=== PATIENT | male | born 1935 | race Caucasian/White ===

== ENCOUNTER → 2017-02-24 | Outpatient (CLI) | payer OTHER, MEDICARE ==
[2017-02-24 16:41] LABS: BASO % 0.4 %; BASO ABS # 0.05 K/uL (0-0.2); COMPLETE YES; EOS % 2.4 %; HEMATOCRIT 40.7 % (42-52); IG% 0.7 %; LYMPH % 28.2 %; MEAN CORPUSCULAR HEMOGLOBIN 32.8 pg (25-34); MEAN CORPUSCULAR HGB CONC 32.4 g/dl (32-36); MEAN PLATELET VOLUME 11.1 fL (7.4-10.4); MONO % 6.9 %; NEUT % 61.4 %; PLATELET COUNT 199 K/uL (130-400); RED BLOOD COUNT 4.03 M/uL (4.7-6.1); WHITE BLOOD COUNT 14.16 K/uL (4.8-10.8)
[2017-02-24 16:50] LABS: ALT/SGPT 22 U/L (12-78); AST/SGOT 18 U/L (15-37); BLOOD UREA NITROGEN 24 mg/dl (7-18); CALCIUM 9.6 mg/dl (8.5-10.1); CARBON DIOXIDE 31 mmol/L (21-32); CHLORIDE 106 mmol/L (98-107); GLUCOSE 95 mg/dl (70-99); POTASSIUM 4.1 mmol/L (3.5-5.1); SODIUM 142 mmol/L (136-145)
[2017-02-24 16:53] LABS: ALB/GLOB RATIO 0.9 (0.9-2); ALKALINE PHOSPHATASE 49 U/L (45-117)
[2017-02-25 06:10] LABS: ESTIMATED AVERAGE GLUCOSE 154 mg/dl; HA1C FLAG Normal (Normal)
--- NOTE | 2017-03-01 11:24 | CODING QUERY MEDICAL NECESSITY ---
SUPPORTING DIAGNOSIS NEEDED A supporting diagnosis is required for the test/procedure performed on this patient in order for us to be reimbursed by the patient's insurance. Please provide a supporting diagnosis for the following test/procedure listed below next to the test name along with your signature. *If there is no additional diagnosis for this patient that would support the following test/procedure please document that below next to the test/procedure. Test(s)/Procedure(s) that require a supporting diagnosis: DOS 02/24 * Hba1c DIAGNOSIS: Provider Signature: Date: Thank you Ariela Otto [facility] Information Management Once completed, please kindly fax back to [phone] For questions please call [phone]
== END | disposition home or self-care (01) ==
LOC: C.LABBC 13:54
PROVIDERS: ATTEND Internal Medicine
DX: I10 Essential (primary) hypertension (principal); E11.40 Type 2 diabetes mellitus with diabetic neuropathy, unspecified

== ENCOUNTER → 2018-01-05 | Outpatient (CLI) | payer OTHER, MEDICARE ==
[~2018-01-05] MED LIST: GADAVIST IV PRN
--- NOTE | 2018-01-05 10:01 | DIAGNOSTIC IMAGING REPORT ---
BRAIN COMBO FOR IAC CLINICAL HISTORY: Dizziness. COMPARISON STUDY: No previous studies for comparison. TECHNIQUE: Utilizing 1.5 Nkechi magnet multiplanar, multiecho imaging of the brain was performed pre and postcontrast administration with thin cut imaging through the internal auditory canals. Injection of 7.5 cc of Gadavist IV was uneventful. FINDINGS: No foci of restricted diffusion. No acute intracranial hemorrhage, midline shift or mass effect is present. There is mild atrophy. White matter T2 hyperintense foci reflect small vessel disease. There is no intracranial mass or pathologic enhancement. There are no abnormalities within the internal auditory canals. No mass or enhancement is present. Semicircular canals are intact. There is no cerebellopontine angle mass. There is trace fluid within the inferior left mastoid air cells. Ventricular system is unremarkable. The basilar cisterns are patent. There are no extra-axial collections. There may be a tiny mucous retention cyst within the left maxillary sinus. Orbits are unremarkable. IMPRESSION: 1. No abnormalities within the internal auditory canals. 2. No intracranial mass or pathologic enhancement. 3. Mild atrophy and moderate small vessel disease. Electronically signed by: Davon Malhotra M.D. 01/05/2018 10:00 AM Dictated Date/Time: 01/05/2018 9:40 AM
== END | disposition home or self-care (01) ==
LOC: C.MRIBC 08:15
PROVIDERS: ATTEND Physician Assistant
DX: R42 Dizziness and giddiness (principal)

== ENCOUNTER → 2018-01-11 | Outpatient (CLI) | payer OTHER, MEDICARE ==
--- NOTE | 2018-01-11 08:42 | DIAGNOSTIC IMAGING REPORT ---
DUPLEX RENAL ARTERY CLINICAL HISTORY: I10 HypertensionPatient schedu hypertension TECHNIQUE: Doppler arterial evaluation COMPARISON STUDY: None FINDINGS: Velocity characteristics are normal throughout. There is no significant velocity increase involving the medial arteries. Impedance characteristics are unremarkable. Resistive indices are slightly increased. IMPRESSION: 1. No significant stenotic process of the main renal arterial structures. 2. Slight increase in resistive indices suggesting at least a mild component of chronic small vessel change of the kidneys. The above report was generated using voice recognition software. It may contain grammatical, syntax or spelling errors. Electronically signed by: Frankie Page M.D. 01/11/2018 8:41 AM Dictated Date/Time: 01/11/2018 8:39 AM
--- NOTE | 2018-01-11 08:43 | DIAGNOSTIC IMAGING REPORT ---
RENAL ULTRASOUND HISTORY: Assess for kidney stones. M10.9 Gout [id number] COMPARISON: None. FINDINGS: Right kidney: 10.7 cm. No hydronephrosis. Normal corticomedullary differentiation. Moderate cortical renal thinning. No shadowing renal stones. Left kidney: 10.0 cm. No hydronephrosis. Normal corticomedullary differentiation. Moderate cortical renal thinning.. No shadowing renal stones Bladder: No bladder wall thickening. The bilateral ureteral jets were identified. IMPRESSION: 1. No hydronephrosis. 2. No definite renal calculi. 3. Moderate bilateral cortical renal thinning/scarring. Electronically signed by: Mauro Ta M.D. 01/11/2018 8:42 AM Dictated Date/Time: 01/11/2018 8:40 AM
== END | disposition home or self-care (01) ==
LOC: C.ULTR 07:30
PROVIDERS: ATTEND Internal Medicine Nephrology
DX: M10.9 Gout, unspecified (principal); I10 Essential (primary) hypertension

== ENCOUNTER → 2018-01-16 | Outpatient (CLI) | payer OTHER, MEDICARE ==
[2018-01-16 13:44] LABS: BASO % 0.3 %; BASO ABS # 0.04 K/uL (0-0.2); EOS % 2.1 %; EOS ABS # 0.25 K/uL (0-0.5); HEMATOCRIT 41.1 % (42-52); HEMOGLOBIN 13.2 g/dL (14.0-18.0); IG# 0.08 K/uL (0.00-0.02); LYMPH % 37.5 %; LYMPH ABS # 4.55 K/uL (1.2-3.4); MEAN CELL VOLUME 101.5 fL (80-100); MEAN CORPUSCULAR HEMOGLOBIN 32.6 pg (25-34); MEAN CORPUSCULAR HGB CONC 32.1 g/dl (32-36); MEAN PLATELET VOLUME 11.7 fL (7.4-10.4); MONO % 7.2 %; MONO ABS # 0.87 K/uL (0.11-0.59); NEUT % 52.2 %; NEUT ABS # 6.35 K/uL (1.4-6.5); PLATELET COUNT 207 K/uL (130-400); RED CELL DISTRIBUTION WIDTH CV 14.2 % (11.5-14.5); WHITE BLOOD COUNT 12.14 K/uL (4.8-10.8)
[2018-01-16 14:12] LABS: ALBUMIN 3.2 gm/dl (3.4-5.0); BLOOD UREA NITROGEN 20 mg/dl (7-18); CALCIUM 9.2 mg/dl (8.5-10.1); CARBON DIOXIDE 27 mmol/L (21-32); CREATININE 1.48 mg/dl (0.60-1.40); GLUCOSE 129 mg/dl (70-99); PHOSPHORUS 3.1 mg/dl (2.5-4.9); POTASSIUM 4.6 mmol/L (3.5-5.1); SODIUM 136 mmol/L (136-145); URIC ACID 3.7 mg/dl (2.6-7.2)
== END | disposition home or self-care (01) ==
LOC: C.LABBC 09:46
PROVIDERS: ATTEND Internal Medicine Nephrology
DX: M10.9 Gout, unspecified (principal)

== ENCOUNTER 2018-10-16 15:08 | Observation (INO) ==
--- NOTE | 2018-10-16 15:51 | XRay Report ---
XR chest 2V routine CLINICAL HISTORY: sob COMPARISON STUDY: 10/11/2018 FINDINGS: The heart is enlarged. Surgical clips are present in the right hilar region. There are righ t-sided rib deformities. There is a small right pleural effusion. There are right lower lung zone air space opacities. The left lung remains clear. There is radiographic evidence of underlying emphysema. [ IMPRESSION: 1. Postsurgical changes of the right 2. Persistent cardiomegaly 3. Persistent small right pleural effusion and right lower lung zone airspace opacities Electronically signed by: Jeb Garvey M.D. 10/16/2018 3:50 PM
[2018-10-16] MEDS: SODIUM CHLORIDE 0.9% 1000ML 1,000 ML IV SCH (16:21)
[2018-10-16 16:27] LABS: Basophils # (auto) 0.03 K/uL (0-0.2); Basophils % (auto) 0.2 %; Eosinophils # (auto) 0.54 K/uL (0-0.5); Eosinophils % (auto) 3.1 %; Hematocrit (blood only) 28.5 % (42-52); Hemoglobin 9.2 g/dL (14.0-18.0); Immature Granulocytes # (auto) 0.63 K/uL (0.00-0.02); Immature Granulocytes % (auto) 3.6 %; Lymphocytes # (auto) 3.04 K/uL (1.2-3.4); Lymphocytes % (auto) 17.2 %; Mean Corpuscular Hgb Conc 32.3 g/dL (32-36); Mean Platelet Volume 9.9 fL (7.4-10.4); Monocytes # (auto) 1.39 K/uL (0.11-0.59); Monocytes % (auto) 7.9 %; Neutrophils # (auto) 12.03 K/uL (1.4-6.5); Nucleated RBC # (auto) 0.09 K/uL (0-0); Nucleated RBC % (auto) 0.5 %; Platelet Count 374 K/uL (130-400); RDW Coefficient of Variation 14.5 % (11.5-14.5); RDW Standard Deviation 51.1 fL (36.4-46.3); Red Blood Count 2.88 M/uL (4.7-6.1); White Blood Count 17.66 K/uL (4.8-10.8)
[2018-10-16] MEDS: MoRPHine SULFATE 2 MG/ML CARP IV PRN (16:31)
[2018-10-16 16:43] LABS: BUN Creatinine Ratio 7.9 (10-20); Calcium 9.3 mg/dl (8.5-10.1); Creatinine Clr Calc Pharmacy 47.9 ml/min; Est GFR (African American) 62.2; Est GFR (Non-African American) 53.7; Potassium 4.2 mmol/L (3.5-5.1)
[2018-10-16] MEDS ORDERED: ALBUTEROL 0.5% NEB SOLN 2.5 MG/0.5 ML VIAL NEB PRN (17:22)
[2018-10-16] MEDS ORDERED: ONDANSETRON INJ 2 MG/ML 2 ML VIAL IV PRN (17:22)
[2018-10-16 18:11] LABS: Prothrombin Time 10.6 Seconds (9.0-12.0)
[2018-10-16] MEDS: ACETAMINOPHEN 325 MG TAB PO SCH ×2 (18:24→23:58)
[2018-10-16] MEDS: INSULIN ASPART 100 UNITS/ML 3 ML PEN SC SCH ×2 (18:26→21:08)
--- NOTE | 2018-10-16 20:08 | History and Physical Report ---
DATE OF ADMISSION: 10/16/2018 HISTORY OF PRESENT ILLNESS: John Bhatia is an 83-year-old male who underwent a thoracoscopic right lower lobectomy with an en bloc chest wall resection 1 week ago. For an 83-year-old man with poor lung function, he did remarkably well. He was discharged home on postop day 2. His real reason for coming back in is the patient was only taking Tylenol for pain. We gave him tramadol, but he states it did not help him. He did not want the Percocet when he left the hospital. He has had no fevers. He has had no chills. He states he does get a bit short of breath at times after pushing himself. His saturation on room air was 97%. His vital signs are stable. His lungs actually sound pretty good, and an x-ray shows no evidence of an infiltrate or significant effusion. He does have some postsurgical changes, but quite frankly, I think he looks good from the radiographic standpoint. He does appear to be a bit washed out. He has had some diarrhea over the last couple of days. I bronchoscoped him right after surgery and suctioned out some sputum, which grew out Haemophilus influenzae, and he has been on Augmentin since discharge. He looks pretty good, but I think he is a bit much for his elderly to take care of him at home. I am going to admit him for observation and hydrate him. His white count is a bit elevated at 17,660; however, he has been high at 17,400, in fact he was 15,850 before we operated. His hemoglobin has been stable, 6 days ago he was 9.1, he is 9.2 today. His sugars have been pretty well controlled at 113. He was under 200 the whole time he was here. I do have a big concern about his creatinine, but it appears to be stable. He had a baseline back in December of 1.65, when his high was 1.75, his low was 1.37, in fact is 1.25 today with a BUN of 10. Overall, I think he looks good physically except he is having tremendous amount of pain. I think some of this is neuropathic. His incisions are clean, and he sounds good. We are going to increase his Neurontin that he is on and also give him stronger narcotics. Will hydrate him. If things look good, I may let him go tomorrow.
[2018-10-16] MEDS ORDERED: GABAPENTIN 600 MG TAB PO SCH (21:00)
[2018-10-16] MEDS: METOPROLOL TARTRATE 25 MG TAB PO SCH (21:07)
[2018-10-16] MEDS: SIMVASTATIN 40 MG TAB PO SCH (21:07)
[2018-10-16] MEDS: OXYCODONE HCL IR 5 MG TAB (IMMEDIATE RELEASE) PO PRN (23:58)
[2018-10-17] MEDS: MoRPHine SULFATE 2 MG/ML CARP IV PRN (04:27)
[2018-10-17] MEDS: ACETAMINOPHEN 325 MG TAB PO SCH ×4 (05:21→22:58)
[2018-10-17] MEDS: SODIUM CHLORIDE 0.9% 1000ML 1,000 ML IV SCH ×3 (05:21→22:57)
[2018-10-17] MEDS: OXYCODONE HCL IR 5 MG TAB (IMMEDIATE RELEASE) PO PRN (07:50)
[2018-10-17] MEDS: SITAGLIPTIN PHOSPHATE 100 MG TAB PO SCH (08:49)
[2018-10-17] MEDS: ASPIRIN 81 MG ECTAB PO SCH (08:49)
[2018-10-17] MEDS: TAMSULOSIN HCL 0.4 MG CAP PO SCH (08:49)
[2018-10-17] MEDS: predniSONE 5 MG TAB PO SCH (08:50)
[2018-10-17] MEDS: METOPROLOL TARTRATE 25 MG TAB PO SCH ×2 (08:50→20:50)
[2018-10-17] MEDS: GABAPENTIN 800 MG TAB PO SCH ×3 (08:50→20:49)
[2018-10-17] MEDS: ENOXAPARIN INJ 30 MG/0.3 ML SYR SQ SCH (08:51)
[2018-10-17] MEDS: PANTOprazole 40 MG TAB PO SCH (08:51)
[2018-10-17] MEDS: ALLOPURINOL 300 MG TAB PO SCH (08:51)
[2018-10-17] MEDS: INSULIN ASPART 100 UNITS/ML 3 ML PEN SC SCH ×4 (08:52→20:51)
--- NOTE | 2018-10-17 19:14 | Progress Note ---
DATE: 10/17/2018 Mr. Bhatia is an 83-year-old male who underwent a thoracoscopic lobectomy with a chest wall resection 8 days ago. I admitted him yesterday as he was quite weak. He also complained mostly of pain uncontrolled with simply Tylenol. We explained to him that he needed narcotics; however, he and his were both in an exasperated state. I went ahead and admitted him. His x-ray looked good. He is walking in the hallways without oxygen; however, he is having tremendous amount of pain and diarrhea. I am going to check a C. diff on him today. I am going to stop his IVs as his BUN and creatinine and labs overall make him appear to be euvolemic. If I have any questions, I will continue his IV fluid especially in light of his diarrhea. We will give him Imodium and start him on vancomycin by mouth.
[2018-10-17] MEDS: SIMVASTATIN 40 MG TAB PO SCH (20:50)
[2018-10-18] MEDS: ACETAMINOPHEN 325 MG TAB PO SCH ×2 (05:34→11:39)
[2018-10-18] MEDS: METOPROLOL TARTRATE 25 MG TAB PO SCH (08:40)
[2018-10-18] MEDS: SITAGLIPTIN PHOSPHATE 100 MG TAB PO SCH (08:40)
[2018-10-18] MEDS: ASPIRIN 81 MG ECTAB PO SCH (08:40)
[2018-10-18] MEDS: TAMSULOSIN HCL 0.4 MG CAP PO SCH (08:40)
[2018-10-18] MEDS: PANTOprazole 40 MG TAB PO SCH (08:41)
[2018-10-18] MEDS: ALLOPURINOL 300 MG TAB PO SCH (08:41)
[2018-10-18] MEDS: predniSONE 5 MG TAB PO SCH (08:41)
[2018-10-18] MEDS: ENOXAPARIN INJ 30 MG/0.3 ML SYR SQ SCH (08:41)
[2018-10-18] MEDS: GABAPENTIN 800 MG TAB PO SCH ×2 (08:41→13:24)
[2018-10-18] MEDS: INSULIN ASPART 100 UNITS/ML 3 ML PEN SC SCH ×2 (08:42→13:17)
[2018-10-18] MEDS ORDERED: RASPBERRY SYRUP 5 ML UDP PO SCH (12:00)
[2018-10-18] MEDS ORDERED: VANCOMYCIN HCL 125 MG/2.5ML SOLN PO SCH (12:00)
--- NOTE | 2018-10-19 10:51 | Discharge Summary ---
Mr. Bhatia was admitted 2 days ago for essentially pain that was uncontrolled with Tylenol. He is 83, and he and his were a bit stressed after this rather major surgery he had a week ago. He was much better after we hydrated him. He is ambulating in the hallway. The patient was responsive to increasing doses of his gabapentin. I think some of this pain is neurogenic. It should be noted that patient has been in a considerable amount of pain from this tumor growing into his chest wall. 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 It is interesting in that he has a persistently high white count. He back in December was 14,000, in August he was 15,850, and was 17,430 after surgery. It was 17,660 on admission. In addition, he also has some mild renal insufficiency, his baseline runs between 1.48 and 1.75, and he was 1.25 on admission. He also had some diarrhea. We did send off to see a Clostridium difficile titer, which is not back yet. He is quite pleased with his x-ray. All in all, I think the patient looks good. He had quite a surgery just 9 days ago, we did an en bloc resection of his chest wall of his lobe. Initially he did very well; however, he developed more pain after he got home, which may have been due to the fact that his liposomal bupivacaine block wore off. At any rate, he had tramadol which he said did not work, so he is only taking Tylenol. He responded well to narcotics. We are going to set the patient up for outpatient rehab. I will see him back in the office in a week with an x-ray. All of his incisions are clean. His lungs sound pretty good. He is on room air ambulating. We will treat his diarrhea as well as his pain, and I will see him back in the office next week.
== END 2018-10-18 16:35 | disposition home or self-care (01) ==
LOC: ED 15:08 → 3W 15:08

== ENCOUNTER 2019-05-30 15:12 | Inpatient (IN) ==
[2019-05-30] MEDS ORDERED: VANCOMYCIN HCL 1,250 MG in SODIUM CHLORIDE 0.9% 500 ML IV ONE (15:58)
[2019-05-30] MEDS ORDERED: VANCOMYCIN CONSULT ACTIVE PRN (15:58)
[2019-05-30] MEDS ORDERED: SODIUM CHLORIDE 0.9% 1000ML 2,000 ML IV ONE (15:58)
[2019-05-30] MEDS ORDERED: ACETAMINOPHEN 1,000 MG/100 ML VIAL IV STA (15:58)
[2019-05-30] MEDS ORDERED: PIPERACILLIN/TAZOBACTAM 4.5 GM/120 ML BAG IV ONE (15:59)
[2019-05-30 16:19] LABS: Basophils # (auto) 0.03 K/uL (0-0.2); Basophils % (auto) 0.2 %; Eosinophils # (auto) 0.15 K/uL (0-0.5); Eosinophils % (auto) 0.9 %; Hematocrit (blood only) 37.5 % (42-52); Hemoglobin 12.1 g/dL (14.0-18.0); Immature Granulocytes # (auto) 0.04 K/uL (0.00-0.02); Immature Granulocytes % (auto) 0.2 %; Lymphocytes # (auto) 2.78 K/uL (1.2-3.4); Lymphocytes % (auto) 16.6 %; Mean Corpuscular Hgb Conc 32.3 g/dL (32-36); Mean Corpuscular Volume 100.3 fL (80-100); Mean Platelet Volume 10.2 fL (7.4-10.4); Monocytes # (auto) 1.49 K/uL (0.11-0.59); Monocytes % (auto) 8.9 %; Neutrophils # (auto) 12.21 K/uL (1.4-6.5); Neutrophils % (auto) 73.2 %; Platelet Count 152 K/uL (130-400); RDW Coefficient of Variation 14.9 % (11.5-14.5); Red Blood Count 3.74 M/uL (4.7-6.1)
[2019-05-30 16:30] LABS: Partial Thromboplastin Time 27.9 Seconds (21.0-31.0); Prothrombin Time 10.6 Seconds (9.0-12.0)
[2019-05-30 16:35] LABS: Alanine Aminotransferase 12 U/L (12-78); Albumin Level 3.2 gm/dl (3.4-5.0); Aspartate Aminotransferase 10 U/L (15-37); BUN Creatinine Ratio 16.5 (10-20); Bilirubin Direct 0.1 mg/dl (0-0.2); Blood Urea Nitrogen 26 mg/dl (7-18); Calcium 9.7 mg/dl (8.5-10.1); Carbon Dioxide 29 mmol/L (21-32); Chloride 101 mmol/L (98-107); Est GFR (African American) 47.2; Est GFR (Non-African American) 40.8; Glucose 121 mg/dl (70-99); Potassium 4.6 mmol/L (3.5-5.1); Sodium 137 mmol/L (136-145)
[2019-05-30 16:40] LABS: Albumin Globulin Ratio 0.6 (0.9-2); Alkaline Phosphatase 56 U/L (45-117); Bilirubin,Total 0.4 mg/dl (0.2-1); Globulin 4.9 gm/dl (2.5-4.0); Total Protein 8.1 gm/dl (6.4-8.2); Troponin I < 0.015 ng/ml (0-0.045)
--- NOTE | 2019-05-30 16:40 | XRay Report ---
XR chest 1V portable CLINICAL HISTORY: Sepsis dyspnea COMPARISON STUDY: 11/26/2018 FINDINGS: Stable postoperative changes right hemithorax. Resection of several ribs which has been pre sent previously. Central catheter in the right atrium. Lungs otherwise appear clear. There are no focal infiltrative changes. IMPRESSION: Chronic and postoperative change. No acute process. The above report was generated using voice recognition software. It may contain grammatical, syntax or spelling errors. Electronically signed by: Frankie Page M.D. 05/30/2019 4:39 PM
--- NOTE | 2019-05-30 17:56 | CT Scan Report ---
CT SCAN OF THE NECK WITHOUT IV CONTRAST CLINICAL HISTORY: Sepsis. Periodontal infection. COMPARISON STUDY: PET/CT dated 09/19/2018. TECHNIQUE: CT scan of the soft tissues of the neck was performed from the skull base to the upper [address]. Images are reviewed in the axial, sagittal, and coronal planes. IV contrast was not administered as per the referring clinician. Note that the examination was performed in significantly suboptimal fashion without IV contrast. A dose lowering technique was utilized adhering to the principles of [place] [facility]. CT DOSE: 407.26 mGy.cm FINDINGS: Pharynx: The unenhanced pharyngeal soft tissues are grossly normal in appearance. The pharyngeal airw ay is patent. There is no evidence of mass lesion. The vocal cords are symmetric. The parapharyngeal fat is well maintained. The prevertebral/retropharyngeal soft tissues are within normal limits. The e piglottis is normal. Circumferential wall thickening is suggested in the esophagus. Dentition: Evaluation of the oral cavity is significantly degraded by streak artifact from dental ama lgam. There is a large lucency identified involving the socket of a left mandibular molar with overly ing cortical breakthrough. There is mild surrounding inflammatory change. A large dental raphael is sugey ntified involving the most posterior left maxillary molar (axial image #183). This is partially impac ti within the left maxillary antrum. There is no evidence of organized fluid collection on this unen hanced examination. Soft tissues: There is advanced atherosclerotic calcification of the carotid bulbs. A right subclavia n central venous infusion port is noted. Lymphadenopathy: No cervical lymphadenopathy is seen Thyroid: Normal in size and attenuation. Salivary glands: The parotid and submandibular glands are within normal limits. Brain parenchyma: There is age-related involutional change noting subcortical and periventricular delbert roangiopathic disease. Orbits: The bony orbits are intact. Orbital contents are normal in appearance noting bilateral ocular lens implants. Skeletal structures: The skeletal structures are osteopenic. Imaged portions of the calvarium at the skull base are within normal limits. The cervical spine appears intact noting multilevel spondylosis. No lytic or blastic lesion is identified. Sinuses and mastoids: Trace fluid is noted within the left maxillary antrum. The remaining nasal sinu ses are clear. The mastoid air cells are well pneumatized. Lung apices: Emphysematous change is noted in the upper lobes. Volume loss in the right lung suggests previous surgical resection.. IMPRESSION: 1. Suboptimal examination without IV contrast. 2. There is a large lucency identified involving the socket of the most posterior left mandibular mol ar with cortical breakthrough and mild surrounding inflammation. 3. There is a large dental raphael identified within most posterior left maxillary molar which is parti ally impacted. Follow-up with dentistry is recommended. 4. Emphysema. Electronically signed by: Ulises Arrieta M.D. 05/30/2019 5:55 PM
--- NOTE | 2019-05-30 18:28 | History & Physical Report ---
Date of Service May 30, 2019 Assessment & Plan (1) Sepsis: Pt is an 84yo gentleman with a PMHx of IA, CAD s/p stent placement, squamous cell carcinoma s/p chemotherapy which ended 2 months ago and rheumatoid arthritis currently being treated with Remicade who presents with sepsis likely secondary to a tooth infection. Sepsis secondary to possible tooth infection -Pt states he had a tooth removed last week and has been in pain since then. -was reassessed by his dentist with no concerns for infection -on admission increased WBC, tachycardic -CT neck 05/30- no abscess noted; just inflammation and dental caries. -No pulmonary source of infection noted on chest XR-unremarkable -UA pending--for possible urinary infection source -blood cultures pending; will also obtain urine culture -Continue Zosyn; can consider switching to Unasyn -s/p one dose of vancomycin in ED; MRSA swab pending Hypotension -Pt likely in septic shock -s/p fluid bolus in the ED -Continue gentle fluids given renal disease. -will hold metoprolol given hypotension currently -continue abx treatment -will continue to monitor Rheumatoid Arthritis -On remicade and chronic Prednisone 5mg -will hold remicade and Prednisone -will start stress dose of IV hydrocortisone 50mg q12hr -continue tylenol as needed Neuropathy -continue gabapentin DMII -Hold home Januvia -ISS Hx of IA/CAD -continue home aspirin, statin -given current hypotension, will hold metoprolol Hx of SCC -completed chemotherapy 2 months ago -continue albuterol as needed CKD -Currently with elevated Cr -However, comparable to previous levels -on gentle fluids Constipation -continue docusate sodium Hx of Gout -continue allopurinol Health maintenance -continue calcium, vitamin D3, folic acid, multivitamins, omega fatty oils DVT prophylaxis: Heparin SQ FEN/GI: Diabetic diet; gentle fluids CODE STATUS: DNR, Intubation ok Dispo: Med Surg with Tele History of Present Illness Primary Care Provider: Chacho Beyer MD Pt is an 84yo gentleman with a PMHx of IA, CAD s/p stent placement, squamous cell carcinoma s/p chemotherapy which ended 2 months ago and rheumatoid arthritis currently being treated with Remicade who presents with sepsis likely secondary to a tooth infection. States he had the tooth removed about a week ago and has had consistent pain since then. Has gone back to the dentist and was told that he has a "dry socket". Has been unable to eat because of the tooth pain. Presented to ED today on the advice of Dr. Holguin his lobster catcher, who he saw earlier today. States he was having fevers, chills and sweats at home associated with dizziness whenever he got up. That has been going on for the past day. PMHx: IA, coronary and carotid artery disease, squamous cell carcinoma, bladder cancer, rheumatoid arthritis, neuropathy, DMII, CKD. PSH: Stent placement, SCC resection, bladder cancer resection. Social Hx: Lives at home with his . Uses a walker to ambulate and able to perform ADLs before this. Meds: As listed below. Allergies: Metformin, states he gets diarrhea Allergies Allergy/AdvReac Type Severity Reaction Status Date / Time metformin [From Glucophage] AdvReac Intermediate Diarrhea Verified 05/30/19 16:32 Home Medications Home Medications Medication Instructions Recorded Confirmed Type Calcium 600 + D(3) 1 tab PO QAM 09/03/18 05/30/19 History Januvia 100 mg PO QAM 09/03/18 05/30/19 History albuterol sulfate [ProAir HFA] 2 puff INHALATION Q6H PRN 09/03/18 05/30/19 Hi story allopurinol 300 mg PO QAM 09/03/18 05/30/19 History aspirin [Aspir-81] 81 mg PO QPM 09/03/18 05/30/19 History cholecalciferol (vitamin D3) 2,000 units PO QPM 09/03/18 05/30/19 History folic acid 400 mcg PO QAM 09/03/18 05/30/19 History metoprolol tartrate 25 mg PO BID 09/03/18 05/30/19 History multivitamin [Multiple Vitamins] 1 tab PO QAM 09/03/18 05/30/19 History omega-3 fatty acids-fish oil [Fish 1 cap PO BID 09/03/18 05/30/19 History Oil] prednisone 5 mg PO QPM 09/03/18 05/30/19 History acetaminophen [Tylenol Extra 1,000 mg PO Q6H PRN 11/07/18 05/30/19 History Strength] docusate sodium 100 mg PO DAILY 05/30/19 05/30/19 History gabapentin 300 mg PO QAM 05/30/19 05/30/19 History gabapentin 600 mg PO QPM 05/30/19 05/30/19 History infliximab [Remicade] 0 mg IV .[id number] 05/30/19 05/30/19 History simvastatin 40 mg PO QPM 05/30/19 05/30/19 History Past Med/Surg History Medical History Rheumatoid arthritis (Chronic) Neuropathy Type II diabetes mellitus niddm Myocardial infarction 2001 Bladder cancer (Acute) s/p surgery Skin cancer of face (Acute) removed Anemia Carotid artery disease DR. HOLGUIN monitoring - reports no surgical intervention needed at present time Chronic obstructive pulmonary disease Coronary artery disease Deep vein thrombosis > 30 years ago - treated - LEG UNKNOWN CAUSE Dizziness HAVING SOME DIZZY EPISODES AND HAD FALLEN AND HAD STITCHES IN HAND AND WAS REMOVED 11/07/18 Gout Hyperlipidemia Hypertension Lung cancer S/P R Thoracoscopy and R Lower Lobectomy with portion of [address] Radha Arcos 10/09/18 Surgical History History of arthroscopy (Acute) LEFT SHOULDER History of heart artery stent (Acute) 1999 ONE STENT, 2001 TWO STENTS FOLLOWS WITH DR HOLGUIN History of Mohs micrographic surgery for skin cancer History of cardiac cath x 3 1999 - cp - 1 stent placed - [facility] - follows w/ dr. lozada 03/2002 - [place] - 1 stent placed - [facility] 06/2002 - reason? - 1 stent placed - [facility] History of cataract surgery RIGHT AND LEFT History of lobectomy of lung RIGHT LUNG AND THOROSCOPY History of surgery TRANSURETHRAL RESECTION OF BLADDER TUMOR Hx of colonoscopy Family History Other No significant family history Social History Preferred Language: Wolof Communication Ability: Effective Visual Impairment: No Limitations Beliefs That Will Affect Care: None marital status: Current Living Situation: Spouse Current Living Situation Comment: and granddaughter and great grandchildren Other Information That Helps Us Care for You: No Feels Safe at Home: Yes Safety Concerns: Feels Safe At This Time Smoking Status: Former smoker Tobacco Type: cigarettes Cigarettes Per Day: 1/2 ppd Second Hand Exposure: No Hx Alcohol Use: Yes Alcohol type: hard liquor Hx Substance Use: No Review of Systems Constitutional: + fever, + chills, + fatigue and + anorexia Ear, Nose, Mouth, Throat: + dental pain; no sore throat and no dysphagia Respiratory: no cough and no dyspnea Cardiovascular: + lightheadedness; no chest pain, no palpitations, no syncope and no edema Gastrointestinal: no abdominal pain, no nausea, no vomiting and no constipation Genitourinary: no dysuria Neurologic: + unsteadiness; no headache(s) and no confusion Psychiatric: no confusion Physical Exam Constitutional: + frail appearing Eyes: PERRL, conjunctivae normal, anicteric sclerae ENMT: Mouth / Teeth: 1. Mouth with opening in this spot; no signs of erythema or drainage; no fluctuant mass noted Neck: no anterior neck swelling Respiratory: normal respiratory effort, lungs clear to auscultation Cardiovascular: RRR, no murmur, no edema Gastrointestinal (Abdomen): Inspection/Auscultation: + scaphoid Percussion/Palpation: abdomen soft; abdomen nontender, no guarding and no hepatosplenomegaly Skin: no rashes, warm and dry Neurologic: PERRL, EOMI, accommodation nl, no face palsy, no dysarthria Psychiatric: A+Ox3, euthymic affect Results & Data Vital Signs (Past 12 Hours) Vital Signs Temp Pulse Resp BP Pulse Ox 05/30/19 17:30 18 94/50 L 95 05/30/19 17:21 92 H 18 91/47 L 92 05/30/19 15:40 37.8 C H 109 H 20 88/58 L 95 Laboratory Results Laboratory Results - last 24 hr 05/30/19 05/30/19 05/30/19 16:09 16:09 16:09 WBC 16.70 H RBC 3.74 L Hgb 12.1 L Hct 37.5 L MCV 100.3 H MCH 32.4 MCHC 32.3 RDW Std Deviation 54.0 H RDW Coeff of Miryam 14.9 H Plt Count 152 MPV 10.2 Immature Gran % (Auto) 0.2 Neut % (Auto) 73.2 Lymph % (Auto) 16.6 Preble % (Auto) 8.9 Eos % (Auto) 0.9 Baso % (Auto) 0.2 Immature Gran # (Auto) 0.04 H Neut # (Auto) 12.21 H Lymph # (Auto) 2.78 Preble # (Auto) 1.49 H Eos # (Auto) 0.15 Baso # (Auto) 0.03 PT 10.6 INR 1.0 APTT 27.9 PTT Ratio 1.0 Sodium 137 Potassium 4.6 Chloride 101 Carbon Dioxide 29 Anion Gap 7.0 BUN 26 H Creatinine 1.56 H Est Cr Clr Drug Dosing 33.0 Est GFR ( Amer) 47.2 Est GFR (Non-Af Amer) 40.8 BUN/Creatinine Ratio 16.5 Glucose 121 H Lactate Calcium 9.7 Phosphorus 3.0 Magnesium 2.0 Total Bilirubin 0.4 Direct Bilirubin 0.1 AST 10 L ALT 12 Alkaline Phosphatase 56 Troponin I < 0.015 Total Protein 8.1 Albumin 3.2 L Globulin 4.9 H Albumin/Globulin Ratio 0.6 L 05/30/19 16:09 WBC RBC Hgb Hct MCV MCH MCHC RDW Std Deviation RDW Coeff of Miryam Plt Count MPV Immature Gran % (Auto) Neut % (Auto) Lymph % (Auto) Preble % (Auto) Eos % (Auto) Baso % (Auto) Immature Gran # (Auto) Neut # (Auto) Lymph # (Auto) Preble # (Auto) Eos # (Auto) Baso # (Auto) PT INR APTT PTT Ratio Sodium Potassium Chloride Carbon Dioxide Anion Gap BUN Creatinine Est Cr Clr Drug Dosing Est GFR ( Amer) Est GFR (Non-Af Amer) BUN/Creatinine Ratio Glucose Lactate 1.6 Calcium Phosphorus Magnesium Total Bilirubin Direct Bilirubin AST ALT Alkaline Phosphatase Troponin I Total Protein Albumin Globulin Albumin/Globulin Ratio Medications Administered Home Medications Calcium 600 + D(3) 1 tab PO QAM 09/03/18 [History Confirmed 05/30/19] Januvia 100 mg PO QAM 09/03/18 [History Confirmed 05/30/19] albuterol sulfate [ProAir HFA] 2 puff INHALATION Q6H PRN 09/03/18 [History Confirmed 05/30/19] allopurinol 300 mg PO QAM 09/03/18 [History Confirmed 05/30/19] aspirin [Aspir-81] 81 mg PO QPM 09/03/18 [History Confirmed 05/30/19] cholecalciferol (vitamin D3) 2,000 units PO QPM 09/03/18 [History Confirmed 05/30/19] folic acid 400 mcg PO QAM 09/03/18 [History Confirmed 05/30/19] metoprolol tartrate 25 mg PO BID 09/03/18 [History Confirmed 05/30/19] multivitamin [Multiple Vitamins] 1 tab PO QAM 09/03/18 [History Confirmed 05/30/19] omega-3 fatty acids-fish oil [Fish Oil] 1 cap PO BID 09/03/18 [History Confirmed 05/30/19] prednisone 5 mg PO QPM 09/03/18 [History Confirmed 05/30/19] acetaminophen [Tylenol Extra Strength] 1,000 mg PO Q6H PRN 11/07/18 [History Confirmed 05/30/19] docusate sodium 100 mg PO DAILY 05/30/19 [History Confirmed 05/30/19] gabapentin 300 mg PO QAM 05/30/19 [History Confirmed 05/30/19] gabapentin 600 mg PO QPM 05/30/19 [History Confirmed 05/30/19] infliximab [Remicade] 0 mg IV .[id number] 05/30/19 [History Confirmed 05/30/19] simvastatin 40 mg PO QPM 05/30/19 [History Confirmed 05/30/19] Active Medications Heparin Sodium (Porcine) (Heparin Sodium (Porcine)) 5,000 units SQ Q12 SARY Stop: 06/29/19 20:59 Piperacillin Sod/Tazobactam Sod (Zosyn) 4.5 gm in 120 mls @ 30 mls/hr IV NOW ONE Stop: 05/30/19 19:58 Last Infusion: 05/30/19 19:25 Dose: Infused Documented by: Sodium Chloride (Nss) 500 mls @ 80 mls/hr IV .[id number] SARY Stop: 06/29/19 18:29 Last Admin: 05/30/19 19:03 Dose: 80 mls/hr Documented by: Hydrocortisone Sodium (Succinate 50 mg/ Syringe) 1 mls @ 4 mls/min IV Q12H SARY Stop: 06/30/19 07:59 Hydrocortisone Sodium (Succinate 50 mg/ Syringe) 1 mls @ 4 mls/min IV 2000 SARY Stop: 05/30/19 20:01 Insulin Aspart (Novolog Flexpen) 0 units SC ACHS SARY Stop: 06/29/19 20:59 Miscellaneous Information (Consult) 1 ea N/A UD PRN PRN Reason: Consult Stop: 06/29/19 15:57 Supervising Physician Co-Signing Physician Notes The patient was seen and examined by me. I agree with the assessment and plan done by the resident. Lungs are clear. Heart rhythm is regular. Abdomen soft with active bowel sounds. Nondistended. Nontender. Extremities reveal no cyanosis clubbing or edema. He does have evidence of recent extraction of a left posterior mandibular molar. There is some tenderness in this region and in the submandibular area but no significant adenopathy. No abscess seen on CT scan. He will remain on IV antibiotics. Await blood culture results. PG Care Time/CCT Total # of Minutes Spent Total Time Spent with Patient: Total time spent is greater than 50% in coordination of care (as documented) at patient's floor/unit and/or counseling patient:
[2019-05-30] MEDS: SODIUM CHLORIDE 0.9% 500 ML IV SCH ×2 (19:03→22:18)
[2019-05-30] MEDS ORDERED: HYDROCORTISONE SOD 50 MG in SYRINGE 0 ML IV SCH (20:00)
--- NOTE | 2019-05-30 20:49 | Emergency Department Note ---
Entered by Anna Pabon acting as a scribe for Trino Oden MD History of Present Illness General Chief complaint: Dizziness Stated complaint: DIZZINESS,CHILLS, TOOTH PULLED DRY SOCKET Time Seen by Provider: 05/30/19 15:43 Source: patient History of Present Illness Onset (ago): hour(s) (earlier this morning) Location: head (dizziness) Pain Consistency: + other (worsening) Maximum Pain Intensity: 8 Relieved By: + none Associated symptoms: + nausea/vomiting (positive nausea, negative vomiting) and + weakness The patient is a 84 year old M who presents to the Emergency Room with complaints of worsening dizziness that started earlier this morning. He states that he was experiencing weakness, dizziness, and nausea when he woke up today. He notes that he had a tooth pulled last week. He adds that he currently has pain in his mouth. He notes that he went to see his dentist yesterday for his pain. He states that his dentist diagnosed him with dry sockets, packed his mouth, and discharged him home. He notes that he saw his emergency doctor, Dr. Holguin, today who referred him to the ED for possible sepsis. He denies [facility] experiencing vomiting. He notes that he recently got done with chemotherapy for a previous cancer. He adds that he has a history of rheumatoid arthritis. Home Medications Home Medications Medication Instructions Recorded Confirmed Type Calcium 600 + D(3) 1 tab PO QAM 09/03/18 05/30/19 History Januvia 100 mg PO QAM 09/03/18 05/30/19 History albuterol sulfate [ProAir HFA] 2 puff INHALATION Q6H PRN 09/03/18 05/30/19 H istory allopurinol 300 mg PO QAM 09/03/18 05/30/19 History aspirin [Aspir-81] 81 mg PO QPM 09/03/18 05/30/19 History cholecalciferol (vitamin D3) 2,000 units PO QPM 09/03/18 05/30/19 History folic acid 400 mcg PO QAM 09/03/18 05/30/19 History metoprolol tartrate 25 mg PO BID 09/03/18 05/30/19 History multivitamin [Multiple Vitamins] 1 tab PO QAM 09/03/18 05/30/19 History omega-3 fatty acids-fish oil [Fish 1 cap PO BID 09/03/18 05/30/19 History Oil] prednisone 5 mg PO QPM 09/03/18 05/30/19 History acetaminophen [Tylenol Extra 1,000 mg PO Q6H PRN 11/07/18 05/30/19 History Strength] docusate sodium 100 mg PO DAILY 05/30/19 05/30/19 History gabapentin 300 mg PO QAM 05/30/19 05/30/19 History gabapentin 600 mg PO QPM 05/30/19 05/30/19 History infliximab [Remicade] 0 mg IV .[id number] 05/30/19 05/30/19 History simvastatin 40 mg PO QPM 05/30/19 05/30/19 History Allergies Allergy/AdvReac Type Severity Reaction Status Date / Time metformin [From Glucophage] AdvReac Intermediate Diarrhea Verified 05/30/19 16:32 Past Med/Surg History Medical History Rheumatoid arthritis (Chronic) Neuropathy Type II diabetes mellitus niddm Myocardial infarction 2001 Bladder cancer (Acute) s/p surgery Skin cancer of face (Acute) removed Anemia Carotid artery disease DR. HOLGUIN monitoring - reports no surgical intervention needed at present time Chronic obstructive pulmonary disease Coronary artery disease Deep vein thrombosis > 30 years ago - treated - LEG UNKNOWN CAUSE Dizziness HAVING SOME DIZZY EPISODES AND HAD FALLEN AND HAD STITCHES IN HAND AND WAS REMOVED 11/07/18 Gout Hyperlipidemia Hypertension Lung cancer S/P R Thoracoscopy and R Lower Lobectomy with portion of [address] Arcos 10/09/18 Surgical History History of arthroscopy (Acute) LEFT SHOULDER History of heart artery stent (Acute) 1999 ONE STENT, 2001 TWO STENTS FOLLOWS WITH DR HOLGUIN History of Mohs micrographic surgery for skin cancer History of cardiac cath x 3 1999 - cp - 1 stent placed - [facility] - follows w/ dr. lozada 03/2002 - [place] - 1 stent placed - [facility] 06/2002 - reason? - 1 stent placed - [facility] History of cataract surgery RIGHT AND LEFT History of lobectomy of lung RIGHT LUNG AND THOROSCOPY History of surgery TRANSURETHRAL RESECTION OF BLADDER TUMOR Hx of colonoscopy Family History Other No significant family history Social History Preferred Language: Uzbek Communication Ability: Effective Visual Impairment: No Limitations Beliefs That Will Affect Care: None marital status: Current Living Situation: Spouse Current Living Situation Comment: and granddaughter and great grandchildren Other Information That Helps Us Care for You: No Feels Safe at Home: Yes Safety Concerns: Feels Safe At This Time Smoking Status: Former smoker Tobacco Type: cigarettes Cigarettes Per Day: 1/2 ppd Second Hand Exposure: No Hx Alcohol Use: Yes Alcohol type: hard liquor Hx Substance Use: No Review of Systems See HPI for pertinent positives & negatives. and A total of 10 systems reviewed and were otherwise negative Physical Exam Vital Signs Vital Signs - 24 hr 05/30/19 15:40 05/30/19 17:21 05/30/19 17:30 Temperature 37.8 C H Temperature Source Oral Sepsis Recent Fever Within 48 Hours Yes Sepsis New/Unexplained Change in Mental Status No Sepsis Action Taken by Nursing No Action Required Pulse Rate 109 H 92 H Pulse Rate from SpO2 Sensor 88 Pulse Rhythm Regular Pulse Strength Normal Respiratory Rate 20 18 18 Respiratory Effort / Characteristics Non-Labored Spontaneous Respiratory Depth Normal Respiratory Pattern Regular Blood Pressure 88/58 L 91/47 L 94/50 L Blood Pressure Mean 68 61 64 Blood Pressure Position Sitting Pulse Oximetry 95 92 95 Oxygen Delivery Method Room Air Room Air Room Air 05/30/19 17:47 05/30/19 17:54 05/30/19 18:00 Temperature Temperature Source Sepsis Recent Fever Within 48 Hours Sepsis New/Unexplained Change in Mental Status Sepsis Action Taken by Nursing Pulse Rate 82 80 78 Pulse Rate from SpO2 Sensor 82 80 78 Pulse Rhythm Pulse Strength Respiratory Rate 13 17 15 Respiratory Effort / Characteristics Respiratory Depth Respiratory Pattern Blood Pressure 76/42 L 89/41 L 89/40 L Blood Pressure Mean 53 57 56 Blood Pressure Position Pulse Oximetry 96 96 96 Oxygen Delivery Method 05/30/19 18:15 05/30/19 18:19 05/30/19 18:30 Temperature Temperature Source Sepsis Recent Fever Within 48 Hours Sepsis New/Unexplained Change in Mental Status Sepsis Action Taken by Nursing Pulse Rate 71 70 59 L Pulse Rate from SpO2 Sensor 71 70 Pulse Rhythm Pulse Strength Respiratory Rate 16 16 15 Respiratory Effort / Characteristics Respiratory Depth Respiratory Pattern Blood Pressure 75/40 L 84/39 L 89/43 L Blood Pressure Mean 51 54 58 Blood Pressure Position Pulse Oximetry 96 95 96 Oxygen Delivery Method Room Air 05/30/19 18:45 05/30/19 19:00 Temperature Temperature Source Sepsis Recent Fever Within 48 Hours Sepsis New/Unexplained Change in Mental Status Sepsis Action Taken by Nursing Pulse Rate 60 59 L Pulse Rate from SpO2 Sensor Pulse Rhythm Pulse Strength Respiratory Rate 15 15 Respiratory Effort / Characteristics Respiratory Depth Respiratory Pattern Blood Pressure 91/45 L 91/45 L Blood Pressure Mean 60 60 Blood Pressure Position Pulse Oximetry 95 95 Oxygen Delivery Method Room Air Room Air GENERAL: Awake, alert, fatigued appearing, no distress HENT: Normocephalic, atraumatic. TM's normal. Oropharynx with dry mucous membranes and otherwise unremarkable. Left lower molar tooth (#19) extraction, no gingival edema or injection. No tongue elevation or trismus. EYES: PERRL. EOMI. Normal conjunctiva. Sclera non-icteric. NECK: Supple. No nuchal rigidity. FROM. No JVD or bruit. RESPIRATORY: CTAB CARDIAC: Tachycardic rate and regular rhythm. ABDOMEN: Soft, non distended. No tenderness to palpation. No rebound or guarding. No masses. RECTAL: Deferred. MUSCULOSKELETAL: Unremarkable. No edema. No discoloration. Gross motor strength symmetric. NEURO: Normal sensorium. No sensory or motor deficits noted. SKIN: No rash or jaundice noted. LYMPH: No adenopathy Course 1550: The patient was evaluated in room B9. A complete history and physical exam was performed. 1721: I am paging to the [facility] Hospitalist for the patient. 1723: I reviewed the patient's case with Dr. Banuelos, [facility] Hospitalist. He will evaluate the patient for further management. Consultations Consultation #1: I reviewed the patient's case with Dr. Banuelos [facility] Hospitalist. He will evaluate the patient for further management. Time: 17:23 Administered Medications Aspirin (Ecotrin Ectab) 81 mg PO QPM [facility] Stop: 06/29/19 21:41 Last Admin: 05/30/19 23:07 Dose: 81 mg Documented by: [id number] Fish Oil ([place]-3 (Purified Fish Oil)) 1 gm PO BID [facility] Stop: 06/29/19 21:41 Last Admin: 05/30/19 23:08 Dose: 1 gm Documented by: [id number] Gabapentin (Neurontin) 600 mg PO QPM [facility] Stop: 06/29/19 21:41 Last Admin: 05/30/19 23:07 Dose: 600 mg Documented by: [id number] Heparin Sodium (Porcine) (Heparin Sodium (Porcine)) 5,000 units SQ Q12 [facility] Stop: 06/29/19 20:59 Last Admin: 05/30/19 22:18 Dose: Not Given Documented by: [id number] Sodium Chloride (Nss) 500 mls @ 80 mls/hr IV .Q6H15M [facility] Stop: 06/29/19 18:29 Last Admin: 05/30/19 22:18 Dose: 80 mls/hr Documented by: [id number] Infusion: 05/30/19 22:18 Dose: 80 mls/hr Documented by: [id number] Admin: 05/30/19 19:03 Dose: 80 mls/hr Documented by: [id number] Insulin Aspart (Novolog Flexpen) 0 units SC ACHS [facility] Stop: 06/29/19 20:59 Last Admin: 05/30/19 22:18 Dose: Not Given Documented by: [id number] Cosigned by: [id number] Simvastatin (Zocor) 40 mg PO QPM [facility] Stop: 06/29/19 21:41 Last Admin: 05/30/19 23:09 Dose: 40 mg Documented by: [id number] Vitamin D (Vitamin D3) 2,000 units PO QPM [facility] Stop: 06/29/19 21:41 Last Admin: 05/30/19 23:08 Dose: 2,000 units Documented by: [id number] Discontinued Medications Piperacillin Sod/Tazobactam Sod (Zosyn) 4.5 gm in 120 mls @ 30 mls/hr IV NOW ONE Stop: 05/30/19 19:58 Last Infusion: 05/30/19 19:25 Dose: 0 mls/hr Documented by: [id number] Admin: 05/30/19 16:38 Dose: 30 mls/hr Documented by: [id number] Sodium Chloride (Nss 1000ml) 2,000 mls @ 999 mls/hr IV .Q2H1M ONE Stop: 05/30/19 17:58 Last Infusion: 05/30/19 19:04 Dose: 0 mls/hr Documented by: [id number] Admin: 05/30/19 16:38 Dose: 999 mls/hr Documented by: [id number] Vancomycin HCl 1,250 mg/ (Sodium Chloride) 525 mls @ 200 mls/hr IV NOW ONE; Protocol Stop: 05/30/19 18:35 Last Infusion: 05/30/19 19:53 Dose: 0 mls/hr Documented by: [id number] Admin: 05/30/19 16:38 Dose: 200 mls/hr Documented by: [id number] Acetaminophen (Ofirmev) 1,000 mg in 100 mls @ 400 mls/hr IV NOW STA Stop: 05/30/19 16:12 Last Infusion: 05/30/19 16:59 Dose: 0 mls/hr Documented by: [id number] Admin: 05/30/19 16:38 Dose: 400 mls/hr Documented by: [id number] Hydrocortisone Sodium (Succinate 50 mg/ Syringe) 1 mls @ 4 mls/min IV 2000 [facility] Stop: 05/30/19 20:01 Last Admin: 05/30/19 19:52 Dose: 4 mls/min Documented by: [id number] Piperacillin Sod/Tazobactam (Sod 3.375 gm/ Dextrose) 115 mls @ 230 mls/hr IV TODAY@0000 [facility]; Protocol Stop: 05/31/19 00:29 Last Infusion: 05/31/19 02:09 Dose: 0 mls/hr Documented by: [id number] Admin: 05/31/19 00:48 Dose: 230 mls/hr Documented by: [id number] Medical Decision Making Differential Diagnosis Differential diagnosis includes: viral syndrome, otitis, pharyngitis, pneumonia, influenza, meningitis, urinary tract infection, sepsis, bacteremia, as well as others were entertained. Medical Records Attestation: I reviewed the patient's medical records. Home Medications Current Medication List: was personally reviewed by me Laboratory Data Attestation: I reviewed the patient's lab results. Result diagrams: 05/30/19 16:09 05/30/19 16:09 Lab Results 05/30/19 05/30/19 05/30/19 Range/Units 16:09 16:09 16:09 WBC 16.70 H (4.8-10.8) K/uL RBC 3.74 L (4.7-6.1) M/uL Hgb 12.1 L (14.0-18.0) g/dL Hct 37.5 L (42-52) % MCV 100.3 H (80-100) fL MCH 32.4 (25-34) pg MCHC 32.3 (32-36) g/dL RDW Std Deviation 54.0 H (36.4-46.3) fL RDW Coeff of Miryam 14.9 H (11.5-14.5) % Plt Count 152 (130-400) K/uL MPV 10.2 (7.4-10.4) fL Immature Gran % (Auto) 0.2 % Neut % (Auto) 73.2 % Lymph % (Auto) 16.6 % [place] % (Auto) 8.9 % Eos % (Auto) 0.9 % Baso % (Auto) 0.2 % Immature Gran # (Auto) 0.04 H (0.00-0.02) K/uL Neut # (Auto) 12.21 H (1.4-6.5) K/uL Lymph # (Auto) 2.78 (1.2-3.4) K/uL [place] # (Auto) 1.49 H (0.11-0.59) K/uL Eos # (Auto) 0.15 (0-0.5) K/uL Baso # (Auto) 0.03 (0-0.2) K/uL PT 10.6 (9.0-12.0) Seconds INR 1.0 (0.9-1.1) APTT 27.9 (21.0-31.0) Seconds PTT Ratio 1.0 Sodium 137 (136-145) mmol/L Potassium 4.6 (3.5-5.1) mmol/L Chloride 101 (98-107) mmol/L Carbon Dioxide 29 (21-32) mmol/L Anion Gap 7.0 (3-11) BUN 26 H (7-18) mg/dl Creatinine 1.56 H (0.6-1.4) mg/dl Est Cr Clr Drug Dosing 33.0 ml/min Est GFR ( Amer) 47.2 Est GFR (Non-Af Amer) 40.8 BUN/Creatinine Ratio 16.5 (10-20) Glucose 121 H (70-99) mg/dl Lactate (0.4-2.0) mmol/L Calcium 9.7 (8.5-10.1) mg/dl Phosphorus 3.0 (2.5-4.9) mg/dl Magnesium 2.0 (1.8-2.4) mg/dl Total Bilirubin 0.4 (0.2-1) mg/dl Direct Bilirubin 0.1 (0-0.2) mg/dl AST 10 L (15-37) U/L ALT 12 (12-78) U/L Alkaline Phosphatase 56 (45-117) U/L Troponin I < 0.015 (0-0.045) ng/ml Total Protein 8.1 (6.4-8.2) gm/dl Albumin 3.2 L (3.4-5.0) gm/dl Globulin 4.9 H (2.5-4.0) gm/dl Albumin/Globulin Ratio 0.6 L (0.9-2) 07/25/19 Range/Units 16:09 WBC (4.8-10.8) K/uL RBC (4.7-6.1) M/uL Hgb (14.0-18.0) g/dL Hct (42-52) % MCV (80-100) fL MCH (25-34) pg MCHC (32-36) g/dL RDW Std Deviation (36.4-46.3) fL RDW Coeff of Miryam (11.5-14.5) % Plt Count (130-400) K/uL MPV (7.4-10.4) fL Immature Gran % (Auto) % Neut % (Auto) % Lymph % (Auto) % [place] % (Auto) % Eos % (Auto) % Baso % (Auto) % Immature Gran # (Auto) (0.00-0.02) K/uL Neut # (Auto) (1.4-6.5) K/uL Lymph # (Auto) (1.2-3.4) K/uL [place] # (Auto) (0.11-0.59) K/uL Eos # (Auto) (0-0.5) K/uL Baso # (Auto) (0-0.2) K/uL PT (9.0-12.0) Seconds INR (0.9-1.1) APTT (21.0-31.0) Seconds PTT Ratio Sodium (136-145) mmol/L Potassium (3.5-5.1) mmol/L Chloride (98-107) mmol/L Carbon Dioxide (21-32) mmol/L Anion Gap (3-11) BUN (7-18) mg/dl Creatinine (0.6-1.4) mg/dl Est Cr Clr Drug Dosing ml/min Est GFR ( Amer) Est GFR (Non-Af Amer) BUN/Creatinine Ratio (10-20) Glucose (70-99) mg/dl Lactate 1.6 (0.4-2.0) mmol/L Calcium (8.5-10.1) mg/dl Phosphorus (2.5-4.9) mg/dl Magnesium (1.8-2.4) mg/dl Total Bilirubin (0.2-1) mg/dl Direct Bilirubin (0-0.2) mg/dl AST (15-37) U/L ALT (12-78) U/L Alkaline Phosphatase (45-117) U/L Troponin I (0-0.045) ng/ml Total Protein (6.4-8.2) gm/dl Albumin (3.4-5.0) gm/dl Globulin (2.5-4.0) gm/dl Albumin/Globulin Ratio (0.9-2) Imaging Data Radiologist's Impression: Radiology results as stated below per my review and the radiologist's interpretation: XR chest 1V portable CLINICAL HISTORY: Sepsis dyspnea COMPARISON STUDY: 11/26/2018 FINDINGS: Stable postoperative changes right hemithorax. Resection of several ribs which has been present previously. Central catheter in the right atrium. Lungs otherwise appear clear. There are no focal infiltrative changes. IMPRESSION: Chronic and postoperative change. No acute process. The above report was generated using voice recognition software. It may contain grammatical, syntax or spelling errors. Electronically signed by: Frankie Page M.D. 05/30/2019 4:[address] SCAN OF THE NECK WITHOUT IV CONTRAST CLINICAL HISTORY: Sepsis. Periodontal infection. COMPARISON STUDY: PET/CT dated 09/19/2018. TECHNIQUE: CT scan of the soft tissues of the neck was performed from the skull base to the upper chest. Images are reviewed in the axial, sagittal, and coronal planes. IV contrast was not administered as per the referring clinician. Note that the examination was performed in significantly suboptimal fashion without IV contrast. A dose lowering technique was utilized adhering to the principles of ALARA. CT DOSE: 407.26 mGy.cm FINDINGS: Pharynx: The unenhanced pharyngeal soft tissues are grossly normal in appearance. The pharyngeal airway is patent. There is no evidence of mass lesion. The vocal cords are symmetric. The parapharyngeal fat is well maintained. The prevertebral/retropharyngeal soft tissues are within normal limi ts. The epiglottis is normal. Circumferential wall thickening is suggested in the esophagus. Dentition: Evaluation of the oral cavity is significantly degraded by streak artifact from dental amalgam. There is a large lucency identified involving the socket of a left mandibular molar with overlying cortical breakthrough. There is mild surrounding inflammatory change. A large dental raphael is identified involving the most posterior left maxillary molar (axial image #183). This is partially impacted within the left maxillary antrum. There is no evidence of organized fluid collection on this unenhanced examination. Soft tissues: There is advanced atherosclerotic calcification of the carotid bul bs. A right subclavian central venous infusion port is noted. Lymphadenopathy: No cervical lymphadenopathy is seen Thyroid: Normal in size and attenuation. Salivary glands: The parotid and submandibular glands are within normal limits. Brain parenchyma: There is age-related involutional change noting subcortical and periventricular microangiopathic disease. Orbits: The bony orbits are intact. Orbital contents are normal in appearance noting bilateral ocular lens implants. Skeletal structures: The skeletal structures are osteopenic. Imaged portions of the calvarium at the skull base are within normal limits. The cervical spine appears intact noting multilevel spondylosis. No lytic or blastic lesion is identified. Sinuses and mastoids: Trace fluid is noted within the left maxillary antrum. The remaining nasal sinuses are clear. The mastoid air cells are well pneumatized. Lung apices: Emphysematous change is noted in the upper lobes. Volume loss in the right lung suggests previous surgical resection.. IMPRESSION: 1. Suboptimal examination without IV contrast. 2. There is a large lucency identified involving the socket of the most posterior left mandibular molar with cortical breakthrough and mild surrounding inflammation. 3. There is a large dental raphael identified within most posterior left maxillary molar which is partially impacted. Follow-up with dentistry is recommended. 4. Emphysema. Electronically signed by: Ulises Arrieta M.D. 05/30/2019 5:55 PM ECG Data Attestation: I personally reviewed and interpreted this ECG as follows: Indication: nausea Rate (beats per minute): 70 Rhythm: sinus rhythm Findings: + other (left axis deviation), + 1st degree AV block and + RBBB; no acute ischemic change Comparison ECG Date: from (11/23/18) Change: no significant change Blood Pressure Blood Pressure Findings: Low blood pressure Blood Pressure Disposition: further management by hospitalist KENZIE Narrative The patient is a pleasant 84-year-old gentleman with a past medical history of rheumatoid arthritis on Remicade as well as chronic prednisone, CKD, DM, lung resection who presents emergency department with feverishness and chills in the setting of having a tooth extraction last week with subsequent diagnosis of dry socket yesterday per hpi. On arrival patient is uncomfortable appearing but no acute distress, Temp 37.8 with BP 80s/50s but mentating normally, heart rate in the 100s. Given the patient's immune compromised status given he is on Remicade and chronic prednisone patient was managed for sepsis and treated empirically with broad-spectrum antibiotics with Zosyn and vancomycin. EKG unremarkable without evidence of acute ischemia. CXR negative for pna. WBC 16 increased from prior. H/H 12.1/37.5 improved from last month. Platelets wnl. Lactate within normal limits. Chemistry without acidosis. Cr. 1.5 within baseline range. LFTs unremarkable. Troponin negative. CT of the neck ordered for further evaluation of possible source however no submandibular swelling to suggest abscess or Henry's at this time. UA with possible infection with LE 1+, WBC 10-30, bacteria 1+. Case was discussed with Dr. Banuelos, [facility] hospitalist, who evaluate the patient for admission. CT subsequently demonstrates, "large lucency identified involving the socket of the most posterior left mandibular molar with cortical breakthrough and mild surrounding inflammation" and "a large dental raphael ... posterior left maxillary molar which is partially impacted." Impression & Plan Sepsis, CKD (chronic kidney disease), Leukocytosis, Dry socket, Acute UTI (urinary tract infection) Critical Care Time Critical Care Time: Yes Total Critical Care Time: 60 I have personally spent 60 minutes of critical care time in the direct management of this patient. This includes bedside care, interpretation of diagnostic studies, and testing, discussion with consultants, patient, and family members, and other required patient management activities. This 60 minutes is in excess of all separately billable procedures. Discharge Plan Visit Data *Final* Discharge Date/Time: 05/30/19 20:38 Chief Complaint: Dizziness Stated Complaint: DIZZINESS,CHILLS, TOOTH PULLED DRY SOCKET ED Provider: Trino Oden Discharge Problem: Sepsis, CKD (chronic kidney disease), Leukocytosis, Dry socket, Acute UTI (urinary tract infection) Patient Disposition: Admitted As Inpatient Discharge Instructions Interventions: ED Discharge Assessment Last Done: 05/30/19 20:38 Discharge Problem: Sepsis Qualifiers: Sepsis type: sepsis due to unspecified organism Qualified Code(s): A41.9 - Sepsis, unspecified organism CKD (chronic kidney disease) Qualifiers: Chronic kidney disease stage: unspecified stage Qualified Code(s): N18.9 - Chronic kidney disease, unspecified Leukocytosis Qualifiers: Leukocytosis type: unspecified Qualified Code(s): D72.829 - Elevated white blood cell count, unspecified The scribe's documentation has been prepared under my direction and personally reviewed by me in its entirety. I confirm that the note above accurately reflects all work, treatment, procedures, and medical decision making performed by me.
[2019-05-30 20:58] LABS: Appearance Urine Clear (Clear); Bacteria Urine Automated 1+ (Negative); Bilirubin Urine Negative (Negative); Blood Urine Negative (Negative); Color Urine Yellow; Epithelial Cell Urine Auto 0-5 /lpf (0-5); Glucose Urine UA Negative (Negative); Ketones Urine Negative (Negative); Leukocyte Esterase Urine 1+ (Negative); Nitrite Urine Negative (Negative); Protein Urine Negative (Negative); RBC Urine Automated 0-4 /hpf (0-4); Specific Gravity Urine 1.015 (1.000-1.030); Urobilinogen Urine Negative (Negative)
[2019-05-30] MEDS ORDERED: DEXTROSE 50% 50 ML SYRINGE IV PRN (21:00)
[2019-05-30] MEDS ORDERED: GLUCOSE 10 TABS/TUBE PO PRN (21:00)
[2019-05-30] MEDS ORDERED: GLUCOSE 40% GEL 15 GM TUBE PO PRN (21:00)
[2019-05-30] MEDS ORDERED: CARBOHYDRATES FOR HYPOGLYCEMIA PO PRN (21:00)
[2019-05-30] MEDS ORDERED: GLUCAGON FOR INJ 1 MG VIAL IM PRN (21:00)
[2019-05-30] MEDS ORDERED: CHOLECALCIFEROL 1,000 UNITS TAB PO SCH (21:42)
[2019-05-30] MEDS ORDERED: ALBUTEROL HFA 8 GM INHALER INH PRN (21:42)
[2019-05-30] MEDS ORDERED: GABAPENTIN 300 MG CAP PO SCH (21:42)
[2019-05-30] MEDS ORDERED: ACETAMINOPHEN 500 MG TAB PO PRN (21:42)
[2019-05-30] MEDS ORDERED: SIMVASTATIN 40 MG TAB PO SCH (21:42)
[2019-05-30] MEDS ORDERED: ASPIRIN 81 MG ECTAB PO SCH (21:42)
[2019-05-30] MEDS: INSULIN ASPART 100 UNITS/ML 3 ML PEN SC SCH (22:18)
[2019-05-30] MEDS: HEPARIN SOD 5,000 UNIT/0.5 ML VIAL SQ SCH (22:18)
[2019-05-30] MEDS ORDERED: HEPARIN 100 UNIT/ML 5ML FLUSH FLUSH PRN (22:57)
[2019-05-30] MEDS: OMEGA-3 (PURIFIED FISH OIL) 1 GM CAP PO SCH (23:08)
[2019-05-31] MEDS ORDERED: PIPERACILLIN/TAZOBACTAM 3.375 GM in DEXTROSE 5% 100 ML IV SCH
[2019-05-31] MEDS ORDERED: PIPERACILL/TAZOBAC CONSULT ACTIVE PRN (00:02)
[2019-05-31] MEDS: SODIUM CHLORIDE 0.9% 500 ML IV SCH ×2 (04:41→12:06)
[2019-05-31] MEDS: PIPERACILLIN/TAZOBACTAM 3.375 GM in DEXTROSE 5% 100 ML IV SCH ×2 (06:05→15:03)
[2019-05-31 06:37] LABS: Basophils # (auto) 0.01 K/uL (0-0.2); Basophils % (auto) 0.1 %; Eosinophils # (auto) 0.05 K/uL (0-0.5); Eosinophils % (auto) 0.5 %; Hematocrit (blood only) 29.5 % (42-52); Hemoglobin 9.4 g/dL (14.0-18.0); Immature Granulocytes # (auto) 0.03 K/uL (0.00-0.02); Immature Granulocytes % (auto) 0.3 %; Lymphocytes # (auto) 2.18 K/uL (1.2-3.4); Lymphocytes % (auto) 20.1 %; Mean Corpuscular Hgb Conc 31.9 g/dL (32-36); Mean Corpuscular Volume 99.3 fL (80-100); Mean Platelet Volume 10.5 fL (7.4-10.4); Monocytes # (auto) 0.73 K/uL (0.11-0.59); Monocytes % (auto) 6.7 %; Neutrophils # (auto) 7.86 K/uL (1.4-6.5); Neutrophils % (auto) 72.3 %; Platelet Count 127 K/uL (130-400); RDW Standard Deviation 53.8 fL (36.4-46.3); Red Blood Count 2.97 M/uL (4.7-6.1); White Blood Count 10.86 K/uL (4.8-10.8)
[2019-05-31 07:25] LABS: Albumin Level 2.4 gm/dl (3.4-5.0); Calcium 8.2 mg/dl (8.5-10.1); Creatinine Clr Calc Pharmacy 38.1 ml/min; Est GFR (African American) 52.5; Est GFR (Non-African American) 45.3; Potassium 3.8 mmol/L (3.5-5.1)
[2019-05-31 07:29] LABS: Albumin Globulin Ratio 0.6 (0.9-2); Bilirubin,Total 0.3 mg/dl (0.2-1); Globulin 3.9 gm/dl (2.5-4.0); Total Protein 6.3 gm/dl (6.4-8.2)
[2019-05-31] MEDS ORDERED: HYDROCORTISONE SOD 50 MG in SYRINGE 0 ML IV SCH (08:00)
[2019-05-31] MEDS: OMEGA-3 (PURIFIED FISH OIL) 1 GM CAP PO SCH (08:59)
[2019-05-31] MEDS: HEPARIN SOD 5,000 UNIT/0.5 ML VIAL SQ SCH (09:00)
[2019-05-31] MEDS: INSULIN ASPART 100 UNITS/ML 3 ML PEN SC SCH ×2 (09:00→12:54)
[2019-05-31] MEDS ORDERED: FOLIC ACID 400 MCG TAB PO SCH (09:00)
[2019-05-31] MEDS ORDERED: CALCIUM 600MG + VIT D 400 IU TAB PO SCH (09:00)
[2019-05-31] MEDS ORDERED: ALLOPURINOL 300 MG TAB PO SCH (09:00)
[2019-05-31] MEDS ORDERED: GABAPENTIN 300 MG CAP PO SCH (09:00)
[2019-05-31] MEDS ORDERED: MULTIVITAMIN TAB PO SCH (09:00)
[2019-05-31] MEDS ORDERED: DOCUSATE SODIUM 100 MG CAP PO SCH (09:00)
--- NOTE | 2019-05-31 15:27 | Discharge Summary ---
Date of Service May 31, 2019 Admission HPI Per Admitting Provider Pt is an 84yo gentleman with a PMHx of AR, CAD s/p stent placement, squamous cell carcinoma s/p chemotherapy which ended 2 months ago and rheumatoid arthritis currently being treated with Remicade who presents with sepsis likely secondary to a tooth infection. States he had the tooth removed about a week ago and has had consistent pain since then. Has gone back to the dentist and was told that he has a "dry socket". Has been unable to eat because of the tooth pain. 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 States he was having fevers, chills and sweats at home associated with dizziness whenever he got up. That has been going on for the past day. PMHx: AR, coronary and carotid artery disease, squamous cell carcinoma, bladder cancer, rheumatoid arthritis, neuropathy, DMII, CKD. PSH: Stent placement, SCC resection, bladder cancer resection. Social Hx: Lives at home with his . Uses a walker to ambulate and able to perform ADLs before this. Meds: As listed below. Allergies: Metformin, states he gets diarrhea Admission Exam Per Admitting Provider Constitutional: + frail appearing Eyes: PERRL, conjunctivae normal, anicteric sclerae ENMT: Mouth / Teeth: document embedded image 1. Mouth with opening in this spot; no signs of erythema or drainage; no fluctuant mass noted Neck: no anterior neck swelling Respiratory: normal respiratory effort, lungs clear to auscultation Cardiovascular: RRR, no murmur, no edema Gastrointestinal (Abdomen): Inspection/Auscultation: + scaphoid Percussion/Palpation: abdomen soft; abdomen nontender, no guarding and no hepatosplenomegaly Skin: no rashes, warm and dry Neurologic: PERRL, EOMI, accommodation nl, no face palsy, no dysarthria Psychiatric: A+Ox3, euthymic affect Principal Diagnosis Weakness Discharge Exam Constitutional well developed, well nourished and cooperative Eyes + anicteric sclerae ENMT Mouth: + dentition abnormality patient tender to palpation over site of recently excised too (left, lower mouth) with surround oral mucosa erythema (correlates to neck CT image report) Neck no anterior neck swelling No Cervical LAD Respiratory normal respiratory effort, lungs clear to auscultation diminished breath sounds R lower lobe (consistent with site of prior lung cancer) Cardiovascular RRR, no murmur, no edema Heart Sounds: normal S1 and normal S2; no gallop, no murmur and no cardiac rub Gastrointestinal (Abdomen) normal bowel sounds, soft, nontender, no hepatosplenomegaly Inspection/Auscultation: abdomen normal to inspection; abdomen not distended Neurologic awake Psychiatric Orientation: alert and oriented x 3 Discharge Data Allergies Allergy/AdvReac Type Severity Reaction Status Date / Time metformin [From Glucophage] AdvReac Intermediate Diarrhea Verified 05/30/19 16:32 Consultations 05/30/19 17:25 ED Decision to Admit Stat Ordered Studies 05/30/19 17:13 CT soft tissue neck wo con Stat Hospital Course (1) Dental infection: Pt is an 84yo gentleman with a PMHx of AR, CAD s/p stent placement, squamous cell carcinoma s/p chemotherapy which ended 2 months ago and rheumatoid arthritis currently being treated with Remicade and prednisone who presents with L lower mouth pain and symptoms concerning for systemic infection. Patient had a tooth removed last week and has had pain at the site of extraction since - when re-evaluated by his dentist earlier this week he was told he had a "dry socket" with no signs of infection. On admission, he did have an elevated WBC count to 16, was tachycardic, but afebrile. Soft tissue CT of neck showed no evidence of odontogenic abscess or anterior neck swelling; it was remarkable only for some oral inflammation and dental caries. CXR failed to show evidence of PNA. Preliminary blood cultures were negative (2/2). There was some initial concern for sepsis at presentation, for which the patient was started on IV vancomycin and Zosyn. However, after review of clinical findings, patient did not meet sepsis criteria, and infection seemed to be localized site of recent tooth extraction. Vancomycin and zosyn were discontinued and patient was sent home with script for 9 day coure of oral augmentin. Patient was advised to follow up with dentist early next week. (2) Asymptomatic bacteriuria: -UA on admission was mildly positive (leuk esterase +1). -Urine culture grew out gram + cocci -patient is asymptomatic and given his history of BPH, likely asymptomatic bacteruria - thus treatment was not initiated. (3) Dental caries: -visualized on soft tissue CT of neck -recommend follow up with dentist as outpatient (4) Leukocytosis: -WBC count elevated to 16 on admission -down to 10 on day of discharge -likely secondary to dental infection (5) CKD (chronic kidney disease): -maintenance fluids set at gentle rate (80mls/hr) -Cr 1.56 on admission, down to 1.46 on day of discharge (05-31-19) -baseline Cr appears to be near 1.40 (6) Rheumatoid arthritis: -home meds include Remicade and prednisone -held in evaluation of possible systemic infection -ordered stress dose of IV hydrocortisone 50mg q12hr (7) Arthritis: (8) Neuropathy: continue gabapentin (9) Type II diabetes mellitus: -Hold home Januvia -ISS (10) Myocardial infarction: -continue home aspirin, statin -metoprolol held as patient hypotensive on admission. -restart metoprolol on discharge (11) Hypotension: -Pt initially thought to be in septic shock in ED, as BP was 88/58 -was given fluid bolus in the ED followed by normal saline at 80 mls/hr as maintenance fluids -home dose of metoprolol was held -hypotension resolved as BP increased throughout hospital stay -BP 161/77 on discharge (12) Hx of cancer of lung: -completed chemotherapy 2 months ago -continue albuterol prn (13) Hx of gout: -continue home dose allopurinol (14) Hx of constipation: -continue home dose docusate sodium Total Time Total Time Spent Total Time Spent (In Minutes): Less than 30 Supervising Physician Co-Signing Physician Notes I personally examined the patient and verified all huggins points of history and exam, discussed case, and agree with decision making with Dr Deluna. Feeling much better. Would like to go home. Absolutely no urinary symptom better. Believes he will have no difficulty following up with his dentist next week. Vitals noted, in general he is awake and alert pleasant no distress. He has an open socket in his mouth where he had the extraction there is no obvious exudate surrounding erythema or surrounding swelling. No focal neuro deficits. Skin shows no rashes no pallor or icterus. Dental infectionseems to have improved dramatically on antibiotics. For clarification sake while it appears that he did meet Sirs criteria in the ER he more than likely affected rather than truly septic given the apparent fairly local nature of his dental infection. He appears quite stable for discharge on Augmentin and will follow up with his dentist next week for more definitive treatment if it is still required at that time. He had no urinary symptoms, so his UA and culture are more than likely contaminant Otherwise as above, stable for home. Resident Activity Tracking Resident Involvement: Resident Care Provided Care Provided: Adult [facility]
[2019-05-31] MEDS ORDERED: HEPARIN SOD 5,000 UNIT/0.5 ML VIAL SQ SCH (21:00)
== END 2019-05-31 18:01 | disposition home or self-care (01) | DRG 159 ==
LOC: ED 15:12 → SUATTDRO 19:13 → 2N 19:13

== ENCOUNTER 2019-09-12 13:35 | Inpatient (IN) ==
[2019-09-12] MEDS ORDERED: NITROGLYCERIN SL 0.4 MG/TAB TAB SL PRN (14:18)
[2019-09-12] MEDS ORDERED: ALBUT/IPRATROP 3MG/0.5MG NEB 3 ML VIAL INH STA (14:32)
[2019-09-12] MEDS ORDERED: HYDROmorphone INJ 0.5 MG/0.5 ML SYR IV PRN ×2 (14:52→20:12)
[2019-09-12] MEDS ORDERED: ACETAMINOPHEN 1,000 MG/100 ML VIAL IV STA (14:52)
[2019-09-12] MEDS ORDERED: ONDANSETRON HCL 8 MG/54 ML BAG IV STA (14:52)
[2019-09-12 15:11] LABS: Basophils # (auto) 0.02 K/uL (0-0.2); Basophils % (auto) 0.2 %; Eosinophils % (auto) 3.3 %; Hematocrit (blood only) 28.6 % (42-52); Hemoglobin 9.1 g/dL (14.0-18.0); Immature Granulocytes # (auto) 0.06 K/uL (0.00-0.02); Immature Granulocytes % (auto) 0.5 %; Lymphocytes # (auto) 1.81 K/uL (1.2-3.4); Lymphocytes % (auto) 15.1 %; Mean Corpuscular Hemoglobin 30.2 pg (25-34); Mean Corpuscular Hgb Conc 31.8 g/dL (32-36); Monocytes # (auto) 0.68 K/uL (0.11-0.59); Monocytes % (auto) 5.7 %; Neutrophils # (auto) 9.05 K/uL (1.4-6.5); Neutrophils % (auto) 75.2 %; Platelet Count 251 K/uL (130-400); RDW Coefficient of Variation 15.2 % (11.5-14.5); RDW Standard Deviation 52.3 fL (36.4-46.3); Red Blood Count 3.01 M/uL (4.7-6.1); White Blood Count 12.02 K/uL (4.8-10.8)
[2019-09-12 15:13] LABS: iSTAT Creatinine 1.4 mg/dl (0.6-1.3); iSTAT Hemoglobin 8.8 g/dl (14.0-18.0); iSTAT Ionized Calcium 1.34 mmol/l (1.12-1.32)
--- NOTE | 2019-09-12 15:18 | Emergency Department Note ---
General (ED) Blank Date of Service September 12, 2019 I attest that I have seen and examined the patient and agree with the findings, assessment, and plan of Dr. Agosto. Please see his note for all findings and plan. Resident Activity Tracking Resident Involvement: Resident Care Provided Care Provided: Adult ED
[2019-09-12 15:21] LABS: INR 1.1 (0.9-1.1); Partial Thromboplastin Ratio 1.1; Prothrombin Time 11.6 Seconds (9.0-12.0)
--- NOTE | 2019-09-12 15:29 | CT Scan Report ---
CT head/brain wo con CLINICAL HISTORY: 84 years-old Male presenting with fall head trauma. TECHNIQUE: Multidetector CT imaging of the head was performed without the use of intravenous contrast . IV contrast: None. One or more dose lowering techniques were used consistent with the principles of ALARA (as low as reasonably achievable), including automatic exposure control, mA or kV adjustment t o individual patient size, and/or use of iterative reconstruction. COMPARISON: 10/26/2018. CT DOSE (mGy.cm): The estimated cumulative dose is 1124.21. FINDINGS: Creative Strategist topogram: Unremarkable. Proportional ventricular and sulcal prominence, likely age-related parenchymal volume loss. No hemorr ashley. Periventricular and subcortical white matter hypoattenuation, nonspecific but likely indicative of chronic small vessel ischemic change. No acute territorial infarct. No mass effect or midline john ft. No extra-axial fluid collection. Trace air-fluid level in the left maxillary sinus. Calvarium int act. Intracranial atherosclerosis noted. IMPRESSION: 1. Chronic small vessel ischemic change. No acute intracranial abnormality. Electronically signed by: Chacho England M.D. 09/12/2019 3:27 PM
[2019-09-12 15:33] LABS: Alanine Aminotransferase 19 U/L (12-78); Albumin Level 2.3 gm/dl (3.4-5.0); Aspartate Aminotransferase 24 U/L (15-37); BUN Creatinine Ratio 22.6 (10-20); Blood Urea Nitrogen 31 mg/dl (7-18); Calcium 10.2 mg/dl (8.5-10.1); Carbon Dioxide 27 mmol/L (21-32); Chloride 103 mmol/L (98-107); Creatinine Clr Calc Pharmacy 37.6 ml/min; Est GFR (African American) 54.3; Est GFR (Non-African American) 46.9; Glucose 150 mg/dl (70-99); Lipase 156 U/L (73-393); Sodium 135 mmol/L (136-145)
--- NOTE | 2019-09-12 15:34 | XRay Report ---
XR chest 1V portable CLINICAL HISTORY: 84 years-old Male presenting with Chest Pain. TECHNIQUE: Portable upright AP view of the chest was obtained. COMPARISON: 05/30/2019. FINDINGS: The patient is slightly FIJIAN rotated. Right subclavian Mediport terminates at the superior cavoatrial junction. Few mediastinal surgical clips noted. Atherosclerosis and prominence of the thoracic aorta. Cardiac silhouettes mildly enlarged as on prior. Mild elevation of the right hemidiaphragm with slig htly lower lung volume on the right in comparison to the left though the appearance is probably exagg erated due to FIJIAN rotation. Postsurgical changes of several posterior right ribs. A suture margin is noted in the lower right lung. Trace right pleural thickening or pleural effusion similar to prior. N o new focal opacity. No large effusion or pneumothorax. Degenerative changes of the spine. Possible o steopenia. Upper abdomen normal. IMPRESSION: 1. Postsurgical changes of the right lung. 2. No acute cardiopulmonary disease. 3. Mild cardiomegaly. No evidence of volume overload or congestive change. Electronically signed by: Chacho England M.D. 09/12/2019 3:33 PM
[2019-09-12] MEDS ORDERED: HYDROmorphone INJ 0.5 MG/0.5 ML SYR IV STA (15:36)
[2019-09-12 15:38] LABS: Albumin Globulin Ratio 0.5 (0.9-2); Alkaline Phosphatase 71 U/L (45-117); Bilirubin,Total 0.5 mg/dl (0.2-1); Creatine Kinase MB 1.6 ng/ml (0.5-3.6); Globulin 5.1 gm/dl (2.5-4.0); Total Protein 7.4 gm/dl (6.4-8.2); Troponin I 0.024 ng/ml (0-0.045)
--- NOTE | 2019-09-12 15:49 | CT Scan Report ---
CT ANGIOGRAM OF THE CHEST; CT SCAN OF THE THORACIC SPINE WITHOUT IV CONTRAST CLINICAL HISTORY: Dyspnea. Back pain. Lung cancer. COMPARISON STUDY: Chest CT scans dated 09/03/2018 and 07/05/2019. TECHNIQUE: Following the IV administration of 116 cc of Optiray 320, CT angiogram of the chest was pe rformed from the upper abdomen to the thoracic inlet utilizing the pulmonary embolus protocol. Additi onally, CT scan of the thoracic spine is performed from the lower cervical spine to the upper lumbar spine. Images for both examinations are reviewed in the axial, sagittal, and coronal planes. 3-D MIPS images are created and assessed. IV contrast was administered without complication. A dose lowering technique was utilized adhering to the principles of ALARA. CT DOSE: 1124.21 mGycm FINDINGS: Thyroid: Imaged portions of the thyroid gland are normal in size and attenuation. Thoracic aorta: There is atherosclerotic calcification of the thoracic aorta, which is normal in bennett shellie and demonstrates standard 3-vessel arch anatomy. No dissection is seen. Pulmonary vasculature: The pulmonary trunk is normal in caliber. There are no filling defects identif ied in main, lobar, or segmental pulmonary branches to suggest pulmonary embolus. Heart: A right internal jugular central venous infusion port is in place. The heart is enlarged and w ithout pericardial effusion. The coronary arteries are densely calcified. Lungs and pleural spaces: Emphysematous change is again noted. Again seen is postoperative change fro m right lower lobe resection. The trachea and central airways are clear. Pleural fluid and parenchyma l scarring are again seen at the right lung base. Patchy groundglass consolidation is seen at the rig ht lung base. There is a 3.7 x 2.8 centimeter lesion in the right lower lobe adjacent to the suture m argin seen on image #132. This has increased in size from 07/05/2019. There is abnormal soft tissue in the right paramediastinal and paravertebral region seen on images #219 (measuring approximately 3.5 x 1.5 cm) and #201 (measuring approximately 3 x 2 cm). There is a new subpleural lesion in the anteri or right lung seen on image #161. This measures 2.3 x 2.0 cm and has also increased in size from prev ious. There is compensatory hyperinflation of the left lung. Dependent patchy airspace consolidation is noted within the left lung. There is no left pleural effusion. Mediastinum: There are are mildly enlarged mediastinal lymph nodes. AP window nodes measure up to 12 mm in short axis. A subcarinal node measures 15 mm in short axis. Ambreen: Clear. Axillae: There is no axillary lymphadenopathy. Upper abdomen: Partially visualized upper abdominal viscera is within normal limits. Skeletal structures: The skeletal structures are osteopenic. See below for dedicated assessment of th e thoracic spine. No lytic or blastic bony lesions are seen. Several of the right posterior ribs are surgically absent. THORACIC SPINE: Vertebral body height and alignment are maintained throughout the thoracic spine. The re is no evidence of fracture or malalignment. Anterior and lateral marginal osteophytes are seen thr oughout. The transverse and spinous processes are intact. The disc spaces are preserved. There is mil d multilevel degenerative disc space narrowing. Posterior disc osteophyte complexes are seen at T9-T1 0, T10-T11, and T11-T12. There is no CT evidence of large disc herniation or high-grade central canal stenosis by CT. The paraspinous soft tissues are normal in appearance. IMPRESSION: 1. There is no evidence of pulmonary embolus in the main, lobar, or segmental pulmonary arteries. 2. Cardiomegaly, emphysema, and postoperative change from right lower lobe resection. 3. No acute bony abnormality is seen involving the thoracic spine. 4. There is patchy groundglass consolidation at the right lung base. Patchy consolidation is also see n dependently within the left lung. Correlate clinically for evidence of pneumonia/aspiration pneumon itis. 5. There is evidence of progressive metastatic disease throughout the right lung as compared to 2018 as detailed above. 6. Additional findings as above. Electronically signed by: Ulises Arrieta M.D. 09/12/2019 3:47 PM
[2019-09-12] MEDS ORDERED: PIPERACILL/TAZOBAC CONSULT ACTIVE PRN (16:07)
[2019-09-12] MEDS ORDERED: PIPERACILLIN/TAZOBACTAM 4.5 GM/120 ML BAG IV ONE (16:07)
[2019-09-12] MEDS ORDERED: LEVOFLOXACIN/D5W 750 MG/150 ML BAG IV SCH (16:15)
--- NOTE | 2019-09-12 16:58 | History & Physical Report ---
Date of Service September 12, 2019 Assessment & Plan (1) RLL pneumonia: -Admit to [facility] -WBC count equals 12.02, blood cultures x2, starting on vancomycin and Zosyn, blood pressure low on recheck with a reading of 77/44, 69/42 on subsequent check at bedside. Will start on IVF's, 250 mL bolus followed by NSS at 125 mL/h and monitor improvement -MRSA swab & sputum culture if expectorate producible -incentive spirometry, flutter, Mucinex, supportive therapy, O2 as needed -CT PE reviewed as above showing worsening progression of patient's cancer, possible dysphasia being caused by increasing size of paramediastinal metastasis. Speech evaluation ordered. Will allow diet for now as the patient reporting he is significantly hungry with aspiration precautions. -Consider thoracic surg if no improvement (2) Squamous cell carcinoma of lung, stage IV: - squamous cell lung carcinoma of the RLL, diagnosed Sep 2018, currently on chemotherapy with Keytruda for recurrence of his cancer, and follows with Dr. Ramirez. - EBUS was recommended, so was recently seen by Dr. Arcos on 08/05/19 where he was evaluated and it was decided that he would need a CT guided biopsy. The patient has not yet underwent CT-guided biopsy. -He has also been referred for palliative radiation to help with pain management. - Patient had his first round of Keytruda approximately 3 weeks ago, his next scheduled session is 09/18/2019. - Palliative consulted for support of goals of care. (3) Coronary artery disease: -Continue ASA daily. 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 (6) CKD (chronic kidney disease): -Creatinine 1.29, BUN 31, monitor with a.m. PRP -Started on heparin subcu with cancer history and sedentary lifestyle, CT PE completed as above, no evidence of acute pulmonary embolism (7) Rheumatoid arthritis: - History of being on Remicade, recently DC'd. - Continue on prednisone 5 mg HS (8) Type II diabetes mellitus: -Continue Januvia while inpatient, order ISS with [facility] -Last A1c was 7.3 in December 2018, recheck with a.m. labs (9) Myocardial infarction: -History of such (10) Neuropathy: -Noted, PT/OT consulted, continue gabapentin 900 p.o. HS (11) Sarcopenia: - Albumin 2.3 at time of admission. Recommend addition of boost supplementation for protein consumption in the setting of cancer and poor oral intake, can begin after GI and speech eval and nausea resolved (12) DVT prophylaxis: -Heparin subcu CODE STATUS: Full code, no heroic measures -Disco: Patient from home, likely to remain in the hospital for 1 to 2 days History of Present Illness Primary Care Provider: Chacho Beyer MD This is an 84 yo M with PMHx of squamous cell lung carcinoma of the RLL, diagnosed Sep 2018, currently on chemotherapy with Keytruda for recurrence of his cancer, and follows with Dr. Ramirez. A EBUS was recommended, so was recently seen by Dr. Arcos on 08/05/19 where he was evaluated and it was decided that he would need a CT guided biopsy. The patient has not yet underwent CT-guided biopsy. He has also been referred for palliative radiation to help with pain management. Patient had his first round of Keytruda approximately 3 weeks ago, his next scheduled session is 09/18/2019. Other PMHx includes RA, CKD, CAD, DM type II and history of [place]. He presents today with worsening shortness of breath. Patient notes that this is been going on for a few days. He reports dysphasia as well, feeling of food getting stuck in his esophagus, and has choked on this, and needs his to slap him on the back. He also notes that this has caused him to dry heaves/vomit several times within the past 2 days. He is unsure if he aspirated, but has not been able to eat or drink much at all today. He does typically not wear any supplemental O2. He has been having difficulty with minimal ADLs, walking, and sits most of the time. He reports his worst pain rated as an 8/10 is at the base of his spine and typically nothing alleviates this. He also reports a right upper abdomen/right rib cage sided pain which is constantly a 4/10, s/p lobectomy approximately 1 year ago. He denies any fevers or chills. Only at bedside patient's BP = 77/44, on repeat check and smaller cuff it is 69/42. Started on IVF NSS 250 mL bolus followed by 125 mL/h continuously WBC equal 12.02 Allergies Allergy/AdvReac Type Severity Reaction Status Date / Time metformin [From Glucophage] AdvReac Intermediate Diarrhea Verified 08/14/19 09:37 Home Medications Home Medications Medication Instructions Recorded Confirmed Type Calcium 600 + D(3) 1 tab PO QAM 09/03/18 09/12/19 History albuterol sulfate [ProAir HFA] 2 puff INHALATION Q6H PRN 09/03/18 09/12/19 History allopurinol 300 mg PO QAM 09/03/18 09/12/19 History aspirin [Aspir-81] 81 mg PO HS 09/03/18 09/12/19 History cholecalciferol (vitamin D3) 2,000 units PO HS 09/03/18 09/12/19 History folic acid 400 mcg PO QAM 09/03/18 09/12/19 History metoprolol tartrate 25 mg PO BID 09/03/18 09/12/19 History multivitamin [Multiple Vitamins] 1 tab PO QAM 09/03/18 09/12/19 History omega-3 fatty acids-fish oil [Fish 1 cap PO BID 09/03/18 09/12/19 History Oil] prednisone 5 mg PO HS 09/03/18 09/12/19 History acetaminophen [Tylenol Extra 1,000 mg PO Q6H PRN 11/07/18 09/12/19 History Strength] docusate sodium 100 mg PO BID 05/30/19 09/12/19 History simvastatin 40 mg PO HS 05/30/19 09/12/19 History gabapentin 300 mg capsule 900 mg PO HS cap 06/11/19 09/12/19 History lidocaine [Lidoderm] 1 patch TOPICAL DAILY PRN 08/14/19 09/12/19 History pembrolizumab [Keytruda] 0 mg IV UD 09/12/19 09/12/19 History sitagliptin [Januvia] 100 mg PO QAM 09/12/19 09/12/19 History Past Med/Surg History Medical History 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 MIN monitoring - reports no surgical intervention needed at present time Chronic obstructive pulmonary disease Coronary artery disease Deep vein thrombosis > 30 years ago - treated - LEG UNKNOWN CAUSE Dizziness HAVING SOME DIZZY EPISODES AND HAD FALLEN AND HAD STITCHES IN HAND AND WAS REMOVED 11/07/18 Gout Hyperlipidemia Hypertension Lung cancer S/P R Thoracoscopy and R Lower Lobectomy with portion of [address] Arcos 10/09/18 Surgical History History of arthroscopy (Acute) LEFT SHOULDER History of heart artery stent (Acute) 1999 ONE STENT, [address] FOLLOWS WITH DR MIN History of Mohs micrographic surgery for skin cancer History of cardiac cath x 3 1999 - cp - 1 stent placed - [facility] - follows w/ dr. lozada 03/2002 - [place] - 1 stent placed - [facility] 06/2002 - reason? - 1 stent placed - [facility] History of cataract surgery RIGHT AND LEFT History of lobectomy of lung RIGHT LUNG AND THOROSCOPY History of surgery TRANSURETHRAL RESECTION OF BLADDER TUMOR Hx of colonoscopy Family History Mother Diabetes Other No significant family history Social History Preferred Language: Bangladeshi Communication Ability: Effective Visual Impairment: No Limitations Hearing Ability: Normal Auto Body Detailer Required: No Beliefs That Will Affect Care: None marital status: Current Living Situation: Spouse Current Living Situation Comment: and granddaughter and great grandchildren current occupational status: retired Feels Safe at Home: Yes Smoking Status: Smoker, status unknown Hx Alcohol Use: Yes Alcohol type: hard liquor Hx Substance Use: No ("getting a card for marijuana") Childhood Exposure to Second-Hand Smoke: Yes Dental Care, Regularly: Yes Physical Activity Frequency: 1-2 Times per Week Seatbelt Use: always Sunscreen Use: No Review of Systems Review of Systems: Constitutional: No fever, sweats or chills Eyes: No diplopia, no worsening or blurred vision ENT: normal hearing, + trouble swallowing where he has choked and vomited Respiratory: +cough, no sputum, +dyspnea with minimal ADLs Cardiovascular: No chest pain, tightness or palpitations Abdomen: As per HPI, +nausea, +vomiting, no diarrhea or constipation Musculoskeletal: No joint pain, calf pain, swelling Neurologic: + generalized weakness, no numbness/tingling. Psychiatric: No anxiety or depression Skin: No rash or itch Physical Exam Physical Exam: General: awake, alert, no apparent distress, + generalized muscle wasting Head: Normocephalic, atraumatic ENT: PERRL, EOMI, no pharyngeal exudate, mucous membranes very dry Chest: Clear to auscultation, on room air, no adventitious breath sounds Cardiac: Regular rate and rhythm, no murmur, no JVD, normal peripheral pulses, good capillary refill Abdominal: NABS x 4 quadrants, soft, nontender to palpation, no rebound, guarding or tenderness Extremities: Normal inspection, no peripheral edema or erythema, calfs nontender to palpation Psych: Normal mood and affect Neuro: AAO x 3, no gross motor deficits, speech is clear, no peripheral sensory deficits Results & Data Vital Signs (Past 12 Hours) Vital Signs Temp Pulse Pulse Resp BP Pulse Ox 09/12/19 14:48 72 17 97 09/12/19 14:18 99 09/12/19 13:24 36.9 C 78 19 149/64 H 99 Diagnostic Findings XR chest 1V portable CLINICAL HISTORY: 84 years-old Male presenting with Chest Pain. TECHNIQUE: Portable upright AP view of the chest was obtained. COMPARISON: 05/30/2019. FINDINGS: The patient is slightly HUNGARIAN rotated. Right subclavian Mediport terminates at the superior cavoatrial junction. Few mediastinal surgical clips noted. Atherosclerosis and prominence of the thoracic aorta. Cardiac silhouettes mildly enlarged as on prior. Mild elevation of the right hemidiaphragm with slightly lower lung volume on the right in comparison to the left though the appearance is probably exaggerated due to HUNGARIAN rotation. Postsurgical changes of several posterior right ribs. A suture margin is noted in the lower right lung. Trace right pleural thickening or pleural effusion similar to prior. No new focal opacity. No large effusion or pneumothorax. Degenerative changes of the spine. Possible osteopenia. Upper abdomen normal. IMPRESSION: 1. Postsurgical changes of the right lung. 2. No acute cardiopulmonary disease. 3. Mild cardiomegaly. No evidence of volume overload or congestive change. CT ANGIOGRAM OF THE CHEST; CT SCAN OF THE THORACIC SPINE WITHOUT IV CONTRAST CLINICAL HISTORY: Dyspnea. Back pain. Lung cancer. COMPARISON STUDY: Chest CT scans dated 09/03/2018 and 07/05/2019. TECHNIQUE: Following the IV administration of 116 cc of Optiray 320, CT angiogram of the chest was performed from the upper abdomen to the thoracic inlet utilizing the pulmonary embolus protocol. Additionally, CT scan of the thoracic spine is performed from the lower cervical spine to the upper lumbar spine. Images for both examinations are reviewed in the axial, sagittal, and coronal planes. 3-D MIPS images are created and assessed. IV contrast was administered without complication. A dose lowering technique was utilized adhering to the principles of ALARA. CT DOSE: 1124.21 mGycm FINDINGS: Thyroid: Imaged portions of the thyroid gland are normal in size and attenuation. Thoracic aorta: There is atherosclerotic calcification of the thoracic aorta, which is normal in caliber and demonstrates standard 3-vessel arch anatomy. No dissection is seen. Pulmonary vasculature: The pulmonary trunk is normal in caliber. There are no fi lling defects identified in main, lobar, or segmental pulmonary branches to suggest pulmonary embolus. Heart: A right internal jugular central venous infusion port is in place. The heart is enlarged and without pericardial effusion. The coronary arteries are densely calcified. Lungs and pleural spaces: Emphysematous change is again noted. Again seen is postoperative change from right lower lobe resection. The trachea and central airways are clear. Pleural fluid and parenchymal scarring are again seen at the right lung base. Patchy groundglass consolidation is seen at the right lung base. There is a 3.7 x 2.8 centimeter lesion in the right lower lobe adjacent to the suture margin seen on image #132. This has increased in size from 07/05/2019. There is abnormal soft tissue in the right paramediastinal and paravertebral region seen on images #219 (measuring approximately 3.5 x 1.5 cm) and #201 (measuring approximately 3 x 2 cm). There is a new subpleural lesion in the anterior right lung seen on image #161. This measures 2.3 x 2.0 cm and has also increased in size from previous. There is compensatory hyperinflation of the left lung. Dependent patchy airspace consolidation is noted within the left lung. There is no left pleural effusion. Mediastinum: There are are mildly enlarged mediastinal lymph nodes. AP window nodes measure up to 12 mm in short axis. A subcarinal node measures 15 mm in short axis. Ambreen: Clear. Axillae: There is no axillary lymphadenopathy. Upper abdomen: Partially visualized upper abdominal viscera is within normal limits. Skeletal structures: The skeletal structures are osteopenic. See below for dedicated assessment of the thoracic spine. No lytic or blastic bony lesions are seen. Several of the right posterior ribs are surgically absent. THORACIC SPINE: Vertebral body height and alignment are maintained throughout the thoracic spine. There is no evidence of fracture or malalignment. Anterior and lateral marginal osteophytes are seen throughout. The transverse and spinous processes are intact. The disc spaces are preserved. There is mild multilevel degenerative disc space narrowing. Posterior disc osteophyte complexes are seen at T9-T10, T10-T11, and T11-T12. There is no CT evidence of large disc herniation or high-grade central canal stenosis by CT. The paraspinous soft tissues are normal in appearance. IMPRESSION: 1. There is no evidence of pulmonary embolus in the main, lobar, or segmental pulmonary arteries. 2. Cardiomegaly, emphysema, and postoperative change from right lower lobe resection. 3. No acute bony abnormality is seen involving the thoracic spine. 4. There is patchy groundglass consolidation at the right lung base. Patchy consolidation is also seen dependently within the left lung. Correlate clinically for evidence of pneumonia/aspiration pneumonitis. 5. There is evidence of progressive metastatic disease throughout the right lung as compared to 07/05/2019 as detailed above. 6. Additional findings as above. CT head/brain wo con CLINICAL HISTORY: 84 years-old Male presenting with fall head trauma. TECHNIQUE: Multidetector CT imaging of the head was performed without the use of intravenous contrast. IV contrast: None. One or more dose lowering techniques were used consistent with the principles of ALARA (as low as reasonably achievable), including automatic exposure control, mA or kV adjustment to individual patient size, and/or use of iterative reconstruction. COMPARISON: 10/26/2018. CT DOSE (mGy.cm): The estimated cumulative dose is 1124.21. FINDINGS: Learning And Development Consultant topogram: Unremarkable. Proportional ventricular and sulcal prominence, likely age-related parenchymal volume loss. No hemorrhage. Periventricular and subcortical white matter hypoattenuation, nonspecific but likely indicative of chronic small vessel ischemic change. No acute territorial infarct. No mass effect or midline shift. No extra-axial fluid collection. Trace air-fluid level in the left maxillary sinus. Calvarium intact. Intracranial atherosclerosis noted. IMPRESSION: 1. Chronic small vessel ischemic change. No acute intracranial abnormality. Code Status & VTE Plan Code Status Full -discussed with the patient at bedside. He would not be interested in heroic measures if he would need life support. Supervising Physician Co-Signing Physician Notes I supervised Helena Correa PA-C on this patient's care. I examined the p atient today independently of her. I discussed the plan of care with her with the plan being as written in her note except for any following changes/exceptions: None. 84yo M w/ hx of squamous cell carcinoma who presents with shortness of breath and dysphagia for several days. He reports that for the last several days, he has been having trouble swallowing with his frequently having to slap him on the back. At the same time, he has also been having more shortness of breath. CT chest shows bibasilar consolidations consistent with aspiration pneumonia. - Consult oncology for any inpatient needs - Consult GI for possible scope given his dysphagia to solids then liquids - Consult palliative care given his - IV fluids and abx - MRSA swab pending. - BP is a bit soft (95/50 while in the room), so will closely monitor overnight. Responding well to a small bolus, and the patient otherwise has no other qSOFA criteria and 1/4 SIRS (WBC is exactly 12 which is long-standing for him.). At this time, I do not believe he meets criteria for sepsis. Hold beta-usama. May just have been the Dilaudid he received for pain control. PG Care Time/CCT Total # of Minutes Spent Total Time Spent with Patient: Total time spent is greater than 50% in coordination of care (as documented) at patient's floor/unit and/or counseling patient: (1) Rheumatoid arthritis Rheumatoid arthritis location: unspecified site Rheumatoid factor presence: with rheumatoid factor Qualified Code(s): M05.9 - Rheumatoid arthritis with rheumatoid factor, unspecified (2) Type II diabetes mellitus Diabetes mellitus complication status: without complication Diabetes mellitus assisted insulin use: with exterminator helper termite use Qualified Code(s): E11.9 - Type 2 diabetes mellitus without complications; Z79.4 - terminal superintendent (current) use of insulin (3) Coronary artery disease Associated angina: without angina Coronary Disease-Associated Artery/Lesion type: [place] artery [place] vs. transplanted heart: [place] heart Qualified Code(s): I25.10 - Atherosclerotic heart disease of [place] coronary artery without angina pectoris (4) Squamous cell carcinoma of lung, stage IV Laterality: right Qualified Code(s): C34.91 - Malignant neoplasm of unspecified part of right bronchus or lung (5) CKD (chronic kidney disease) Chronic kidney disease stage: unspecified stage Qualified Code(s): N18.9 - Chronic kidney disease, unspecified
[2019-09-12] MEDS ORDERED: SODIUM CHLORIDE 0.9% 1000ML 250 ML IV ONE ×2 (17:35→18:00)
[2019-09-12 18:31] LABS: Appearance Urine Clear (Clear); Bacteria Urine Automated Negative (Negative); Bilirubin Urine Negative (Negative); Blood Urine Negative (Negative); Color Urine Dark Yellow; Epithelial Cell Urine Auto 0-5 /lpf (0-5); Glucose Urine UA Negative (Negative); Ketones Urine Negative (Negative); Leukocyte Esterase Urine Negative (Negative); Nitrite Urine Negative (Negative); Protein Urine 1+ (Negative); RBC Urine Automated 0-4 /hpf (0-4); Specific Gravity Urine 1.032 (1.000-1.030); Urobilinogen Urine Negative (Negative); WBC Urine Automated 0 /hpf (0-5); pH Urine 5.5 (4.5-7.5)
[2019-09-12 19:21] LABS: Influenza A virus by PCR Neg for Influ A (Neg); Influenza B virus by PCR Neg for Influ B (Neg)
[2019-09-12] MEDS ORDERED: ALBUTEROL HFA 8 GM INHALER INH PRN (20:12)
[2019-09-12] MEDS ORDERED: ONDANSETRON INJ 2 MG/ML 2 ML VIAL IV PRN (20:12)
[2019-09-12] MEDS ORDERED: PEMBROLIZUMAB IV SCH (20:12)
[2019-09-12] MEDS ORDERED: ACETAMINOPHEN 500 MG TAB PO PRN (20:12)
[2019-09-12] MEDS ORDERED: GLUCOSE 40% GEL 15 GM TUBE PO PRN (20:12)
[2019-09-12] MEDS ORDERED: CARBOHYDRATES FOR HYPOGLYCEMIA PO PRN (20:12)
[2019-09-12] MEDS ORDERED: GLUCAGON FOR INJ 1 MG VIAL SQ PRN (20:12)
[2019-09-12] MEDS ORDERED: LIDOCAINE 5% 1 PATCH TD PRN (20:12)
[2019-09-12] MEDS ORDERED: PROCHLORPERAZINE MALEATE 10 MG TAB PO PRN (20:12)
[2019-09-12] MEDS ORDERED: GLUCOSE 10 TABS/TUBE PO PRN (20:12)
[2019-09-12] MEDS ORDERED: DEXTROSE 50% 50 ML SYRINGE IV PRN (20:12)
[2019-09-12] MEDS ORDERED: ACETAMINOPHEN 325 MG TAB PO PRN (20:12)
[2019-09-12] MEDS: SODIUM CHLORIDE 0.9% 1000ML 1,000 ML IV SCH (20:42)
[2019-09-12] MEDS ORDERED: CHOLECALCIFEROL 1,000 UNITS TAB PO SCH (21:00)
[2019-09-12] MEDS ORDERED: GABAPENTIN 300 MG CAP PO SCH (21:00)
[2019-09-12] MEDS ORDERED: ASPIRIN 81 MG ECTAB PO SCH (21:00)
[2019-09-12] MEDS ORDERED: predniSONE 5 MG TAB PO SCH (21:00)
[2019-09-12] MEDS ORDERED: SIMVASTATIN 40 MG TAB PO SCH (21:00)
[2019-09-12] MEDS ORDERED: METOPROLOL TARTRATE 50 MG TAB PO SCH (21:00)
[2019-09-12] MEDS ORDERED: SODIUM CHLORIDE 0.9% 1000ML 500 ML IV ONE (21:01)
[2019-09-12] MEDS: METOPROLOL TARTRATE 25 MG TAB PO SCH (21:19)
[2019-09-12] MEDS: OMEGA-3 (PURIFIED FISH OIL) 1 GM CAP PO SCH (21:20)
[2019-09-12] MEDS: DOCUSATE SODIUM 100 MG CAP PO SCH (21:22)
[2019-09-12] MEDS: HEPARIN SOD 5,000 UNIT/0.5 ML VIAL SQ SCH (21:30)
[2019-09-12] MEDS: INSULIN ASPART 100 UNITS/ML 3 ML PEN SC SCH (21:45)
[2019-09-12] MEDS: PIPERACILLIN/TAZOBACTAM 3.375 GM in DEXTROSE 5% 100 ML IV SCH (23:49)
[2019-09-13] MEDS: SODIUM CHLORIDE 0.9% 1000ML 1,000 ML IV SCH ×3 (04:10→23:41)
[2019-09-13] MEDS: HEPARIN SOD 5,000 UNIT/0.5 ML VIAL SQ SCH ×3 (05:53→20:38)
[2019-09-13 06:14] LABS: Hematocrit (blood only) 24.3 % (42-52); Hemoglobin 7.8 g/dL (14.0-18.0); Mean Corpuscular Hemoglobin 31.1 pg (25-34); Mean Corpuscular Hgb Conc 32.1 g/dL (32-36); Mean Corpuscular Volume 96.8 fL (80-100); Mean Platelet Volume 9.9 fL (7.4-10.4); Platelet Count 208 K/uL (130-400); RDW Coefficient of Variation 15.5 % (11.5-14.5); RDW Standard Deviation 55.2 fL (36.4-46.3); Red Blood Count 2.51 M/uL (4.7-6.1); White Blood Count 11.86 K/uL (4.8-10.8)
[2019-09-13 06:57] LABS: Estimated Average Glucose 146 mg/dl; Hemoglobin A1C 6.7 % (4.5-5.6)
[2019-09-13 07:00] LABS: Albumin Globulin Ratio 0.4 (0.9-2); Albumin Level 1.9 gm/dl (3.4-5.0); Bilirubin,Total 0.4 mg/dl (0.2-1); Calcium 9.5 mg/dl (8.5-10.1); Creatinine Clr Calc Pharmacy 28.5 ml/min; Est GFR (African American) 40.3; Est GFR (Non-African American) 34.8; Globulin 4.5 gm/dl (2.5-4.0); Total Protein 6.4 gm/dl (6.4-8.2)
[2019-09-13] MEDS: INSULIN ASPART 100 UNITS/ML 3 ML PEN SC SCH ×4 (08:06→20:37)
[2019-09-13] MEDS: PIPERACILLIN/TAZOBACTAM 3.375 GM in DEXTROSE 5% 100 ML IV SCH ×3 (08:16→23:43)
[2019-09-13] MEDS: METOPROLOL TARTRATE 25 MG TAB PO SCH (08:19)
[2019-09-13] MEDS: DOCUSATE SODIUM 100 MG CAP PO SCH (08:19)
[2019-09-13] MEDS: OMEGA-3 (PURIFIED FISH OIL) 1 GM CAP PO SCH (08:20)
[2019-09-13] MEDS ORDERED: ALLOPURINOL 300 MG TAB PO SCH (09:00)
[2019-09-13] MEDS ORDERED: FOLIC ACID 400 MCG TAB PO SCH (09:00)
[2019-09-13] MEDS ORDERED: CALCIUM 600MG + VIT D 400 IU TAB PO SCH (09:00)
[2019-09-13] MEDS ORDERED: SITAGLIPTIN PHOSPHATE 100 MG TAB PO SCH (09:00)
[2019-09-13] MEDS ORDERED: MULTIVITAMIN TAB PO SCH (09:00)
--- NOTE | 2019-09-13 09:04 | Consultation Report ---
DATE OF CONSULTATION: 09/13/2019 MEDICAL ONCOLOGY CONSULTATION REASON FOR CONSULTATION: An 84-year-old gentleman with metastatic nonsmall cell lung cancer admitted with subacute onset dysphagia. HISTORY OF PRESENT ILLNESS: John Bhatia is a pleasant 84-year-old gentleman well known to [facility], currently under Dr. 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 He presented yesterday with worsening shortness of breath over the past couple of days. He also reports about 7-10 days of dysphagia with both solids and liquids. He has had a couple of episodes that he actually nearly aspirated requiring his to slap him on the back. This in turn resulted in dry heaves and vomiting several times within the past couple of days. Jannette has had minimal p.o. intake over the past couple of weeks. He also reports not moving his bowels in a close to a week at this juncture. The patient overall appears to have a declining performance status with difficulty walking. Apparently, he remained sedentary on good portion of the day. He also relates pain involving the right upper abdomen and rib cage which is constant. Mr. Bhatia underwent a right lower lobectomy about a year ago and believes pain is related from his prior surgery. This gentleman was originally diagnosed with a stage IIB (T3, N0, MX) status post right lower lobectomy in October of 2018. He was treated with adjuvant carboplatin and gemcitabine. In June of 2019, multiple soft tissue nodules were seen in the right lung, were suspicious and observation continued until July when a PET scan had demonstrated FDG uptake consistent with malignancy. He underwent endobronchial ultrasound, biopsy of the mediastinal mass in early August which revealed a metastatic squamous cell carcinoma. Thus, because Mr. Bhatia's tumor was 70% PD-L1 avid, he started pembrolizumab on 08/28/2019, thus his last visit with Dr. Ramirez. PAST MEDICAL HISTORY: Again, significant for rheumatoid arthritis, coronary artery disease, metastatic squamous cell carcinoma of the lung, type 2 diabetes mellitus, previous myocardial infarction, history of bladder cancer, anemia, chronic obstructive pulmonary disease, history of deep vein thrombosis, gout, hyperlipidemia, hypertension. PAST SURGICAL HISTORY: Status post right lower lobectomy, coronary artery stenting, arthroscopy of the left shoulder, cardiac catheterization x3, cataract surgery, TURP and a colonoscopy. MEDICATIONS: Prior to admission include Januvia 100 mg p.o. daily, Lidoderm patch topically daily p.r.n., gabapentin 900 mg p.o. at bedtime, simvastatin 40 mg p.o. daily, docusate sodium 100 mg p.o. b.i.d., Tylenol 1000 mg p.o. q. 6 hours p.r.n., prednisone 5 mg p.o. at bedtime, omega-3 fatty acids 1 capsule p.o. b.i.d., multivitamin 1 tablet p.o. daily, metoprolol 25 mg p.o. b.i.d., folic acid 400 mcg p.o. daily, cholecalciferol 2000 units p.o. daily, aspirin 81 mg p.o. daily, allopurinol 300 mg p.o. daily, albuterol sulfate inhaler 2 puffs inhaled q. 6 hours p.r.n., calcium 600 mg with vitamin D 1 tablet p.o. daily. ALLERGIES: METFORMIN. SOCIAL HISTORY: The patient is retired, and lives with his spouse. Nonsmoker. Positive for social alcohol. FAMILY HISTORY: Positive for diabetes mellitus. REVIEW OF SYSTEMS: As per HPI, most notably for uncontrolled skeletal pain as well as progressive dysphagia with new aspiration. Negative for fevers, chills, night sweats or flu-like symptoms. SKIN: No rashes or lesions. No history of dermatoses. HEENT: Denies headaches, lightheadedness or dizziness. No acute visual or hearing deficits. No sinus symptoms. Negative for sore throat. Positive for dysphagia. LYMPH: No history of lymphoproliferative disease. CARDIAC: History of coronary artery disease. No current angina or palpitations. PULMONARY: History of COPD. He is not short of breath, dyspneic or orthopneic. No cough or hemoptysis. Status post right lower lobectomy. GASTROINTESTINAL: Positive for constipation. Positive for intermittent abdominal pain. No hematochezia, melena or skye rectal bleeding. GENITOURINARY: No hematuria, dysuria or urinary incontinence. PSYCHIATRIC: Negative for anxiety, depression or psychoses. MUSCULOSKELETAL: Positive for right-sided chest wall pain. He also suffers from rheumatoid arthritis, had previously been on Humira. NEUROLOGIC: Negative for seizure, stroke, or migraine headache. HEMATOLOGIC: Positive for mild leukocytosis and normocytic normochromic anemia. PHYSICAL EXAMINATION: GENERAL: A very pleasant 84-year-old gentleman in no acute distress. VITAL SIGNS: Temperature 36.6, pulse 52, respiratory rate 20, blood pressure 100/57. SKIN: Warm, dry, noncyanotic without petechia, rash or ecchymosis. He has a couple of excoriations in the upper lip. Excoriations of the lower lip. HEENT: Atraumatic, normocephalic. Eyes: PERRLA, EOMI. Sclerae nonicteric. No conjunctival injection. Patent without rhinorrhea or discharge. Throat is clear. Mucous membranes are quite dry. No evidence of thrush. NECK: Supple without JVD or thyromegaly. HEART: Regular rate and rhythm. No clicks, rubs, murmurs or gallops. LUNGS: Clear to auscultation bilaterally. ABDOMEN: Soft, nontender, nondistended without palpable hepatosplenomegaly. EXTREMITIES: Musculoskeletal strength and pulses are equal in 4 quadrants. No clubbing, cyanosis or edema noted otherwise. NEUROLOGIC: He is awake, alert and oriented x3. Cranial nerves are grossly intact. LABORATORY DATA: WBC count 11,860, hemoglobin 7.8, platelet count 208,000. Sodium 136, potassium 5, chloride 104, carbon dioxide 25, creatinine 1.78, BUN 36. Albumin 1.9. RADIOGRAPHIC DATA: CTA of the chest, no evidence of pulmonary embolism, cardiomegaly, emphysema, postoperative changes, right lower lobe resection is noted. Patchy ground-glass consolidation of the right face, possibly nutrition representative of aspiration pneumonia. Evidence of progressive metastatic disease throughout the right lung and is compared to 07/05/2019 film. IMPRESSION: 1. Suspect right lower lobe pneumonia, possible aspiration. 2. Dysphagia. 3. Intractable skeletal pain. 4. Metastatic squamous cell carcinoma of the lung. 5. Chronic kidney disease. 6. Hypoalbuminemia. 7. Type 2 diabetes mellitus. PLAN: I am seeing Mr. Bhatia on behalf of Dr. Ramirez. This gentleman was recently diagnosed with a PD-L1 avid metastatic squamous cell carcinoma of the lung back in early August. He recently received his initial course of pembrolizumab on the . Over the past week and half, he has been struggling with anorexia, weight loss, poor p.o. intake, dysphagia and skeletal pain. Mr. Bhatia describes episodes after consuming both solids and liquids, his had to pound him on the back to dislodge food bolus or fluid. Radiographically, it would appear he may have indeed aspirated. Agree with current diagnostic workup, barium swallow may be helpful, perhaps even EGD is indicated in this gentleman's case. I do not believe there is a direct relationship between the pembrolizumab and these events. Based on this gentleman's low albumin, however, aggressive nutritional support needs to be undertaken one way or another, if he cannot swallow, may need to consider enteral feeding moving forward. Dr. Ramirez is aware of this gentleman's hospitalization and will defer to him regarding when and if pembrolizumab resumes. We will continue to follow Mr. Bhatia periodically during his stay. I totally agree with current medical approach and I have nothing further to add at this time. MTDD
--- NOTE | 2019-09-13 09:37 | Gastrointestinal Consultation ---
Date of Consultation September 13, 2019 Assessment & Plan (1) Dysphagia: Patient is an 84 yo male with Stage IV lung cancer who presents with 10 days of solid & liquid dysphagia. -Discussed with [facility] 12 TUTOR; Attempt barium swallow. If aspirating, then would obtain video swallow. -Protonix 40 mg BID. -Pending results of imaging, would make further recommendations at that time. Thank you for allowing us to participate in the care of this patient. If you should have any further questions or concerns, do not hesitate to contact us at extension [phone] or [phone]. Supervising Physician Co-Signing Physician Notes I personally evaluated the patient and agree with the findings as documented by Kaila Iniguez, CLAKR Exam: abd: soft, nt, nd History of Present Illness Reason for Consultation: Dysphagia Attending Physician: Eron Schroeder MD History of Present Illness Patient is an 84 yo male with PMH of stage IV squamous cell carcinoma of the lung, constipation, gout, CAD, rheumatoid arthritis, DM2 with neuropathy who is hospitalized with pneumonia. GI has been consulted for dysphagia and aspiration. Dysphagia is to solid & liquids. He denies a history of reflux. I do not see a previous GI work-up in his chart. I do not see any outpatient GERD medications or history in his chart. He notes that he feels that food and liquids get stuck at the back of his throat. He denies family history of GI malignancy. No melena or hematemesis. His H/H is 7.8/24.3. CT indicated an abnormal soft tissue mass in the right paramediastinal & paravertebral region. CT overall suggested progressive metastatic disease. He denies abdominal pain, reflux, or heartburn. Allergies Allergy/AdvReac Type Severity Reaction Status Date / Time metformin [From Glucophage] AdvReac Intermediate Diarrhea Verified 08/14/19 09:37 Home Medications Home Medications Medication Instructions Recorded Confirmed Type Calcium 600 + D(3) 1 tab PO QAM 09/03/18 09/12/19 History albuterol sulfate [ProAir HFA] 2 puff INHALATION Q6H PRN 09/03/18 09/12/19 History allopurinol 300 mg PO QAM 09/03/18 09/12/19 History aspirin [Aspir-81] 81 mg PO HS 09/03/18 09/12/19 History cholecalciferol (vitamin D3) 2,000 units PO HS 09/03/18 09/12/19 History folic acid 400 mcg PO QAM 09/03/18 09/12/19 History metoprolol tartrate 25 mg PO BID 09/03/18 09/12/19 History multivitamin [Multiple Vitamins] 1 tab PO QAM 09/03/18 09/12/19 History omega-3 fatty acids-fish oil [Fish 1 cap PO BID 09/03/18 09/12/19 History Oil] prednisone 5 mg PO HS 09/03/18 09/12/19 History acetaminophen [Tylenol Extra 1,000 mg PO Q6H PRN 11/07/18 09/12/19 History Strength] docusate sodium 100 mg PO BID 05/30/19 09/12/19 History simvastatin 40 mg PO HS 05/30/19 09/12/19 History gabapentin 300 mg capsule 900 mg PO HS cap 06/11/19 09/12/19 History lidocaine [Lidoderm] 1 patch TOPICAL DAILY PRN 08/14/19 09/12/19 History pembrolizumab [Keytruda] 0 mg IV UD 09/12/19 09/12/19 History sitagliptin [Januvia] 100 mg PO QAM 09/12/19 09/12/19 History Patient History Medical History 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 MIN monitoring - reports no surgical intervention needed at present time Chronic obstructive pulmonary disease Coronary artery disease Deep vein thrombosis > 30 years ago - treated - LEG UNKNOWN CAUSE Dizziness HAVING SOME DIZZY EPISODES AND HAD FALLEN AND HAD STITCHES IN HAND AND WAS REMOVED 11/07/18 Gout Hyperlipidemia Hypertension Lung cancer S/P R Thoracoscopy and R Lower Lobectomy with portion of [address] Arcos 10/09/18 Surgical History History of arthroscopy (Acute) LEFT SHOULDER History of heart artery stent (Acute) 1999 ONE STENT, [address] FOLLOWS WITH DR MIN History of Mohs micrographic surgery for skin cancer History of cardiac cath x 3 1999 - cp - 1 stent placed - [facility] - follows w/ dr. lozada 03/2002 - [place] - 1 stent placed - [facility] 06/2002 - reason? 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 Beliefs That Will Affect Care: None marital status: Current Living Situation: Spouse Current Living Situation Comment: and granddaughter and great grandchildren current occupational status: retired Feels Safe at Home: Yes Safety Concerns: Feels Safe At This Time Smoking Status: Former smoker Tobacco Type: cigarettes ; Cigarettes Per Day: 1/2 ppd ; Smoking End Date: 10/05/2018 ; Second Hand Exposure: No ; Hx Alcohol Use: Yes Alcohol type: hard liquor Hx Substance Use: No Childhood Exposure to Second-Hand Smoke: Yes Dental Care, Regularly: Yes Physical Activity Frequency: 1-2 Times per Week Seatbelt Use: always Sunscreen Use: No Review of Systems Constitutional: + fatigue; no fever and no chills Eyes: no acute issues Ear, Nose, Mouth, Throat: no acute issues Respiratory: no cough and no dyspnea Cardiovascular: no chest pain Gastrointestinal: + dysphagia; no abdominal pain, no belching, no heartburn, no nausea and no vomiting Musculoskeletal: no acute issues Integumentary: no rash Neurologic: no falls Psychiatric: no acute issues Endocrine: + fatigue Hematologic / Lymphatic: no easy bleeding Physical Exam Constitutional: + ill appearing Eyes: PERRL, conjunctivae normal, anicteric sclerae ENMT: Nose: + dry nasal mucous membranes Neck: normal visual inspection Respiratory: + cough Auscultation: + bronchial breath sounds Cardiovascular: RRR, no murmur, no edema Gastrointestinal (Abdomen): normal bowel sounds, soft, nontender, no hepatosplenomegaly Musculoskeletal: Extremities: extremities normal to inspection Skin: no rashes, warm and dry Psychiatric: A+Ox3, euthymic affect Results & Data Vital Signs (Past 12 Hours) Vital Signs Temp Pulse Resp BP BP Pulse Ox 09/13/19 07:13 36.6 C 52 L 20 100/57 L 96 09/13/19 04:00 36.9 C 92 H 18 107/46 L 93 09/12/19 22:50 36.5 C 56 L 18 111/53 L 97 PG Care Time/CCT Total # of Minutes Spent Total Time Spent with Patient: Total time spent is greater than 50% in coordination of care (as documented) at patient's floor/unit and/or counseling patient: (1) Dysphagia Dysphagia type: unspecified Qualified Code(s): R13.10 - Dysphagia, unspecified
[2019-09-13] MEDS: methylPREDNISolone 40 MG in SYRINGE 0 ML IV SCH (10:42)
--- NOTE | 2019-09-13 12:10 | Fluoroscopy Report ---
DOUBLE CONTRAST BARIUM ESOPHAGRAM CLINICAL HISTORY: Dysphagia with liquids and solids. COMPARISON STUDY: CT of the neck dated 05/30/2019. TECHNIQUE: A standard air contrast barium esophagram is initiated. 4 spot images of the esophagus wer e obtained. FINDINGS: Silent aspiration was seen on the initial images. The examination was terminated at that ti me. The esophagus is grossly morphologically normal but not diagnostically assessed. Right subclavian central venous catheter is in place. Fluoroscopy time: 0.3 minutes. Fluoroscopic images: 4 IMPRESSION: 1. Silent aspiration was identified and the examination was discontinued. 2. The esophagus was not well evaluated. Electronically signed by: Ulises Arrieta M.D. 09/13/2019 12:08 PM
--- NOTE | 2019-09-13 13:09 | Fluoroscopy Report ---
VIDEO SWALLOW STUDY CLINICAL HISTORY: Aspiration. Dysphagia. COMPARISON STUDY: CT of the neck dated 05/30/2019. TECHNIQUE: Fluoroscopic guidance was provided to the Department of Speech Pathology in performing a v ideo swallow study. The patient consumed barium-impregnated pudding, honey-thick liquid, and nectar t hick liquid while the swallowing mechanism was observed in real-time. Aspiration was seen with all sa mpled textures. IMPRESSION: Aspiration was seen with all sampled textures. See dedicated speech pathology report for detailed findings and recommendations. Dictated: 09/13/2019 12:02 PM Transcribed: 09/13/2019 12:51 PM Crystal [id number] Electronically signed by: Ulises Arrieta M.D. 09/13/2019 1:08 PM
[2019-09-13] MEDS ORDERED: BISACODYL 10 MG SUPP PR PRN (15:31)
--- NOTE | 2019-09-13 16:54 | Palliative Care Consultation ---
Date of Consultation September 13, 2019 Assessment & Plan (1) Goals of care, counseling/discussion: Patient is an 84-year-old male with a past medical history significant for metastatic non-small cell lung cancer-diagnosed in September 2018-status post lobectomy and chemo, no XRT. Patient states that over the last several weeks he has had increased dysphasia with coughing and even choking episodes. This has been increasing in frequency and severity. Patient also notes increased weakness and intermittent fevers at home. Patient was brought to the emergency room on 09/12 and was found to have evidence of aspiration pneumonia/pneumonitis on chest x-ray. Patient is currently on IV antibiotics and Solu-Medrol. He is n.p.o. Patient had a video swallow and barium swallow done today which showed overt aspiration of all consistencies. Patient has no other focal deficits indicative of CVA. Patient underwent a head CT which was negative. Patient does note right-sided chest and rib pain which is been present since his surgery-he rates as a 4 out of 10 constant pain at rest, increases to a 6 out of 10 with movement. Patient noted increased pain on the right side towards his spine-states it started over the summer and has been increasing. CT of the T- spine did not show any lesions or stenosis. Patient has taken Tylenol and ibuprofen for pain with no effect. Patient did try marijuana-he did not feel this helped with his pain either. 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 He would not want prolonged heroic measures, patient states his is his healthcare surrogate and that she is aware of his wishes. Patient has 3 children-other daughter that lives in [place], a son lives in [place] and a daughter who lives near [facility]. Patient currently lives in [facility] with his in the same home as his daughter, son-in-law, granddaughter and 2 great-grandchildren. The patient and his have separate living area- however share meals with the rest of the family. Patient does note increased weakness and fatigue. States his pain does not interfere with his sleep but contributes to his decreased activity. Patient was found to have recurrence of his lung cancer-he started on Keytruda 3 weeks ago, his next dose is due on 09/18. Patient was to undergo EBUS -but location of lesion is better accessed by CT-guided biopsy-has not yet been done. Initiated discussion regarding feeding tube-if no reversible etiology for his dysphasia can be found. Plan is for MRI of the brain, and improve pain control. PPS 50%. -CODE STATUS-patient will remain a full code -Goals of care-continue to investigate possible reversible causes of dysphasia, patient is amenable to considering a feeding tube, he would like to improve his pain control as well as improve his weakness. -Dysphasia-for all consistencies, patient is n.p.o. This is a new symptom over the last few months-increasing in frequency and severity. Plan for MRI of the brain. Patient amenable to being assessed for a feeding tube if necessary. -Metastatic non-small cell lung cancer-now with recurrence-started on Keytruda 3 weeks ago. -Pain-not adequately controlled-would recommend starting a 12 mcg fentanyl patch-patient is agreeable. Will continue to follow and assist patient and family with medical decision making. (2) Dysphagia: Dysphagia type: unspecified Qualified Code(s): R13.10 - Dysphagia, unspecified (3) Squamous cell carcinoma of lung, stage IV: Laterality: right Qualified Code(s): C34.91 - Malignant neoplasm of unspecified part of right bronchus or lung (4) Cancer associated pain: History of Present Illness Reason for Consultation: Clarify CODE STATUS and address goals of care Requesting Physician: Rose Mary Correa PA-C Attending Physician: Rafal Childers History of Present Illness Patient seen and examined-no family at bedside. Dr. Childers present during part of the visit. Patient is an 84-year-old male with a past medical history significant for metastatic non-small cell lung cancer-diagnosed in September 2018-status post lobectomy and chemo, no XRT. Patient states that over the last several weeks he has had increased dysphasia with coughing and even choking episodes. This has been increasing in frequency and severity. Patient also notes increased weakness and intermittent fevers at home. Patient was brought to the emergency room on 09/12 and was found to have evidence of aspiration pneumonia/pneumonitis on chest x-ray. Patient is currently on IV antibiotics and Solu-Medrol. He is n.p.o. Patient had a video swallow and barium swallow done today which showed overt aspiration of all consistencies. Patient has no other focal deficits indicative of CVA. Patient underwent a head CT which was negative. Patient does note right-sided chest and rib pain which is been present since his surgery-he rates as a 4 out of 10 constant pain at rest, increases to a 6 out of 10 with movement. Patient noted increased pain on the right side towards his spine-states it started over the summer and has been increasing. CT of the T- spine did not show any lesions or stenosis. Patient has taken Tylenol and ibuprofen for pain with no effect. Patient did try marijuana-he did not feel this helped with his pain either. 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 He would not want prolonged heroic measures, patient states his is his healthcare surrogate and that she is aware of his wishes. Patient has 3 children-other daughter that lives in [place], a son lives in [place] and a daughter who lives near [facility]. Patient currently lives in [facility] with his in the same home as his daughter, son-in-law, granddaughter and 2 great-grandchildren. The patient and his have separate living area- however share meals with the rest of the family. Patient does note increased weakness and fatigue. States his pain does not interfere with his sleep but contributes to his decreased activity. Patient was found to have recurrence of his lung cancer-he started on Keytruda 3 weeks ago, his next dose is due on 09/18. Patient was to undergo EBUS -but location of lesion is better accessed by CT-guided biopsy-has not yet been done. Initiated discussion regarding feeding tube-if no reversible etiology for his dysphasia can be found. Plan is for MRI of the brain, and improve pain control. PPS 50%. Allergies Allergy/AdvReac Type Severity Reaction Status Date / Time metformin [From Glucophage] AdvReac Intermediate Diarrhea Verified 08/14/19 09:37 Home Medications Home Medications Medication Instructions Recorded Confirmed Type Calcium 600 + D(3) 1 tab PO QAM 09/03/18 09/12/19 History albuterol sulfate [ProAir HFA] 2 puff INHALATION Q6H PRN 09/03/18 09/12/19 History allopurinol 300 mg PO QAM 09/03/18 09/12/19 History aspirin [Aspir-81] 81 mg PO HS 09/03/18 09/12/19 History cholecalciferol (vitamin D3) 2,000 units PO HS 09/03/18 09/12/19 History folic acid 400 mcg PO QAM 09/03/18 09/12/19 History metoprolol tartrate 25 mg PO BID 09/03/18 09/12/19 History multivitamin [Multiple Vitamins] 1 tab PO QAM 09/03/18 09/12/19 History omega-3 fatty acids-fish oil [Fish 1 cap PO BID 09/03/18 09/12/19 History Oil] prednisone 5 mg PO HS 09/03/18 09/12/19 History acetaminophen [Tylenol Extra 1,000 mg PO Q6H PRN 11/07/18 09/12/19 History Strength] docusate sodium 100 mg PO BID 05/30/19 09/12/19 History simvastatin 40 mg PO HS 05/30/19 09/12/19 History gabapentin 300 mg capsule 900 mg PO HS cap 06/11/19 09/12/19 History lidocaine [Lidoderm] 1 patch TOPICAL DAILY PRN 08/14/19 09/12/19 History pembrolizumab [Keytruda] 0 mg IV UD 09/12/19 09/12/19 History sitagliptin [Januvia] 100 mg PO QAM 09/12/19 09/12/19 History Patient History Medical History 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 MIN monitoring - reports no surgical intervention needed at present time Chronic obstructive pulmonary disease Coronary artery disease Deep vein thrombosis > 30 years ago - treated - LEG UNKNOWN CAUSE Dizziness HAVING SOME DIZZY EPISODES AND HAD FALLEN AND HAD STITCHES IN HAND AND WAS REMOVED 11/07/18 Gout Hyperlipidemia Hypertension Lung cancer S/P R Thoracoscopy and R Lower Lobectomy with portion of [address] Arcos 10/09/18 Surgical History History of arthroscopy (Acute) LEFT SHOULDER History of heart artery stent (Acute) 1999 ONE STENT, [address] FOLLOWS WITH DR MIN History of Mohs micrographic surgery for skin cancer History of cardiac cath x 3 1999 - cp - 1 stent placed - [facility] - follows w/ dr. lozada 03/2002 - [place] - 1 stent placed - [facility] 06/2002 - reason? - 1 stent placed - [facility] History of cataract surgery RIGHT AND LEFT History of lobectomy of lung RIGHT LUNG AND THOROSCOPY History of surgery TRANSURETHRAL RESECTION OF BLADDER TUMOR Hx of colonoscopy Family History Mother Diabetes Other No significant family history Social History Preferred Language: Yemeni Communication Ability: Effective Visual Impairment: No Limitations Hearing Ability: Normal Engine Designer Required: No Beliefs That Will Affect Care: None marital status: Current Living Situation: Spouse Current Living Situation Comment: and granddaughter and great grandchildren current occupational status: retired Feels Safe at Home: Yes Safety Concerns: Feels Safe At This Time Smoking Status: Former smoker Tobacco Type: cigarettes ; Cigarettes Per Day: 1/2 ppd ; Smoking End Date: 10/05/2018 ; Second Hand Exposure: No ; Hx Alcohol Use: Yes Alcohol type: hard liquor Hx Substance Use: No Childhood Exposure to Second-Hand Smoke: Yes Dental Care, Regularly: Yes Physical Activity Frequency: 1-2 Times per Week Seatbelt Use: always Sunscreen Use: No Review of Systems Constitutional: + fatigue, + weakness and + weight loss Eyes: no problem reported Ear, Nose, Mouth, Throat: + dysphagia Respiratory: + cough and + dyspnea Cardiovascular: no edema Gastrointestinal: + dysphagia and + constipation Genitourinary: no problem reported Musculoskeletal: + back pain and + muscle weakness Integumentary: no problem reported Neurologic: + generalized weakness Essential tremor Psychiatric: no problem reported Endocrine: Diabetes-hemoglobin A1c 6.7 Hematologic / Lymphatic: Anemia Physical Exam Physical Exam: PE: Patient awake and alert, appears comfortable lying in bed HEENT: EOMI, hearing within normal limits Respiratory: Unlabored, on O2, diminished breath sounds bilateral bases right greater than left CV: Regular rate, no edema Abdomen: Soft, nontender Extremities: Cachectic Neuro: Alert and oriented x4 Results & Data Vital Signs (Past 12 Hours) Vital Signs Temp Pulse Resp BP Pulse Ox 09/13/19 07:13 97.9 F 52 L 20 100/57 L 96 PG Care Time/CCT Total # of Minutes Spent Total Time Spent with Patient: Total time spent is greater than 50% in coordination of care (as documented) at patient's floor/unit and/or counseling patient: Time Spent Attending Total time spent 70 minutes with greater than 50% of the time spent at bedside discussing patient's CODE STATUS as well as goals of care.
--- NOTE | 2019-09-13 17:33 | Magnetic Resonance Report ---
MR brain wo con CLINICAL HISTORY: 84 years-old Male presenting with dysphagia x 2 wks; stage 4 lung ca; eval CVA, etc . TECHNIQUE: Multisequence, multiplanar MR imaging of the brain was performed without the use of intrav enous contrast. IV contrast: None. COMPARISON: 07/05/2019, PET/CT from 07/22/2019, noncontrast CT head performed the previous day. FINDINGS: Localizer images: Unremarkable. Bone marrow signal intensity within the calvarium within normal limits. Normal midline sagittal structures. Proportional ventricular and sulcal prominence, likely age-relate d parenchymal volume loss. No mass effect or midline shift. No restricted diffusion or hemorrhage. Pe riventricular and subcortical white matter T2/FLAIR hyperintensity, nonspecific but likely indicative of chronic small vessel ischemic change. No extra-axial fluid collection. T2 skull base flow voids preserved. Bilateral tribe lenses are abse nt. IMPRESSION: 1. Chronic small vessel ischemic change. No acute intracranial abnormality. 2. Allowing for noncontrast technique, which moderately limits diagnostic sensitivity for this diagn osis, no convincing evidence of intracranial metastatic disease. Electronically signed by: Chacho England M.D. 09/13/2019 5:31 PM
[2019-09-13] MEDS: fentaNYL 12 MCG/HR TDSY TD SCH (17:49)
[2019-09-13] MEDS: CHECK FENTANYL PATCH PLACEMENT SCH ×2 (17:49→23:45)
--- NOTE | 2019-09-13 18:56 | Hospitalist Progress Note ---
Date of Service September 13, 2019 Assessment & Plan (1) Dysphagia: Appreciate GI and speech consults. s/p barium swallow and video swallow today. I spoke with speech - he aspirated ALL consistencies. Not safe to take anything by mouth. Hold ALL oral medications. STRICT NPO. Cause of dysphagia is uncertain. Subacute stroke? Brain mets from lung cancer? Other? Start with MRI brain. If negative for stroke or brain mets then defer additional w/u to GI (EGD? other testing?). Cont IV H2 usama. (2) RLL pneumonia: Due to aspiration. Also with mild LLL infiltrates on CT. Stop levaquin. Cont with zosyn. Supportive care. (3) Squamous cell carcinoma of lung, stage IV: Initial site - RLL diagnosed Sep 2018 s/p surgery with RLL lobectomy and partial resection of [address] Arcos then had recurrence current chemotherapy - Keytruda - first round ~3 weeks ago; next scheduled chemo 09/18/[address] Ramirez. referred for palliative radiation to help with pain management but has not started XRT CT this admission with significant progression of disease in right chest (see report) appreciate heme/onc consult appreciate palliative care consult start fentanyl patch 12mcg q72h for cancer-related pain MRI brain ordered today - r/o intracranial mets, stroke, etc very, very poor prognosis still wishes to be full code palliative to cont following (4) Coronary artery disease: -Continue ASA daily. 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 on chronic prednisone 5 mg HS HOLD prednisone give stress dose IV steroids - solumedrol 40mg IV daily starting today (10) Type II diabetes mellitus: a1c 6.7% hold oral agents novolog sliding scale (11) Neuropathy: unfortunately, due to dysphagia and need for NPO status -- holding gabapentin (12) Severe protein-calorie malnutrition: severe weight loss in setting of progressive stage 4 lung ca now with dysphagia and inability to take NPO consider enteral feedings if patient desired (13) GERD (gastroesophageal reflux disease): IV H2 usama (14) Anemia: multifactorial - due to cancer, malnutrition, etc. consider iron studies, b12, folate repeat CBC in am Tx if Hb <7.5 (15) DVT prophylaxis: Heparin TID updated by phone 09/13/19 - explained dysphagia and today's test results Subjective met with patient at the bedside with Dr Asif from palliative care. he reports he had had mild intermittent dysphagia in the past but 1-2 weeks ago it became very severe. every time he ate or drank he had significant difficulty with swallowing. he would cough/aspirate and even choke. several times had to "slap him on the back." he has lost significant weight - 20-30 + pounds since the summer to his knowledge despite attempts at eating. he has minimal cough today. main complaint is constant, 4/10, pain in right chest wall region. with activity the pain goes up in intensity. present for many months. he wishes to cont being a full code. however he would not want prolonged heroic measures. denies any focal weakness of arms or legs. Review of Systems Constitutional: + fatigue, + anorexia and + weight loss; no fever and no chills Ear, Nose, Mouth, Throat: + dysphagia; no hoarseness Respiratory: + cough; no dyspnea and no wheezing Cardiovascular: as per Subjective / HPI and + chest pain; no orthopnea and no edema Gastrointestinal: no abdominal pain and no nausea Physical Exam Constitutional: + thin and + frail appearing; + not well developed, + not well nourished, no acute distress and no altered mental status ENMT: external ear and nose normal, oropharynx normal Mouth: + oral mucosal abnormality (?thrush on tongue) and + dry oral mucous membranes Respiratory: no respiratory distress Auscultation: + rales (fine, right base); no wheezes Cardiovascular: RRR, no murmur, no edema Heart Sounds: normal S1 and normal S2 Vessels: + JVD Gastrointestinal (Abdomen): normal bowel sounds, soft, nontender, no h epatosplenomegaly Psychiatric: A+Ox3, euthymic affect Results & Data Vital Signs (Past 12 Hours) Vital Signs Temp Pulse Resp BP Pulse Ox 09/13/19 07:13 36.6 C 52 L 20 100/57 L 96 Laboratory Results Laboratory Results - last 24 hr 09/12/19 09/12/19 09/12/19 18:32 18:32 20:21 WBC RBC Hgb Hct MCV MCH MCHC RDW Std Deviation RDW Coeff of Miryam Plt Count MPV Sodium Potassium Chloride Carbon Dioxide Anion Gap BUN Creatinine Est Cr Clr Drug Dosing Est GFR ( Amer) Est GFR (Non-Af Amer) BUN/Creatinine Ratio Glucose POC Glucose 123 H Estimat Average Glucose Hemoglobin A1c Calcium Total Bilirubin AST ALT Alkaline Phosphatase Total Protein Albumin Globulin Albumin/Globulin Ratio Nasal Screen MRSA (PCR) Negative Influenza Type A (PCR) Neg for Influ A Influenza Type B (PCR) Neg for Influ B 09/13/19 09/13/19 09/13/19 05:38 05:38 05:38 WBC 11.86 H RBC 2.51 L Hgb 7.8 L Hct 24.3 L MCV 96.8 MCH 31.1 MCHC 32.1 RDW Std Deviation 55.2 H RDW Coeff of Miryam 15.5 H Plt Count 208 MPV 9.9 Sodium 136 Potassium 5.0 D Chloride 104 Carbon Dioxide 25 Anion Gap 7.0 BUN 36 H Creatinine 1.78 H D Est Cr Clr Drug Dosing 28.5 Est GFR ( Amer) 40.3 Est GFR (Non-Af Amer) 34.8 BUN/Creatinine Ratio 20.0 Glucose 128 H POC Glucose Estimat Average Glucose 146 Hemoglobin A1c 6.7 H Calcium 9.5 Total Bilirubin 0.4 AST 20 ALT 16 Alkaline Phosphatase 63 Total Protein 6.4 Albumin 1.9 L Globulin 4.5 H Albumin/Globulin Ratio 0.4 L Nasal Screen MRSA (PCR) Influenza Type A (PCR) Influenza Type B (PCR) PG Care Time/CCT Total # of Minutes Spent Total Time Spent with Patient: Total time spent is greater than 50% in coordination of care (as documented) at patient's floor/unit and/or counseling patient: (1) Rheumatoid arthritis Rheumatoid arthritis location: unspecified site Rheumatoid factor presence: w ith rheumatoid factor Qualified Code(s): M05.9 - Rheumatoid arthritis with rheumatoid factor, unspecified (2) Type II diabetes mellitus Diabetes mellitus complication status: without complication Diabetes mellitus intermediate insulin use: with local company intermodal truck driver use Qualified Code(s): E11.9 - Type 2 diabetes mellitus without complications; Z79.4 - care home (current) use of insulin (3) Coronary artery disease Associated angina: without angina Coronary Disease-Associated Artery/Lesion type: [place] artery [place] vs. transplanted heart: council heart Qualified Code(s): I25.10 - Atherosclerotic heart disease of council coronary artery without angina pectoris (4) Squamous cell carcinoma of lung, stage IV Laterality: right Qualified Code(s): C34.91 - Malignant neoplasm of unspecified part of right bronchus or lung (5) Dysphagia Dysphagia type: unspecified Qualified Code(s): R13.10 - Dysphagia, unsp ecified (6) CKD (chronic kidney disease) Chronic kidney disease stage: stage 3 (moderate) Qualified Code(s): N18.3 - Chronic kidney disease, stage 3 (moderate) (7) RLL pneumonia Pneumonia type: aspiration pneumonia Aspiration pneumonia type: due to regurgitated food Qualified Code(s): J69.0 - Pneumonitis due to inhalation of food and vomit (8) GERD (gastroesophageal reflux disease) Esophagitis presence: esophagitis presence not specified Qualified Code(s): K21.9 - Gastro-esophageal reflux disease without esophagitis (9) Anemia Anemia type: other cause Other causes of anemia: other cause, not classified Qualified Code(s): D64.89 - Other specified anemias
--- NOTE | 2019-09-13 19:36 | Emergency Department Note ---
Entered by Stacey Barros acting as a scribe for History of Present Illness General Chief complaint: Shortness of Breath/Dyspnea Time Seen by Provider: 09/12/19 13:59 Source: patient History of Present Illness Onset (ago): day(s) 3 Location: chest Pain Consistency: + other (worsening) Maximum Pain Intensity: 4 Quality: + other (shortness of breath) Associated symptoms: + denies other symptoms (dizziness), + fever/chills (Positive chills. Negative fever.), + weakness and + other (falling, trouble swallowing, right sided back/rib pain); no cough, no headaches and no syncope The patient is an 84 year old male who presents to the Emergency Room with complaints of worsening shortness of breath starting 3 days ago. The patient states that he has a history of lung cancer and had a resection of his right lower lobe in October of last year. He states that in January and February of this year he had chemo. He reports that things were going well over the summer and then he started having some shortness of breath again. He states that the went back to his oncologist who told him the cancer was back and started him on Keytruda 2 weeks ago. The patient states that since then he has had weakness with increased falls, including hitting his head in these falls. He notes that over the last few days he has had worsening shortness of breath with pain on inspiration on his right side. The patient complains of trouble swallowing, chills, and right sided back/rib pain. He notes that at first his difficulty s wallowing was just with solids, but more recently has been with liquids as well. The patient denies dizziness, headache, syncope, cough, and fever. Home Medications Home Medications Medication Instructions Recorded Confirmed Type Calcium 600 + D(3) 1 tab PO QAM 09/03/18 09/12/19 History albuterol sulfate [ProAir HFA] 2 puff INHALATION Q6H PRN 09/03/18 09/12/19 History allopurinol 300 mg PO QAM 09/03/18 09/12/19 History aspirin [Aspir-81] 81 mg PO HS 09/03/18 09/12/19 History cholecalciferol (vitamin D3) 2,000 units PO HS 09/03/18 09/12/19 History folic acid 400 mcg PO QAM 09/03/18 09/12/19 History metoprolol tartrate 25 mg PO BID 09/03/18 09/12/19 History multivitamin [Multiple Vitamins] 1 tab PO QAM 09/03/18 09/12/19 History omega-3 fatty acids-fish oil [Fish 1 cap PO BID 09/03/18 09/12/19 History Oil] prednisone 5 mg PO HS 09/03/18 09/12/19 History acetaminophen [Tylenol Extra 1,000 mg PO Q6H PRN 11/07/18 09/12/19 History Strength] docusate sodium 100 mg PO BID 05/30/19 09/12/19 History simvastatin 40 mg PO HS 05/30/19 09/12/19 History gabapentin 300 mg capsule 900 mg PO HS cap 06/11/19 09/12/19 History lidocaine [Lidoderm] 1 patch TOPICAL DAILY PRN 08/14/19 09/12/19 History pembrolizumab [Keytruda] 0 mg IV UD 09/12/19 09/12/19 History sitagliptin [Januvia] 100 mg PO QAM 09/12/19 09/12/19 History Allergies Allergy/AdvReac Type Severity Reaction Status Date / Time metformin [From Glucophage] AdvReac Intermediate Diarrhea Verified 08/14/19 09:37 Past Med/Surg History Medical History 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 MIN monitoring - reports no surgical intervention needed at present time Chronic obstructive pulmonary disease Coronary artery disease Deep vein thrombosis > 30 years ago - treated - LEG UNKNOWN CAUSE Dizziness HAVING SOME DIZZY EPISODES AND HAD FALLEN AND HAD STITCHES IN HAND AND WAS REMOVED 11/07/18 Gout Hyperlipidemia Hypertension Lung cancer S/P R Thoracoscopy and R Lower Lobectomy with portion of [address] Arcos 10/09/18 Surgical History History of arthroscopy (Acute) LEFT SHOULDER History of heart artery stent (Acute) 1999 ONE STENT, 2001 TWO STENTS FOLLOWS WITH DR MIN History of Mohs micrographic surgery for skin cancer History of cardiac cath x 3 1999 - cp - 1 stent placed - [facility] [place] - follows w/ dr. lozada 03/2002 - [place] - 1 stent placed - [facility] [place] 06/2002 - reason? - 1 stent placed - [facility] [place] History of cataract surgery RIGHT AND LEFT History of lobectomy of lung RIGHT LUNG AND THOROSCOPY History of surgery TRANSURETHRAL RESECTION OF BLADDER TUMOR Hx of colonoscopy Family History Mother Diabetes Other No significant family history Social History Preferred Language: Syriac Communication Ability: Effective Visual Impairment: No Limitations Hearing Ability: Normal Hydrogen Plant Operator Required: No Beliefs That Will Affect Care: None marital status: Current Living Situation: Spouse Current Living Situation Comment: and granddaughter and great grandchildren current occupational status: retired Feels Safe at Home: Yes Safety Concerns: Feels Safe At This Time Smoking Status: Former smoker Tobacco Type: cigarettes ; Cigarettes Per Day: 1/2 ppd ; Smoking End Date: 10/05/2018 ; Second Hand Exposure: No ; Hx Alcohol Use: Yes Alcohol type: hard liquor Hx Substance Use: No Childhood Exposure to Second-Hand Smoke: Yes Dental Care, Regularly: Yes Physical Activity Frequency: 1-2 Times per Week Seatbelt Use: always Sunscreen Use: No Review of Systems See HPI for pertinent positives & negatives. and A total of 10 systems reviewed and were otherwise negative Physical Exam Vital Signs Vital Signs - 24 hr 09/12/19 13:24 09/12/19 14:18 09/12/19 14:48 Temperature 36.9 C Temperature Source Oral Sepsis Recent Fever Within 48 Hours Yes Sepsis New/Unexplained Change in Mental Status No Sepsis Action Taken by Nursing No Action Required Pulse Rate 78 Pulse Rate [Right Finger] 72 Pulse Rhythm Regular Pulse Strength Normal Respiratory Rate 19 17 Respiratory Effort / Characteristics Spontaneous Non-Labored Spontaneous Respiratory Depth Normal Respiratory Pattern Regular Blood Pressure 149/64 H Blood Pressure Mean 92 Pulse Oximetry 99 99 97 Oxygen Delivery Method Room Air Room Air Room Air GENERAL: Awake, alert, cachectic appearing, in no acute distress. Rigors on exam. HENT: Normocephalic, atraumatic. Oropharynx unremarkable. EYES: Normal conjunctiva. Sclera non-icteric. NECK: Supple. No nuchal rigidity. FROM. No JVD. RESPIRATORY: Decreased breath sounds. CARDIAC: Regular rate, normal rhythm. Extremities warm and well perfused. Pulses equal. ABDOMEN: Soft, non-distended. No tenderness to palpation. No rebound or guarding. No masses. RECTAL: Deferred. MUSCULOSKELETAL: Chest examination reveals no tenderness. Port in right chest wall. The back is symmetrical on inspection without obvious abnormality. There is no CVA tenderness to palpation. No joint edema. LOWER EXTREMITIES: Calves are equal size bilaterally and non-tender. No edema. No discoloration. NEURO: Normal sensorium. No sensory or motor deficits noted. SKIN: No rash or jaundice noted. Course 1357: The patient was evaluated in room B6 by the resident, Juliana Vicente. A complete history and physical exam was performed. 1447: The patient was evaluated in room B6 by me. A complete history and physical exam was performed. 1545: The resident reevaluated the patient and updated him on his results thus far. He states that his shortness of breath is the same and he never got anything for pain so his pain is the same as well. 1617: I reevaluated the patient and updated him on his test results. I discussed the treatment plan with him. He verbally agrees and understands. 1621: The resident discussed the patient's case with Dr. Schroeder- [facility] Hospitalist. He will evaluate the patient for further management. Administered Medications Allopurinol (Zyloprim) 300 mg PO QAM SARY Stop: 10/13/19 08:59 Last Admin: 09/13/19 08:20 Dose: 300 mg Documented by: [id number] Aspirin (Ecotrin Ectab) 81 mg PO HS ASRY Stop: 10/12/19 20:59 Last Admin: 09/12/19 21:20 Dose: 81 mg Documented by: [id number] Docusate Sodium (Colace) 100 mg PO BID [facility] Stop: 10/12/19 20:59 Last Admin: 09/13/19 08:19 Dose: 100 mg Documented by: [id number] Admin: 09/12/19 21:22 Dose: 100 mg Documented by: [id number] Fentanyl (Duragesic) 12 mcg TD Q3D [facility] Stop: 09/27/19 15:59 Last Admin: 09/13/19 17:49 Dose: 12 mcg Documented by: [id number] Fish Oil (Yellow Spring-3 (Purified Fish Oil)) 1 gm PO BID SARY Stop: 10/12/19 20:59 Last Admin: 09/13/19 08:20 Dose: 1 gm Documented by: [id number] Admin: 09/12/19 21:20 Dose: 1 gm Documented by: [id number] Folic Acid (Folvite) 400 mcg PO QAM SARY Stop: 10/13/19 08:59 Last Admin: 09/13/19 08:19 Dose: 400 mcg Documented by: [id number] Gabapentin (Neurontin) 900 mg PO HS [facility] Stop: 10/12/19 20:59 Last Admin: 09/12/19 21:19 Dose: 900 mg Documented by: [id number] Heparin Sodium (Porcine) (Heparin Sodium (Porcine)) 5,000 units SQ Q8 [facility]ARY Stop: 10/12/19 21:59 Last Admin: 09/13/19 13:51 Dose: Not Given Documented by: [id number] Admin: 09/13/19 05:53 Dose: Not Given Documented by: [id number] Admin: 09/12/19 21:30 Dose: Not Given Documented by: [id number] Sodium Chloride (Nss 1000ml) 1,000 mls @ 80 mls/hr IV .[id number] [facility] Stop: 10/12/19 20:11 Last Admin: 09/13/19 12:25 Dose: 125 mls/hr Documented by: [id number] Infusion: 09/13/19 12:25 Dose: 125 mls/hr Documented by: [id number] Admin: 09/13/19 04:10 Dose: 125 mls/hr Documented by: [id number] Infusion: 09/13/19 04:10 Dose: 125 mls/hr Documented by: [id number] Admin: 09/12/19 20:42 Dose: 125 mls/hr Documented by: [id number] Piperacillin Sod/Tazobactam (Sod 3.375 gm/ Dextrose) 115 mls @ 28.75 mls/hr IV Q8H SARY; Protocol Stop: 09/20/19 00:00 Last Admin: 09/13/19 17:49 Dose: 28.8 mls/hr Documented by: [id number] Infusion: 09/13/19 13:53 Dose: 0 mls/hr Documented by: [id number] Admin: 09/13/19 08:16 Dose: 28.8 mls/hr Documented by: [id number] Infusion: 09/13/19 03:34 Dose: 0 mls/hr Documented by: [id number] Admin: 09/12/19 23:49 Dose: 28.8 mls/hr Documented by: [id number] Methylprednisolone 40 mg/ (Syringe) 0.64 mls @ 1.5 mls/min IV DAILY SARY Stop: 10/13/19 10:29 Last Admin: 09/13/19 10:42 Dose: 1.5 mls/min Documented by: [id number] Insulin Aspart (Novolog Flexpen) 0 units SC ACHS [facility]ARY Stop: 10/12/19 20:59 Last Admin: 09/13/19 17:36 Dose: Not Given Documented by: [id number] Cosigned by: [id number] Admin: 09/13/19 12:29 Dose: Not Given Documented by: [id number] Cosigned by: [id number] Admin: 09/13/19 08:06 Dose: Not Given Documented by: [id number] Cosigned by: [id number] Admin: 09/12/19 21:45 Dose: Not Given Documented by: [id number] Cosigned by: [id number] Metoprolol Tartrate (Lopressor) 25 mg PO BID [facility]ARY Stop: 10/12/19 20:59 Last Admin: 09/13/19 08:19 Dose: 25 mg Documented by: [id number] Admin: 09/12/19 21:19 Dose: 25 mg Documented by: [id number] Miscellaneous (Remove Lidoderm Patch) 1 ea N/A DAILY@2100 [facility] Stop: 10/12/19 20:59 Last Admin: 09/12/19 21:20 Dose: Not Given Documented by: [id number] Miscellaneous (Fentanyl Patch Check Placement) 1 ea N/A QS [facility] Stop: 10/13/19 15:59 Last Admin: 09/13/19 17:49 Dose: 1 ea Documented by: [id number] Multivitamins (Multivitamin Tab) 1 tab PO QAM SARY Stop: 10/13/19 08:59 Last Admin: 09/13/19 08:20 Dose: 1 tab Documented by: [id number] Multivitamins/Minerals (Caltrate Plus) [facility] Stop: 10/13/19 08:59 Last Admin: 09/13/19 08:18 Dose: 1 tab Documented by: [id number] Prednisone (Prednisone) 5 mg PO [facility] Stop: 10/12/19 20:59 Last Admin: 09/12/19 21:19 Dose: 5 mg Documented by: [id number] Simvastatin (Zocor) 40 mg PO [facility] Stop: 10/12/19 20:59 Last Admin: 09/12/19 21:21 Dose: 40 mg Documented by: [id number] Sitagliptin Phosphate (Januvia) 100 mg PO [facility] Stop: 10/13/19 08:59 Last Admin: 09/13/19 08:19 Dose: 100 mg Documented by: [id number] Vitamin D (Vitamin D3) 2,000 units PO [facility] Stop: 10/12/19 20:59 Last Admin: 09/12/19 21:21 Dose: 2,000 units Documented by: [id number] Discontinued Medications Albuterol (Duoneb) 3 ml INH NOW STA Stop: 09/12/19 14:33 Last Admin: 09/12/19 14:47 Dose: 3 ml Documented by: [id number] Hydromorphone HCl (Dilaudid) 0.5 mg IV NOW STA Stop: 09/12/19 15:37 Last Admin: 09/12/19 16:09 Dose: 0.5 mg Documented by: [id number] Acetaminophen (Ofirmev) 1,000 mg in 100 mls @ 400 mls/hr IV NOW STA Stop: 09/12/19 15:06 Last Infusion: 09/12/19 16:30 Dose: 0 mls/hr Documented by: [id number] Admin: 09/12/19 16:08 Dose: 400 mls/hr Documented by: [id number] Ondansetron HCl (Zofran) 8 mg in 54 mls @ 216 mls/hr IV NOW STA Stop: 09/12/19 15:06 Last Infusion: 09/12/19 18:24 Dose: 0 mls/hr Documented by: [id number] Admin: 09/12/19 16:33 Dose: 216 mls/hr Documented by: [id number] Piperacillin Sod/Tazobactam Sod (Zosyn) 4.5 gm in 120 mls @ 240 mls/hr IV NOW ONE Stop: 09/12/19 16:36 Last Infusion: 09/12/19 18:37 Dose: 0 mls/hr Documented by: [id number] Admin: 09/12/19 17:59 Dose: 240 mls/hr Documented by: [id number] Levofloxacin/Dextrose (Levaquin/D5w) 750 mg in 150 mls @ 100 mls/hr IV Q24H [facility]ARY Stop: 09/19/19 16:14 Last Infusion: 09/12/19 20:17 Dose: 0 mls/hr Documented by: [id number] Admin: 09/12/19 18:36 Dose: 100 mls/hr Documented by: [id number] Sodium Chloride (Nss 1000ml) 250 mls @ 999 mls/hr IV .Q16M ONE Stop: 09/12/19 18:15 Last Infusion: 09/12/19 18:23 Dose: 0 mls/hr Documented by: [id number] Admin: 09/12/19 18:01 Dose: 999 mls/hr Documented by: [id number] Sodium Chloride (Nss 1000ml) 250 mls @ 999 mls/hr IV .Q16M ONE Stop: 09/12/19 17:50 Last Infusion: 09/12/19 18:24 Dose: 0 mls/hr Documented by: [id number] Admin: 09/12/19 18:00 Dose: 999 mls/hr Documented by: [id number] Sodium Chloride (Nss 1000ml) 500 mls @ 500 mls/hr IV .Q1H ONE Stop: 09/12/19 22:00 Last Infusion: 09/12/19 22:42 Dose: 0 mls/hr Documented by: [id number] Admin: 09/12/19 21:30 Dose: 500 mls/hr Documented by: [id number] Medical Decision Making Differential Diagnosis Differential diagnoses includes but is not limited to pneumonia, bronchitis, COPD/Asthma exacerbation, pneumothorax, pulmonary embolism, congestive heart failure, acute coronary syndrome Medical Records Attestation: I reviewed the patient's medical records. Home Medications Current Medication List: was personally reviewed by me Laboratory Data Attestation: I reviewed the patient's lab results. Result diagrams: 09/13/19 05:38 09/13/19 05:38 Lab Results 09/12/19 09/12/19 09/12/19 Range/Units 14:53 14:53 14:53 WBC 12.02 H (4.8-10.8) K/uL RBC 3.01 L (4.7-6.1) M/uL Hgb 9.1 L (14.0-18.0) g/dL POC Hgb (14.0-18.0) g/dl Hct 28.6 L (42-52) % POC Hct (42-52) % MCV 95.0 (80-100) fL MCH 30.2 (25-34) pg MCHC 31.8 L (32-36) g/dL RDW Std Deviation 52.3 H (36.4-46.3) fL RDW Coeff of Miryam 15.2 H (11.5-14.5) % Plt Count 251 (130-400) K/uL MPV 10.0 (7.4-10.4) fL Immature Gran % (Auto) 0.5 % Neut % (Auto) 75.2 % Lymph % (Auto) 15.1 % [place] % (Auto) 5.7 % Eos % (Auto) 3.3 % Baso % (Auto) 0.2 % Immature Gran # (Auto) 0.06 H (0.00-0.02) K/uL Neut # (Auto) 9.05 H (1.4-6.5) K/uL Lymph # (Auto) 1.81 (1.2-3.4) K/uL [place] # (Auto) 0.68 H (0.11-0.59) K/uL Eos # (Auto) 0.40 (0-0.5) K/uL Baso # (Auto) 0.02 (0-0.2) K/uL PT 11.6 (9.0-12.0) Seconds INR 1.1 (0.9-1.1) APTT 29.0 (21.0-31.0) Seconds PTT Ratio 1.1 POC Sodium (135-144) mEq/L Sodium 135 L (136-145) mmol/L POC Potassium (3.3-5.0) mEq/L Potassium 4.0 (3.5-5.1) mmol/L POC Chloride (101-112) mEq/L Chloride 103 (98-107) mmol/L Carbon Dioxide 27 (21-32) mmol/L POC Total CO2 (24-31) mEq/l Anion Gap 5.0 (3-11) POC Anion Gap (16-25) mmol/L POC BUN (7-18) mg/dl BUN 31 H (7-18) mg/dl Creatinine 1.39 (0.6-1.4) mg/dl POC Creatinine (0.6-1.3) mg/dl Est Cr Clr Drug Dosing 37.6 ml/min Est GFR ( Amer) 54.3 Est GFR (Non-Af Amer) 46.9 BUN/Creatinine Ratio 22.6 H (10-20) Glucose 150 H (70-99) mg/dl POC Glucose (other) (70-99) mg/dl Calcium 10.2 H (8.5-10.1) mg/dl POC Ioniz Calcium Elle (1.12-1.32) mmol/l Total Bilirubin 0.5 (0.2-1) mg/dl AST 24 (15-37) U/L ALT 19 (12-78) U/L Alkaline Phosphatase 71 (45-117) U/L CK-MB (CK-2) 1.6 (0.5-3.6) ng/ml Troponin I 0.024 (0-0.045) ng/ml Total Protein 7.4 (6.4-8.2) gm/dl Albumin 2.3 L (3.4-5.0) gm/dl Globulin 5.1 H (2.5-4.0) gm/dl Albumin/Globulin Ratio 0.5 L (0.9-2) Lipase 156 (73-393) U/L 09/12/19 Range/Units 14:57 WBC (4.8-10.8) K/uL RBC (4.7-6.1) M/uL Hgb (14.0-18.0) g/dL POC Hgb 8.8 L (14.0-18.0) g/dl Hct (42-52) % POC Hct 26 L (42-52) % MCV (80-100) fL MCH (25-34) pg MCHC (32-36) g/dL RDW Std Deviation (36.4-46.3) fL RDW Coeff of Miryam (11.5-14.5) % Plt Count (130-400) K/uL MPV (7.4-10.4) fL Immature Gran % (Auto) % Neut % (Auto) % Lymph % (Auto) % [place] % (Auto) % Eos % (Auto) % Baso % (Auto) % Immature Gran # (Auto) (0.00-0.02) K/uL Neut # (Auto) (1.4-6.5) K/uL Lymph # (Auto) (1.2-3.4) K/uL [place] # (Auto) (0.11-0.59) K/uL Eos # (Auto) (0-0.5) K/uL Baso # (Auto) (0-0.2) K/uL PT (9.0-12.0) Seconds INR (0.9-1.1) APTT (21.0-31.0) Seconds PTT Ratio POC Sodium 137 (135-144) mEq/L Sodium (136-145) mmol/L POC Potassium 4.0 (3.3-5.0) mEq/L Potassium (3.5-5.1) mmol/L POC Chloride 100 L (101-112) mEq/L Chloride (98-107) mmol/L Carbon Dioxide (21-32) mmol/L POC Total CO2 27 (24-31) mEq/l Anion Gap (3-11) POC Anion Gap 15.0 L (16-25) mmol/L POC BUN 29 H (7-18) mg/dl BUN (7-18) mg/dl Creatinine (0.6-1.4) mg/dl POC Creatinine 1.4 H (0.6-1.3) mg/dl Est Cr Clr Drug Dosing ml/min Est GFR ( Amer) Est GFR (Non-Af Amer) BUN/Creatinine Ratio (10-20) Glucose (70-99) mg/dl POC Glucose (other) 148 H (70-99) mg/dl Calcium (8.5-10.1) mg/dl POC Ioniz Calcium Elle 1.34 H (1.12-1.32) mmol/l Total Bilirubin (0.2-1) mg/dl AST (15-37) U/L ALT (12-78) U/L Alkaline Phosphatase (45-117) U/L CK-MB (CK-2) (0.5-3.6) ng/ml Troponin I (0-0.045) ng/ml Total Protein (6.4-8.2) gm/dl Albumin (3.4-5.0) gm/dl Globulin (2.5-4.0) gm/dl Albumin/Globulin Ratio (0.9-2) Lipase (73-393) U/L Imaging Data Radiologist's Impression: Radiology results as stated below per my review and the radiologist's interpretation: XR chest 1V portable CLINICAL HISTORY: 84 years-old Male presenting with Chest Pain. TECHNIQUE: Portable upright AP view of the chest was obtained. COMPARISON: 05/30/2019. FINDINGS: The patient is slightly ZAC rotated. Right subclavian Mediport terminates at the superior cavoatrial junction. Few mediastinal surgical clips noted. Atherosclerosis and prominence of the thoracic aorta. Cardiac silhouettes mildly enlarged as on prior. Mild elevation of the right hemidiaphragm with slightly lower lung volume on the right in comparison to the left though the appearance is probably exaggerated due to ZAC rotation. Postsurgical changes of several posterior right ribs. A suture margin is noted in the lower right lung. Trace right pleural thickening or pleural effusion similar to prior. No new focal opac ity. No large effusion or pneumothorax. Degenerative changes of the spine. Possible osteopenia. Upper abdomen normal. IMPRESSION: 1. Postsurgical changes of the right lung. 2. No acute cardiopulmonary disease. 3. Mild cardiomegaly. No evidence of volume overload or congestive change. Electronically signed by: Chacho England M.D. 09/12/2019 3:[address] head/brain wo con CLINICAL HISTORY: 84 years-old Male presenting with fall head trauma. TECHNIQUE: Multidetector CT imaging of the head was performed without the use of intravenous contrast. IV contrast: None. One or more dose lowering techniques were used consistent with the principles of ALARA (as low as reasonably achievable), including automatic exposure control, mA or kV adjustment to i ndividual patient size, and/or use of iterative reconstruction. COMPARISON: 10/26/2018. CT DOSE (mGy.cm): The estimated cumulative dose is 1124.21. FINDINGS: Customer Retention Specialist topogram: Unremarkable. Proportional ventricular and sulcal prominence, likely age-related parenchymal volume loss. No hemorrhage. Periventricular and subcortical white matter hypoattenuation, nonspecific but likely indicative of chronic small vessel ischemic change. No acute territorial infarct. No mass effect or midline shift. No extra-axial fluid collection. Trace air-fluid level in the left maxillary sinus. Calvarium intact. Intracranial atherosclerosis noted. IMPRESSION: 1. Chronic small vessel ischemic change. No acute intracranial abnormality. Electronically signed by: Chacho England M.D. 09/12/2019 3:[address] ANGIOGRAM OF THE CHEST; CT SCAN OF THE THORACIC SPINE WITHOUT IV CONTRAST CLINICAL HISTORY: Dyspnea. Back pain. Lung cancer. COMPARISON STUDY: Chest CT scans dated 09/03/2018 and 07/05/2019. TECHNIQUE: Following the IV administration of 116 cc of Optiray 320, CT angiogram of the chest was performed from the upper abdomen to the thoracic inlet utilizing the pulmonary embolus protocol. Additionally, CT scan of the thoracic spine is performed from the lower cervical spine to the upper lumbar spine. Images for both examinations are reviewed in the axial, sagittal, and coronal planes. 3-D MIPS images are created and assessed. IV contrast was administered without complication. A dose lowering technique was utilized adhering to the principles of ALARA. CT DOSE: 1124.21 mGycm FINDINGS: Thyroid: Imaged portions of the thyroid gland are normal in size and attenuation. Thoracic aorta: There is atherosclerotic calcification of the thoracic aorta, wh ich is normal in caliber and demonstrates standard 3-vessel arch anatomy. No dissection is seen. Pulmonary vasculature: The pulmonary trunk is normal in caliber. There are no filling defects identified in main, lobar, or segmental pulmonary branches to suggest pulmonary embolus. Heart: A right internal jugular central venous infusion port is in place. The heart is enlarged and without pericardial effusion. The coronary arteries are densely calcified. Lungs and pleural spaces: Emphysematous change is again noted. Again seen is postoperative change from right lower lobe resection. The trachea and central airways are clear. Pleural fluid and parenchymal scarring are again seen at the right lung base. Patchy groundglass consolidation is seen at the right lung base. There is a 3.7 x 2.8 centimeter lesion in the right lower lobe adjacent to the suture margin seen on image #132. This has increased in size from 07/05/2019. There is abnormal soft tissue in the right paramediastinal and paravertebral region seen on images #219 (measuring approximately 3.5 x 1.5 cm) and #201 (measuring approximately 3 x 2 cm). There is a new subpleural lesion in the anterior right lung seen on image #161. This measures 2.3 x 2.0 cm and has also increased in size from previous. There is compensatory hyperinflation of the left lung. Dependent patchy airspace consolidation is noted within the left lung. There is no left pleural effusion. Mediastinum: There are are mildly enlarged mediastinal lymph nodes. AP window nodes measure up to 12 mm in short axis. A subcarinal node measures 15 mm in short axis. [place]reen: Clear. Axillae: There is no axillary lymphadenopathy. Upper abdomen: Partially visualized upper abdominal viscera is within normal limits. Skeletal structures: The skeletal structures are osteopenic. See below for dedicated assessment of the thoracic spine. No lytic or blastic bony lesions are seen. Several of the right posterior ribs are surgically absent. THORACIC SPINE: Vertebral body height and alignment are maintained throughout the thoracic spine. There is no evidence of fracture or malalignment. Anterior and lateral marginal osteophytes are seen throughout. The transverse and spinous processes are intact. The disc spaces are preserved. There is mild multilevel degenerative disc space narrowing. Posterior disc osteophyte complexes are seen at T9-T10, T10-T11, and T11-T12. There is no CT evidence of large disc herniation or high-grade central canal stenosis by CT. The paraspinous soft tissues are normal in appearance. IMPRESSION: 1. There is no evidence of pulmonary embolus in the main, lobar, or segmental pulmonary arteries. 2. Cardiomegaly, emphysema, and postoperative change from right lower lobe resection. 3. No acute bony abnormality is seen involving the thoracic spine. 4. There is patchy groundglass consolidation at the right lung base. Patchy consolidation is also seen dependently within the left lung. Correlate clinically for evidence of pneumonia/aspiration pneumonitis. 5. There is evidence of progressive metastatic disease throughout the right lung as compared to 07/05/2019 as detailed above. 6. Additional findings as above. Electronically signed by: Ulises Arrieta M.D. 09/12/2019 3:47 PM ECG Data Attestation: I personally reviewed and interpreted this ECG as follows: Indication: + SOB/dyspnea Rate (beats per minute): 73 Rhythm: + sinus rhythm ECG Intervals/blocks: + First degree AV block and + Right Bundle branch block ECG Findings: + Other (old inferior infarct, QT-c 462) Blood Pressure Blood Pressure Findings: Elevated blood pressure Blood Pressure Disposition: further management by hospitalist MDM Narrative This is an 84-year-old male who presents emergency department complaining of difficulty swallowing solids as well as liquids. The patient appears to have aspiration pneumonia on CAT scan of the chest. I did discuss his case with the hospitalist service who agreed to admit the patient. Patient does have an elevation his white blood cell count 11.86 he was started on Zosyn Levaquin as well as vancomycin. He was also given an hour-long breathing treatment. Patient was in agreement with the treatment plan. Impression & Plan Squamous cell carcinoma of lung, stage IV, RLL pneumonia, CKD (chronic kidney disease), Leukocytosis Discharge Plan Visit Data *Final* Discharge Date/Time: 09/12/19 19:08 Chief Complaint: Shortness of Breath/Dyspnea ED Provider: Bobby Agosto ED Midlevel Provider: Juliana Vicente Discharge Problem: Squamous cell carcinoma of lung, stage IV, RLL pneumonia, CKD (chronic kidney disease), Leukocytosis Patient Disposition: Admitted As Inpatient Discharge Instructions Interventions: ED Discharge Assessment Last Done: 09/12/19 19:08 The scribe's documentation has been prepared under my direction and personally reviewed by me in its entirety. I confirm that the note above accurately reflects all work, treatment, procedures, and medical decision making performed by me.
[2019-09-13] MEDS ORDERED: PANTOprazole 40 MG TAB PO SCH (21:00)
[2019-09-14] MEDS: HEPARIN SOD 5,000 UNIT/0.5 ML VIAL SQ SCH ×3 (05:17→20:54)
[2019-09-14 06:14] LABS: Hematocrit (blood only) 25.1 % (42-52); Hemoglobin 8.2 g/dL (14.0-18.0); Mean Corpuscular Hemoglobin 31.1 pg (25-34); Mean Corpuscular Hgb Conc 32.7 g/dL (32-36); Mean Corpuscular Volume 95.1 fL (80-100); Mean Platelet Volume 10.3 fL (7.4-10.4); Platelet Count 222 K/uL (130-400); RDW Coefficient of Variation 15.5 % (11.5-14.5); RDW Standard Deviation 54.1 fL (36.4-46.3); Red Blood Count 2.64 M/uL (4.7-6.1); White Blood Count 13.27 K/uL (4.8-10.8)
[2019-09-14 06:54] LABS: BUN Creatinine Ratio 18.5 (10-20); Calcium 9.6 mg/dl (8.5-10.1); Creatinine Clr Calc Pharmacy 23.2 ml/min; Est GFR (Non-African American) 26.8; Potassium 4.5 mmol/L (3.5-5.1)
[2019-09-14] MEDS: PIPERACILLIN/TAZOBACTAM 3.375 GM in DEXTROSE 5% 100 ML IV SCH ×2 (08:56→20:51)
[2019-09-14] MEDS: CHECK FENTANYL PATCH PLACEMENT SCH ×2 (08:57→15:44)
[2019-09-14] MEDS: methylPREDNISolone 40 MG in SYRINGE 0 ML IV SCH (08:58)
[2019-09-14] MEDS: NYSTATIN SUSP 500,000 U/5 ML UDC PO SCH ×4 (09:01→20:51)
[2019-09-14] MEDS: INSULIN ASPART 100 UNITS/ML 3 ML PEN SC SCH ×4 (09:11→21:40)
[2019-09-14] MEDS: SODIUM CHLORIDE 0.9% 1000ML 1,000 ML IV SCH (12:36)
[2019-09-14] MEDS ORDERED: LEVOFLOXACIN/D5W 750 MG/150 ML BAG IV SCH (18:00)
--- NOTE | 2019-09-14 23:03 | Hospitalist Progress Note ---
Date of Service September 14, 2019 Assessment & Plan (1) Dysphagia: Appreciate GI and speech consults. s/p barium swallow and video swallow today. I spoke with speech - he aspirated ALL consistencies. Not safe to take anything by mouth. Hold ALL oral medications. STRICT NPO. Cause of dysphagia is uncertain. Subacute stroke? Brain mets from lung cancer? Other? Start with MRI brain. If negative for stroke or brain mets then defer additional w/u to GI (EGD? other testing?). Cont IV H2 usama. Patient is leaning towards hospice. Will monitor. (2) RLL pneumonia: Due to aspiration. Also with mild LLL infiltrates on CT. Stop levaquin. Cont with zosyn. Supportive care. (3) Squamous cell carcinoma of lung, stage IV: Initial site - RLL diagnosed Sep 2018 s/p surgery with RLL lobectomy and partial resection of [address] Arcos then had recurrence current chemotherapy - Keytruda - first round ~3 weeks ago; next scheduled chemo 09/18/[address] Ramirez. referred for palliative radiation to help with pain management but has not started XRT CT this admission with significant progression of disease in right chest (see report) appreciate heme/onc consult appreciate palliative care consult start fentanyl patch 12mcg q72h for cancer-related pain MRI brain ordered today - r/o intracranial mets, stroke, etc very, very poor prognosis still wishes to be full code palliative to cont following (4) Coronary artery disease: -Continue ASA daily. 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 on chronic prednisone 5 mg HS HOLD prednisone give stress dose IV steroids - solumedrol 40mg IV daily starting today (10) Type II diabetes mellitus: a1c 6.7% hold oral agents novolog sliding scale (11) Neuropathy: unfortunately, due to dysphagia and need for NPO status -- holding gabapentin (12) Severe protein-calorie malnutrition: severe weight loss in setting of progressive stage 4 lung ca now with dysphagia and inability to take NPO consider enteral feedings if patient desired (13) GERD (gastroesophageal reflux disease): IV H2 usama (14) Anemia: multifactorial - due to cancer, malnutrition, etc. consider iron studies, b12, folate repeat CBC in am Tx if Hb <7.5 (15) DVT prophylaxis: Heparin TID was updated by phone 09/13/19 - explained dysphagia and today's test results Subjective Patient reports no new symptoms. He states he is unsure if h would like to get a feeding tube. He expresses that he is leaning more towards comfort care, but has not decided. He will think about this tonight. Review of Systems Review of Systems: All systems reviewed & are unremarkable except as noted in HPI & below Physical Exam Physical Exam: Constitutional: + thin and + frail appearing;+ not well nourished, no acute distress and no altered mental status ENMT: external ear and nose normal, oropharynx normal Mouth: + oral mucosal abnormality (?thrush on tongue) and + dry oral mucous membranes Respiratory: no respiratory distress Auscultation: + rales (fine, right base); no wheezes Cardiovascular: RRR, no murmur, no edema Heart Sounds: normal S1 and normal S2 Vessels: + JVD Gastrointestinal (Abdomen): normal bowel sounds, soft, nontender, no hepatosplenomegaly Psychiatric: A+Ox3, euthymic affect Results & Data Vital Signs (Past 12 Hours) Vital Signs Temp Pulse Resp BP Pulse Ox 09/14/19 19:33 36.4 C L 72 20 165/90 H 93 09/14/19 15:09 36.3 C L 54 L 17 156/78 H 93 PG Care Time/CCT Total # of Minutes Spent Total Time Spent with Patient: Total time spent is greater than 50% in coordination of care (as documented) at patient's floor/unit and/or counseling patient: (1) Rheumatoid arthritis Rheumatoid arthritis location: unspecified site Rheumatoid factor presence: with rheumatoid factor Qualified Code(s): M05.9 - Rheumatoid arthritis with rheumatoid factor, unspecified (2) Type II diabetes mellitus Diabetes mellitus complication status: without complication Diabetes mellitus detention insulin use: with detention use Qualified Code(s): E11.9 - Type 2 diabetes mellitus without complications; Z79.4 - residential (current) use of insulin (3) Coronary artery disease Associated angina: without angina Coronary Disease-Associated Artery/Lesion type: [place] artery [place] vs. transplanted heart: [place] heart Qualified Code(s): I25.10 - Atherosclerotic heart disease of [place] coronary artery without angina pectoris (4) Squamous cell carcinoma of lung, stage IV Laterality: unspecified laterality Qualified Code(s): C34.90 - Malignant neoplasm of unspecified part of unspecified bronchus or lung (5) Anemia Anemia type: other cause Other causes of anemia: other cause, not classified Qualified Code(s): D64.89 - Other specified anemias (6) Dysphagia Dysphagia type: unspecified Qualified Code(s): R13.10 - Dysphagia, unspecified (7) CKD (chronic kidney disease) Chronic kidney disease stage: stage 3 (moderate) Qualified Code(s): N18.3 - Chronic kidney disease, stage 3 (moderate) (8) RLL pneumonia Aspiration pneumonia type: due to regurgitated food Pneumonia type: aspiration pneumonia Qualified Code(s): J69.0 - Pneumonitis due to inhalation of food and vomit (9) GERD (gastroesophageal reflux disease) Esophagitis presence: esophagitis presence not specified Qualified Code(s): K21.9 - Gastro-esophageal reflux disease without esophagitis
[2019-09-15] MEDS: CHECK FENTANYL PATCH PLACEMENT SCH ×3 (01:23→15:28)
[2019-09-15] MEDS: SODIUM CHLORIDE 0.9% 1000ML 1,000 ML IV SCH ×2 (01:33→13:56)
[2019-09-15] MEDS: HEPARIN SOD 5,000 UNIT/0.5 ML VIAL SQ SCH ×3 (05:36→22:03)
[2019-09-15 06:11] LABS: Hematocrit (blood only) 25.4 % (42-52); Hemoglobin 8.2 g/dL (14.0-18.0); Mean Corpuscular Hemoglobin 30.5 pg (25-34); Mean Corpuscular Hgb Conc 32.3 g/dL (32-36); Mean Corpuscular Volume 94.4 fL (80-100); Mean Platelet Volume 9.8 fL (7.4-10.4); Platelet Count 205 K/uL (130-400); RDW Coefficient of Variation 15.8 % (11.5-14.5); RDW Standard Deviation 53.9 fL (36.4-46.3); Red Blood Count 2.69 M/uL (4.7-6.1); White Blood Count 18.19 K/uL (4.8-10.8)
[2019-09-15 06:42] LABS: Creatinine Clr Calc Pharmacy 25.9 ml/min; Est GFR (African American) 35.2; Est GFR (Non-African American) 30.4
[2019-09-15] MEDS: PIPERACILLIN/TAZOBACTAM 3.375 GM in DEXTROSE 5% 100 ML IV SCH ×2 (08:42→16:01)
[2019-09-15] MEDS: INSULIN ASPART 100 UNITS/ML 3 ML PEN SC SCH ×4 (09:35→21:04)
[2019-09-15] MEDS: methylPREDNISolone 40 MG in SYRINGE 0 ML IV SCH (11:49)
[2019-09-15] MEDS: NYSTATIN SUSP 500,000 U/5 ML UDC PO SCH ×4 (11:51→20:35)
--- NOTE | 2019-09-15 21:55 | Hospitalist Progress Note ---
Date of Service September 15, 2019 Assessment & Plan (1) Dysphagia: Appreciate GI and speech consults. s/p barium swallow and video swallow today. I spoke with speech - he aspirated ALL consistencies. Not safe to take anything by mouth. Hold ALL oral medications. STRICT NPO. Cause of dysphagia is uncertain. Subacute stroke? Brain mets from lung cancer? Other? MRI negative. May consider GI consult. However, patient is undecided on if he would want peg tube feeding. He will have discussion with his and oncologist. Cont IV H2 usama. Patient is leaning towards hospice but undecided. Will monitor. (2) RLL pneumonia: Due to aspiration. Also with mild LLL infiltrates on CT. Stop levaquin. Cont with zosyn. Supportive care. (3) Squamous cell carcinoma of lung, stage IV: Initial site - RLL diagnosed Sep 2018 s/p surgery with RLL lobectomy and partial resection of [address] Arcos then had recurrence current chemotherapy - Keytruda - first round ~3 weeks ago; next scheduled chemo 09/18/[address] Ramirez. referred for palliative radiation to help with pain management but has not started XRT CT this admission with significant progression of disease in right chest (see report) appreciate heme/onc consult appreciate palliative care consult start fentanyl patch 12mcg q72h for cancer-related pain MRI brain ordered today - r/o intracranial mets, stroke, etc very, very poor prognosis still wishes to be full code palliative to cont following (4) Coronary artery disease: -Continue ASA daily. 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 on chronic prednisone 5 mg HS HOLD prednisone give stress dose IV steroids - solumedrol 40mg IV daily (10) Type II diabetes mellitus: a1c 6.7% hold oral agents novolog sliding scale (11) Neuropathy: unfortunately, due to dysphagia and need for NPO status -- holding gabapen tin (12) Severe protein-calorie malnutrition: severe weight loss in setting of progressive stage 4 lung ca now with dysphagia and inability to take NPO consider enteral feedings if patient desired (13) GERD (gastroesophageal reflux disease): IV H2 usama (14) Anemia: multifactorial - due to cancer, malnutrition, etc. consider iron studies, b12, folate Tx if Hb <7.5 (15) DVT prophylaxis: Heparin TID was updated by phone 09/13/19 - explained dysphagia and today's test results Subjective 84 yo male is still undecided if he wants to have peg tube feedings He currently states that he is not hungry. He denies any discomfort. He reports that he has not had much quality of life for past 2 months. He is not sure if continuing chemotherapy might improve his quality of life. He wants to talk with his oncologist on Monday. Review of Systems Review of Systems: All systems reviewed & are unremarkable except as noted in HPI & below Physical Exam Physical Exam: Constitutional: + thin and + frail appearing;+ not well nour ished, no acute distress and no altered mental status ENMT: external ear and nose normal, oropharynx normal Mouth: + oral mucosal abnormality (?thrush on tongue) and + dry oral mucous membranes Respiratory: no respiratory distress Auscultation: + rales (fine, right base); no wheezes Cardiovascular: RRR, no murmur, no edema Heart Sounds: normal S1 and normal S2 Vessels: + JVD Gastrointestinal (Abdomen): normal bowel sounds, soft, nontender, no hepatosplenomegaly Psychiatric: A+Ox3, euthymic affect Results & Data Vital Signs (Past 12 Hours) Vital Signs Temp Pulse Resp BP Pulse Ox 09/15/19 19:20 36.7 C 57 L 18 171/72 H 90 09/15/19 15:33 36.7 C 64 18 163/78 H 92 PG Care Time/CCT Total # of Minutes Spent Total Time Spent with Patient: Total time spent is greater than 50% in coordination of care (as documented) at patient's floor/unit and/or counseling patient: (1) Dysphagia Dysphagia type: unspecified Qualified Code(s): R13.10 - Dysphagia, unspecified (2) RLL pneumonia Aspiration pneumonia type: due to regurgitated food Pneumonia type: aspiration pneumonia Qualified Code(s): J69.0 - Pneumonitis due to inhalation of food and vomit (3) Squamous cell carcinoma of lung, stage IV Laterality: unspecified laterality Qualified Code(s): C34.90 - Malignant neoplasm of unspecified part of unspecified bronchus or lung (4) Coronary artery disease Coronary Disease-Associated Artery/Lesion type: [place] artery [place] vs. transplanted heart: [place] heart Associated angina: without angina Qualified Code(s): I25.10 - Atherosclerotic heart disease of [place] coronary artery without angina pectoris (5) CKD (chronic kidney disease) Chronic kidney disease stage: stage 3 (moderate) Qualified Code(s): N18.3 - Chronic kidney disease, stage 3 (moderate) (6) Rheumatoid arthritis Rheumatoid arthritis location: unspecified site Rheumatoid factor presence: with rheumatoid factor Qualified Code(s): M05.9 - Rheumatoid arthritis with rheumatoid factor, unspecified (7) Type II diabetes mellitus Diabetes mellitus tank terminal gauger insulin use: with tank terminal gauger use Diabetes mellitus complication status: without complication Qualified Code(s): E11.9 - Type 2 diabetes mellitus without complications; Z79.4 - half-way (current) use of insulin (8) GERD (gastroesophageal reflux disease) Esophagitis presence: esophagitis presence not specified Qualified Code(s): K21.9 - Gastro-esophageal reflux disease without esophagitis (9) Anemia Anemia type: other cause Other causes of anemia: other cause, not classified Qualified Code(s): D64.89 - Other specified anemias
[2019-09-16] MEDS: SODIUM CHLORIDE 0.9% 1000ML 1,000 ML IV SCH ×2 (00:41→15:09)
[2019-09-16] MEDS: CHECK FENTANYL PATCH PLACEMENT SCH ×3 (00:42→16:34)
[2019-09-16] MEDS: PIPERACILLIN/TAZOBACTAM 3.375 GM in DEXTROSE 5% 100 ML IV SCH ×3 (01:09→17:13)
[2019-09-16] MEDS: HEPARIN SOD 5,000 UNIT/0.5 ML VIAL SQ SCH ×3 (05:10→20:43)
[2019-09-16 06:09] LABS: Hemoglobin 8.4 g/dL (14.0-18.0); Mean Corpuscular Hemoglobin 30.7 pg (25-34); Mean Corpuscular Hgb Conc 32.3 g/dL (32-36); Mean Corpuscular Volume 94.9 fL (80-100); Mean Platelet Volume 10.1 fL (7.4-10.4); Platelet Count 209 K/uL (130-400); RDW Coefficient of Variation 15.9 % (11.5-14.5); RDW Standard Deviation 55.3 fL (36.4-46.3); Red Blood Count 2.74 M/uL (4.7-6.1)
[2019-09-16 06:49] LABS: BUN Creatinine Ratio 21.4 (10-20); Creatinine Clr Calc Pharmacy 28.8 ml/min; Est GFR (Non-African American) 34.5; Potassium 4.1 mmol/L (3.5-5.1)
[2019-09-16] MEDS: INSULIN ASPART 100 UNITS/ML 3 ML PEN SC SCH ×4 (08:26→20:42)
[2019-09-16] MEDS: methylPREDNISolone 40 MG in SYRINGE 0 ML IV SCH (08:28)
[2019-09-16] MEDS: NYSTATIN SUSP 500,000 U/5 ML UDC PO SCH ×4 (08:28→20:41)
[2019-09-16] MEDS ORDERED: ALBUT/IPRATROP 3MG/0.5MG NEB 3 ML VIAL NEB STA (13:09)
--- NOTE | 2019-09-16 13:09 | XRay Report ---
XR chest 1V portable CLINICAL HISTORY: 84 years-old Male presenting with SOB. TECHNIQUE: Portable upright AP view of the chest was obtained. COMPARISON: 09/12/2019. FINDINGS: Right subclavian Mediport terminates at the superior cavoatrial junction and has been accessed. Ather osclerosis of the aortic arch. Cardiac silhouette moderately enlarged, worsened from prior. Pulmonary vascular prominence has also worsened from prior. Interval development of extensive right lung opaci ty. Underlying bronchial wall thickening evident. A lesser degree of left perihilar/central opacity i s also nearly present. Moderate right and trace left pleural effusions new from prior. No pneumothora x. Degenerative changes of the thoracic spine. Upper abdomen normal. IMPRESSION: 1. Cardiomegaly with worsened volume overload and congestive change. 2. Significantly asymmetric infiltrates diffusely involving the right lung and mildly involving the perihilar/central left lung. Could represent asymmetric pulmonary edema, however, infection could als o be considered. 3. Moderate right and trace left pleural effusions new from prior. Electronically signed by: Chacho England M.D. 09/16/2019 1:08 PM
[2019-09-16] MEDS ORDERED: FUROSEMIDE 40 MG/4 ML VIAL IV STA (13:23)
[2019-09-16] MEDS ORDERED: FUROSEMIDE 40 MG in SYRINGE 0 ML IV STA (13:29)
[2019-09-16] MEDS: HEPARIN 100 UNIT/ML 5ML FLUSH FLUSH PRN (13:41)
--- NOTE | 2019-09-16 15:00 | Palliative Care Progress Note ---
Date of Service September 16, 2019 Assessment & Plan (1) Goals of care, counseling/discussion: Patient is an 84-year-old male with a past medical history significant for metastatic non-small cell lung cancer-diagnosed in September 2018-status post lobectomy and chemo, no XRT. Patient states that over the last several weeks he has had increased dysphasia with coughing and even choking episodes. This has been increasing in frequency and severity. Patient also notes increased weakness and intermittent fevers at home. Patient was brought to the emergency room on 09/12 and was found to have evidence of aspiration pneumonia/pneumonitis on chest x-ray. Patient is currently on IV antibiotics and Solu-Medrol. He is n.p.o. Patient had a video swallow and barium swallow which showed overt aspiration of all consistencies. Patient has no other focal deficits indicative of CVA. Patient underwent a head CT which was negative. MRI was also done which was negative for any acute changes. Patient's pain control has improved with initiation of the fentanyl patch-he has not required any PRN pain medications. 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 He would not want prolonged heroic measures, patient states his is his healthcare surrogate and that she is aware of his wishes. Did not reinitiate discussion today after prolonged conversation with patient and his regarding feeding tube. Patient has 3 children-other daughter that lives in [place], a son lives in [place] and a daughter who lives near [facility]. Patient currently lives in [place] with his in the same home as his daughter, son-in-law, granddaughter and 2 great-grandchildren. The patient and his have separate living area-however share meals with the rest of the family. Patient does note increased weakness and fatigue. States his pain does not interfere with his sleep but contributes to his decreased activity. Patient was found to have recurrence of his lung cancer-he started on Keytruda 3 weeks ago, his next dose is due on 09/18. Patient was to undergo EBUS -but location of lesion is better accessed by CT-guided biopsy-has not yet been done. Initiated discussion regarding feeding tube as no reversible etiology for his dysphasia can be found. PPS 50%. -CODE STATUS-patient will remain a full code -Goals of care-continue discussion regarding a feeding tube, pain control has improved with fentanyl patch -Dysphasia-for all consistencies, patient is n.p.o. This is a new symptom over the last few months-increasing in frequency and severity. Had prolonged discussion with patient and with pros and cons of a G-tube-they plan to discuss this over the next 1 to 2 days -Metastatic non-small cell lung cancer-now with recurrence-started on Keytruda [address] Ramirez to see patient this afternoon -Pain-improved on fentanyl patch Will continue to follow and assist patient and family with medical decision making. (2) Dysphagia: (3) Squamous cell carcinoma of lung, stage IV: (4) Cancer associated pain: Subjective Met with patient this morning to discuss [id number] pros and cons of a feeding tube given patient's comorbidities and severe dysphasia. Patient requested that I come back and repeat discussion when his was present. Return this afternoon- at bedside. Reviewed patient's current condition regarding aspirating all consistencies, unable to take anything by mouth, discussed pros and cons of feeding tube given patient's current condition and comorbidities. Collaborated with Dr. Ramirez-patient is currently receiving Keytruda only-Dr. Ramirez planning to stop by and see patient later this afternoon. Recommended to both patient and that despite whether or not he decides to have a feeding to-he should consider going home with hospice care. Discussed that quality of life should play a role in his decision making-both patient and report poor quality of life as patient is chair bound at home and unable to do any other things that he enjoys. Patient's pain is adequately controlled with fentanyl-he has not required any PRN Dilaudid. On exam patient appears weaker, voice is soft, easily frustrated when he has to repeat himself. Review of Systems Review of Systems: Patient denies fever, chills, abdominal pain. Positive for increased shortness of breath and urinary frequency Physical Exam Physical Exam: PE: Patient appears comfortable at rest, no acute distress HEENT: EOMI, hearing-mild [place]ET Respiratory: Unlabored at rest, diminished breath sounds on right CV: Tachycardic Abdomen: Not distended Neuro: Alert and oriented x4 Results & Data Vital Signs (Past 12 Hours) Vital Signs Temp Pulse Resp BP BP Pulse Ox 09/16/19 13:39 102 H 20 93 09/16/19 13:00 118 H 30 H 157/91 H 94 09/16/19 11:24 97.5 F L 87 18 154/79 H 97 09/16/19 04:00 97.9 F 73 18 158/78 H 92 PG Care Time/CCT Total # of Minutes Spent Total Time Spent with Patient: Total time spent is greater than 50% in coordination of care (as documented) at patient's floor/unit and/or counseling patient: Prolonged Care Time Prolonged Care Time: Yes Total Prolonged Care Time: 30 Time Spent Attending Total time spent on 2 separate visits is 65 minutes with greater than 50% of time spent at bedside discussing with both patient and pros and cons of feeding tube as well as goals of care. Critical Care Time Prolonged Care Time Prolonged Care Time: Yes Total Prolonged Care Time: 30 65 (1) Dysphagia Dysphagia type: unspecified Qualified Code(s): R13.10 - Dysphagia, unspecified (2) Squamous cell carcinoma of lung, stage IV Laterality: unspecified laterality Qualified Code(s): C34.90 - Malignant neoplasm of unspecified part of unspecified bronchus or lung
[2019-09-16] MEDS: fentaNYL 12 MCG/HR TDSY TD SCH (16:33)
--- NOTE | 2019-09-16 17:19 | Hematology/Oncology Prog Note ---
Date of Service September 16, 2019 Assessment & Plan (1) Squamous cell carcinoma of lung, stage IV: Mr. Bhatia is doing badly. He is very weak and his quality of life is poor. I do not know the explanation for his aspiration issues, but I suspect it is related to his generalized weakness. His MRI did not show any evidence of a stroke and his metastatic disease in his chest would not explain oropharyngeal dysphagia. At this point, given his protein-calorie malnutrition, he would need a feeding tube. Even if he got one, which he doesn't want, there is no guarantee that treating his cancer would make him stronger. Beyond that, less than 50% of patients in his situation have an objective response to Keytruda. Even if he was fortunate enough to see a response, without a reliable way to get him nutrition, he likely would not live long enough to see that response. He told me that he was ready for hospice care. I think that is a totally appropriate next step for him. He agreed and so we will proceed with hospice. I will make his team aware of his decision. He would prefer to do hospice in a facility, due to family concerns. I told him palliative care and case management could help him make the appropriate arrangements starting tomorrow. Present on Admission?: Yes Subjective Mr. Bhatia was seated in bed today. He was in a modest amount of pain, but was comfortable. The dysphagia started relatively recently, though he can't pinpoint any specific moment when it started. He is feeling generally weak everywhere. He reports a poor quality of life and has really struggled recently. He told me he is ready to be done. Review of Systems Review of Systems: All systems reviewed & are unremarkable except as noted in HPI & below Physical Exam Constitutional: + cachectic and comfortable; no acute distress Respiratory: normal respiratory effort, lungs clear to auscultation Cardiovascular: RRR, no murmur, no edema Gastrointestinal (Abdomen): Inspection/Auscultation: normal bowel sounds Percussion/Palpation: abdomen soft; abdomen nontender Skin: no rashes, warm and dry Psychiatric: A+Ox3, euthymic affect Results & Data Vital Signs (Past 12 Hours) Vital Signs Temp Pulse Resp BP BP Pulse Ox 09/16/19 16:02 36.7 C 104 H 20 150/73 H 95 09/16/19 13:39 102 H 20 93 09/16/19 13:00 118 H 30 H 157/91 H 94 09/16/19 11:24 36.4 C L 87 18 154/79 H 97 (1) Squamous cell carcinoma of lung, stage IV Laterality: unspecified laterality Qualified Code(s): C34.90 - Malignant neoplasm of unspecified part of unspecified bronchus or lung
--- NOTE | 2019-09-16 21:16 | Hospitalist Progress Note ---
Date of Service September 16, 2019 Assessment & Plan (1) Dysphagia: - It is uncertain what quickly exacerbated his dysphagia - at this time video swallow shows aspiration with all consistencies - Upon my visit he was still discussing with his about feeding tube vs hospice care - but appears with discussing with Oncology that he may ultimately want hospice in a facility which will discuss tomorrow about comfort feeds - He has strictly been NPO - pending his decision of whether to comfort feed vs tube feeds will initiate the option he chooses as he has gone a few days now without oral intake; given his overall prognosis, even with improved nutrition his overall recovery is poor - he does report a poor quality of life and tired of this process - MRI negative for mets, stroke, etc. - Continue Ranitidine Q8H; Continue Zosyn therapy - Palliative Care following - Discussed with Dr. Taveras - patient appears to be leaning towards hospice and will continue to follow to set up arrangements as needed Present on Admission?: Yes (2) RLL pneumonia: - This seems related to aspiration; Zosyn therapy - On 09/16 had acute respiratory distress and tachycardia - CXR with worsening volume overload and congestive change; significant asymmetric infiltrates in R lung with is significantly changed from previous imaging-question of pulmonary edema vs infectious etiology; moderate R pleural effusion - Lasix 40 mg IV x 1 dose - HR improved and respiratory status improved - will monitor diuresis - if further symptoms occur can give additional dose of Lasix -- Will hold further IVF so decision on nutrition will need to be made soon - Given his Keytruda - concern for pneumonitis? - Will continue his Prednisone 40 mg IV daily that was initiated for stress dosing in setting of his chronic steroid use and initial hypotension on admission - likely can start to taper this as BP is more stabilized Present on Admission?: Yes (3) Squamous cell carcinoma of lung, stage IV: - Dx Sep 2018 and S/P RLL Lobectomy and Partial Resection of 2 Ribs now with recurrence - Currently on Keytruda - next scheduled chemotherapy 09/18 - Dr. Ramirez is following and likely patient considering hospice conversion - Continue Fentanyl patch 12 mcg Q3D - pain seems to be improving but may need further titration - will re-evaluate and appreciate palliative input Present on Admission?: Yes (4) Coronary artery disease: - STABLE - Continue to hold oral medications at this time; given his Metoprolol is on hold will need to watch for rebound tachycardia however todays episode seems to correlate with volume overload Present on Admission?: Yes (5) Acute kidney injury: - Likely pre-renal from poor oral intake - Cr at 1.79 and will monitor given cessation of fluids and diuretic use this afternoon - baseline appears around 1.5 Present on Admission?: Yes (6) CKD (chronic kidney disease): baseline Cr about 1.5 - stage 3 now w/ concomitant MARYCHUY hydrate BMP am urine sediment bland and w/o casts (7) Rheumatoid arthritis: - H/O Remicade - recently D/C'd - Chronic Prednisone 5 mg HS - was initially started on Solu-Medrol 40 mg IV daily for stress dosing given initial hypotension but since his BP is much improved - As mentioned above will continue this dose today given his presentation/possibility of pneumonitis but should begin to taper down - pending decision on goals of care will determine oral options Present on Admission?: Yes (8) Type II diabetes mellitus: - A1c 6.7 - BSGs stable even without intake; hold oral agents and SSI if necessary Present on Admission?: Yes (9) Neuropathy: - Gabapentin on hold due to dysphagia/NPO status Present on Admission?: Yes (10) Severe protein-calorie malnutrition: - Severe weight loss in setting of progressive Stage IV Lung CA and now significant dysphagia - Awaiting patient's decision on peg tube vs comfort feeds Present on Admission?: Yes (11) Anemia: multifactorial - due to cancer, malnutrition, etc. consider iron studies, b12, folate Tx if Hb <7.5 (12) Immunosuppression due to drug therapy: - NOTED (13) DVT prophylaxis: - Heparin Disposition: It appears patient is leaning towards hospice possibly at a facility and will F/U with patient tomorrow and also to discuss feeding; ultimately discharge will depend on decision of hospice/arrangements vs improvement in symptoms Subjective Patient evaluated on multiple occasions. On initial encounter he stated he is very tired and appears very flat fatigued. He wanted to rest and await his 's arrival today to further discuss long-term plan. He acutely developed SOB and tachycardia. Good response with IV diuretics due to concerns of volume overload on CXR findings. Tachycardia resolved and breathing improved. He was still deciding on nutrition plan on my visits but upon review of Heme/Onc note he may have ultimately chosen hospice and will further discuss whether a feeding tube is what he would want vs comfort feedings. Review of Systems Constitutional: + fatigue and + anorexia; no fever and no chills Ear, Nose, Mouth, Throat: + dysphagia; no sore throat Respiratory: + cough and + dyspnea Cardiovascular: no chest pain, no lightheadedness and no edema Gastrointestinal: + constipation; no abdominal pain, no nausea, no vomiting and no diarrhea/loose stools Genitourinary: no dysuria Physical Exam Constitutional: + acute distress, + ill appearing and + frail appearing Eyes: + anicteric sclerae Neck: trachea midline Respiratory: + respiratory distress and + labored breathing Auscultation: + crackles Cardiovascular: Rate/Rhythm: regular rhythm and + tachycardic Gastrointestinal (Abdomen): Inspection/Auscultation: normal bowel sounds Percussion/Palpation: abdomen soft; abdomen nontender Musculoskeletal: Head/Neck/Chest: normocephalic and head atraumatic Skin: no rashes, warm and dry Neurologic: moves all extremities Psychiatric: Orientation: alert and oriented x 3 Affect: + flat affect Mood: + depressed mood and + irritable mood Results & Data Vital Signs (Past 12 Hours) Vital Signs Temp Pulse Resp BP BP Pulse Ox 09/16/19 19:25 36.8 C 72 131/76 95 09/16/19 16:02 36.7 C 104 H 20 150/73 H 95 09/16/19 13:39 102 H 20 93 09/16/19 13:00 118 H 30 H 157/91 H 94 09/16/19 11:24 36.4 C L 87 18 154/79 H 97 PG Care Time/CCT Total # of Minutes Spent Total Time Spent with Patient: Total time spent is greater than 50% in coordination of care (as documented) at patient's floor/unit and/or counseling patient: (1) Dysphagia Dysphagia type: unspecified Qualified Code(s): R13.10 - Dysphagia, unspecified (2) RLL pneumonia Aspiration pneumonia type: due to regurgitated food Pneumonia type: aspiration pneumonia Qualified Code(s): J69.0 - Pneumonitis due to inhalation of food and vomit (3) Squamous cell carcinoma of lung, stage IV Laterality: unspecified laterality Qualified Code(s): C34.90 - Malignant neoplasm of unspecified part of unspecified bronchus or lung (4) Coronary artery disease Coronary Disease-Associated Artery/Lesion type: [place] artery [place] vs. transplanted heart: [place] heart Associated angina: without angina Qualified Code(s): I25.10 - Atherosclerotic heart disease of [place] coronary artery without angina pectoris (5) CKD (chronic kidney disease) Chronic kidney disease stage: stage 3 (moderate) Qualified Code(s): N18.3 - Chronic kidney disease, stage 3 (moderate) (6) Rheumatoid arthritis Rheumatoid arthritis location: unspecified site Rheumatoid factor presence: with rheumatoid factor Qualified Code(s): M05.9 - Rheumatoid arthritis with rheumatoid factor, unspecified (7) Type II diabetes mellitus Diabetes mellitus bed bug exterminator insulin use: with mcfp use Diabetes mellitus complication status: without complication Qualified Code(s): E11.9 - Type 2 diabetes mellitus without complications; Z79.4 - nursing home (current) use of insulin (8) Anemia Anemia type: other cause Other causes of anemia: other cause, not classified Qualified Code(s): D64.89 - Other specified anemias
[2019-09-17] MEDS: PIPERACILLIN/TAZOBACTAM 3.375 GM in DEXTROSE 5% 100 ML IV SCH ×3 (00:02→17:05)
[2019-09-17] MEDS: CHECK FENTANYL PATCH PLACEMENT SCH ×3 (00:03→16:26)
[2019-09-17] MEDS: HEPARIN SOD 5,000 UNIT/0.5 ML VIAL SQ SCH ×2 (05:09→13:55)
[2019-09-17 06:37] LABS: Creatinine Clr Calc Pharmacy 29.1 ml/min; Est GFR (African American) 40.6
[2019-09-17] MEDS: INSULIN ASPART 100 UNITS/ML 3 ML PEN SC SCH ×4 (08:12→21:00)
[2019-09-17] MEDS: methylPREDNISolone 40 MG in SYRINGE 0 ML IV SCH (09:08)
[2019-09-17] MEDS: NYSTATIN SUSP 500,000 U/5 ML UDC PO SCH ×4 (09:16→21:06)
--- NOTE | 2019-09-17 11:13 | Palliative Care Progress Note ---
Date of Service September 17, 2019 Assessment & Plan (1) Goals of care, counseling/discussion: -Met with patient, his son and [id number], in room 452. Patient AA&O x4, good insight into situation. -Dr. Ramirez stopped by last evening to talk with patient and his . After discussion, patient has decided that he would like to go to SNF with hospice. -Had a long discussion with patient today, some of it in the presence of his son and DIL. -Patient confirmed he would like to go to SNF with hospice-- will have case management follow up. will be here around noon. -Discussed code status. Patient has decided to transition to a DO NOT RESUSCITATE. Son and DIL in agreement with this. Patient has living will which aligns with this. -Discussed comfort feeding despite risk of aspiration at length as well. Patient confirmed he does NOT want a feeding tube. Would recommend following strict aspiration precautions and have speech come by to recommend consistency of food/fluids and allow patient to eat for comfort. He wants to make this final decision when his is present. -POLST form would be helpful. -Patient's is going to call their natural resources professor to see if he had any recommendations on hospice agency. -We will continue to follow as needed. (2) Dysphagia: (3) Squamous cell carcinoma of lung, stage IV: (4) Cancer associated pain: Subjective Patient is AA&O today. Does c/o weakness, but really no other complaints. Son and [id number] present. Long discussion about goals and plan. Review of Systems Review of Systems: Denies pain, SOB or other discomfort. Does c/o significant generalized weakness. Physical Exam Constitutional: + frail appearing; no acute distress ENMT: external ear and nose normal, oropharynx normal Respiratory: normal respiratory effort; no labored breathing Cardiovascular: Rate/Rhythm: regular rate and regular rhythm Neurologic: moves all extremities and awake Psychiatric: Orientation: alert and oriented x 3 Insight: good insight Results & Data Vital Signs (Past 12 Hours) Vital Signs Temp Pulse Resp BP BP Pulse Ox 09/17/19 09:11 36.5 C 65 20 133/77 100 09/17/19 04:57 36.2 C L 66 18 138/72 100 09/16/19 23:18 36.7 C 70 18 143/71 H 97 Supervising Physician Co-Signing Physician Notes Patient seen and examined, patient's , son, and [id number] at bedside. Patient appears less fatigued and more alert than on my exam yesterday. PE: NAD HEENT: EOMI, mild [place] Respirations: Unlabored CV: Regular rate Abdomen: Not distended Neuro: Alert and oriented x4 Agree with above note, assessment and plan as per [facility] House-plan is for discharge to alf facility with hospice care. Patient allowed comfort feeds-prefers chocolate Ensure. PG Care Time/CCT Prolonged Care Time Prolonged Care Time: Yes Total Prolonged Care Time: 65 Time Spent Midlevel 65 minutes with >50% of time spent at bedside with patient and family discussing condition and GOC. Attending Spent 25 minutes in addition to the above 65 minutes spent by CONTRACTS DIRECTOR for a total of 90 minutes with greater than 50% of the time at bedside discussing goals of care (1) Squamous cell carcinoma of lung, stage IV Laterality: unspecified laterality Qualified Code(s): C34.90 - Malignant neoplasm of unspecified part of unspecified bronchus or lung (2) Dysphagia Dysphagia type: unspecified Qualified Code(s): R13.10 - Dysphagia, unspecified
[2019-09-17] MEDS: HEPARIN 100 UNIT/ML 5ML FLUSH FLUSH PRN (13:13)
--- NOTE | 2019-09-17 19:34 | Hospitalist Progress Note ---
Date of Service September 17, 2019 Assessment & Plan (1) Dysphagia: - It is uncertain what quickly exacerbated his dysphagia - at this time video swallow shows aspiration with all consistencies - Ultimate plan is to [facility] on hospice - planning on comfort feeds and with trial different textures/consistencies to promote safest swallowing situation however discussed that ultimately if he wants to eat something then have it - states he loves chocolate pudding, chocolate Ensure, Laura candy bars, etc. -- Patient and family are aware of ongoing aspiration in setting of eating again as was discussed this afternoon with patient, family, palliative, and medicine - Will continue Zosyn at this time - will discuss with Pulm about considerations in regards to a prophylactic approach to try and suppress some worsening symptoms of pneumonia and patient/family aware that this ultimately would not cure his condition but may promote some additional comfort - Palliative care following - discussed together with patient/family at bedside - conversion to hospice with plans to go to [facility] -- Discussed D/C of non-essential medications which will go over with patient/family as most are vitamins and given his good A1c and likely progressive oral intake decline he likely can remain off anti-diabetics (2) RLL pneumonia: - This seems related to aspiration; Zosyn therapy - On 09/16 had acute respiratory distress and tachycardia - CXR with worsening volume overload and congestive change; significant asymmetric infiltrates in R lung with is significantly changed from previous imaging-question of pulmonary edema vs infectious etiology; moderate R pleural effusion - Lasix 40 mg IV x 1 dose - HR improved and respiratory status improved - no further intervention is needed at this time - Given his Keytruda - concern for pneumonitis? - Will reduce Methylprednisolone to 20 mg IV daily and taper down to home dosing (3) Squamous cell carcinoma of lung, stage IV: - Dx Sep 2018 and S/P RLL Lobectomy and Partial Resection of 2 Ribs now with recurrence - Currently on Keytruda - next scheduled chemotherapy 09/18 - Dr. Ramirez is following and patient plans to change to hospice services - Continue Fentanyl patch 12 mcg Q3D - pain seems to be improving but may need further titration - will re-evaluate and appreciate palliative input (4) Coronary artery disease: - STABLE - Continue to hold oral medications at this time; given his Metoprolol is on hold will need to watch for rebound tachycardia - if tolerated would continue this on D/C as long as BP remains stable to prevent rapid heart rates which could lead to discomfort (5) Acute kidney injury: - Superimposed on CKD III; Likely pre-renal from poor oral intake - will hold further labs (6) Rheumatoid arthritis: - H/O Remicade - recently D/C'd - Chronic Prednisone 5 mg HS - was initially started on Solu-Medrol 40 mg IV daily for stress dosing given initial hypotension but since his BP is much improved - As mentioned above will taper given his presentation/possibility of pneumonitis on 09/16 - will taper to home dosing (7) Type II diabetes mellitus: - A1c 6.7 - BSGs stable even without intake; hold oral agents and SSI if necessary - Given age, nearly normal A1c, and progressive decline in oral intake it would be safe to ultimately D/C his oral anti-diabetics and symptoms of hypoglycemia may present discomfort over the possibility of maybe slightly higher sugar readings which I doubt will occur (8) Neuropathy: - Gabapentin likely can resume tomorrow and continue this to promote comfort (9) Severe protein-calorie malnutrition: - Severe weight loss in setting of progressive Stage IV Lung CA and now significant dysphagia - Will allow comfort feeds; states he likes Ensure in the morning and will order this - ultimately this will be an ongoing issue but if he enjoys protein shakes then we will accomodate (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: - NOTED (11) DVT prophylaxis: - Can use SCDs if wanted; will D/C heparin to promote comfort Disposition: Plan is for Hospice at [facility]. Comfort feeds and trials of textures/consistency to see what works the best for him however would not implement any restriction if he requests certain foods; pending arrangements patient would be suitable for discharge. Plan to discuss D/C of non-essential home medications Subjective Reports feeling better today and breathing stable. Met with patient, family, and palliative to discuss goals of care. Plan is for hospice at [facility] with plans for comfort feeds. Patient's spirits appear much improved today as he is smiling and telling jokes. Verbalized no new complaints today Review of Systems Constitutional: + fatigue; no fever and no chills Ear, Nose, Mouth, Throat: + dysphagia; no sore throat Respiratory: + cough; no dyspnea Cardiovascular: no chest pain Gastrointestinal: + constipation; no abdominal pain, no nausea, no vomiting an d no diarrhea/loose stools Genitourinary: no dysuria Integumentary: no rash Psychiatric: no depression and no anxiety Physical Exam Constitutional: + frail appearing; no acute distress and not ill appearing Eyes: + anicteric sclerae Neck: trachea midline Respiratory: normal respiratory effort and + labored breathing Auscultation: + crackles Cardiovascular: Rate/Rhythm: regular rate and regular rhythm Gastrointestinal (Abdomen): Inspection/Auscultation: normal bowel sounds Percussion/Palpation: abdomen soft; abdomen nontender Musculoskeletal: Head/Neck/Chest: normocephalic and head atraumatic Skin: no rashes, warm and dry Neurologic: moves all extremities Psychiatric: Orientation: alert and oriented x 3 Results & Data Vital Signs (Past 12 Hours) Vital Signs Temp Pulse Resp BP BP Pulse Ox 09/17/19 14:48 37.0 C 88 22 133/68 97 09/17/19 11:58 36.4 C L 68 16 119/82 09/17/19 09:11 36.5 C 65 20 133/77 100 PG Care Time/CCT Total # of Minutes Spent Total Time Spent with Patient: Total time spent is greater than 50% in coordination of care (as documented) at patient's floor/unit and/or counseling patient: (1) Dysphagia Dysphagia type: unspecified Qualified Code(s): R13.10 - Dysphagia, unspecified (2) RLL pneumonia Aspiration pneumonia type: due to regurgitated food Pneumonia type: aspiration pneumonia Qualified Code(s): J69.0 - Pneumonitis due to inhalation of food and vomit (3) Squamous cell carcinoma of lung, stage IV Laterality: unspecified laterality Qualified Code(s): C34.90 - Malignant neoplasm of unspecified part of unspecified bronchus or lung (4) Coronary artery disease Coronary Disease-Associated Artery/Lesion type: [place] artery [place] vs. transplanted heart: [place] heart Associated angina: without angina Qualified Code(s): I25.10 - Atherosclerotic heart disease of [place] coronary artery without angina pectoris (5) Rheumatoid arthritis Rheumatoid arthritis location: unspecified site Rheumatoid factor presence: with rheumatoid factor Qualified Code(s): M05.9 - Rheumatoid arthritis with rheumatoid factor, unspecified (6) Type II diabetes mellitus Diabetes mellitus correction insulin use: with vermin exterminator use Diabetes mellitus complication status: without complication Qualified Code(s): E11.9 - Type 2 diabetes mellitus without complications; Z79.4 - long-term (current) use of insulin
[2019-09-17] MEDS ORDERED: MoRPHine SULFATE 5 MG/0.25 ML UDP PO PRN (20:02)
[2019-09-18] MEDS: PIPERACILLIN/TAZOBACTAM 3.375 GM in DEXTROSE 5% 100 ML IV SCH ×3 (01:00→16:51)
[2019-09-18] MEDS: CHECK FENTANYL PATCH PLACEMENT SCH ×3 (01:07→16:08)
[2019-09-18] MEDS: NYSTATIN SUSP 500,000 U/5 ML UDC PO SCH ×4 (08:42→20:41)
[2019-09-18] MEDS: INSULIN ASPART 100 UNITS/ML 3 ML PEN SC SCH ×3 (08:43→17:33)
[2019-09-18] MEDS ORDERED: methylPREDNISolone 20 MG in SYRINGE 0 ML IV SCH (09:00)
[2019-09-18] MEDS: HEPARIN 100 UNIT/ML 5ML FLUSH FLUSH PRN (13:40)
--- NOTE | 2019-09-18 15:04 | Palliative Care Progress Note ---
Date of Service September 18, 2019 Assessment & Plan (1) Goals of care, counseling/discussion: -Plan is for SNF with hospice care. Case management working on discharge plan. Hoping for [facility] as it is close to patient's . -Patient has no new complaints of pain. Does have Roxanol ordered as needed. -Had a lot of coughing with eating/drinking, but no distress. -Patient requested to take oxygen off. Removed oxygen and even after about 15 minutes of talking, O2 sat was 98-99% on room air. Notified nurse to monitor for hypoxia or increased SOB. -We will follow as needed. (2) Dysphagia: (3) Squamous cell carcinoma of lung, stage IV: (4) Cancer associated pain: Subjective Patient c/o generally just feeling "down" and uncomfortable. But no specific c/o pain. No family at bedside. Patient did loosen up and was telling some jokes. Review of Systems Review of Systems: Denies pain, SOB. Does c/o significant weakness and generalized discomfort Physical Exam Constitutional: + frail appearing; no acute distress ENMT: external ear and nose normal, oropharynx normal Respiratory: normal respiratory effort; no labored breathing Cardiovascular: Rate/Rhythm: regular rate and regular rhythm Neurologic: moves all extremities and awake Psychiatric: Orientation: alert and oriented x 3 Insight: good insight Results & Data Vital Signs (Past 12 Hours) Vital Signs Temp Pulse Resp BP Pulse Ox 09/18/19 11:38 36.8 C 67 16 135/62 100 09/18/19 07:23 36.3 C L 67 20 143/80 H 97 Time Spent Midlevel 35 minutes with >50% of the time spent at bedside with patient discussing plan of care, as well as collaborating with IDT to discuss plan. (1) Dysphagia Dysphagia type: unspecified Qualified Code(s): R13.10 - Dysphagia, unspecified (2) Squamous cell carcinoma of lung, stage IV Laterality: unspecified laterality Qualified Code(s): C34.90 - Malignant neoplasm of unspecified part of unspecified bronchus or lung
--- NOTE | 2019-09-18 18:43 | Hospitalist Progress Note ---
Date of Service September 18, 2019 Assessment & Plan (1) Dysphagia: - It is uncertain what quickly exacerbated his dysphagia - at this time video swallow shows aspiration with all consistencies - Ultimate plan is to [facility] on hospice - planning on comfort feeds and can trial different textures/consistencies to promote safest swallowing situation however discussed that ultimately if he wants to eat something then have it - states he loves chocolate pudding, chocolate Ensure, [place] candy bars, etc. -- Patient and family are aware of ongoing aspiration in setting of eating again as was discussed this afternoon with patient, family, palliative, and medicine - Will continue Zosyn at this time -likely to Augmentin suspension as a prophylactic approach to try and suppress some worsening symptoms of pneumonia and patient/family aware that this ultimately would not cure his condition but may promote some additional comfort - Palliative care following - discussed together with patient/family at bedside - conversion to hospice with plans to go to [facility] -- Discussed D/C of non-essential medications which will go over with patient/family as most are vitamins and given his good A1c and likely progressive oral intake decline he likely can remain off anti-diabetics (2) RLL pneumonia: - This seems related to aspiration; Zosyn therapy - On 09/16 had acute respiratory distress and tachycardia - CXR with worsening volume overload and congestive change; significant asymmetric infiltrates in R lung with is significantly changed from previous imaging-question of pulmonary edema vs infectious etiology; moderate R pleural effusion - Lasix 40 mg IV x 1 dose given- HR improved and respiratory status improved - no further intervention is needed at this time - Given his Keytruda - concern for pneumonitis? - Will continue prednisone 5 mg nightly (3) Squamous cell carcinoma of lung, stage IV: - Dx Sep 2018 and S/P RLL Lobectomy and Partial Resection of 2 Ribs now with recurrence -Was on Keytruda -- Dr. Ramirez is following and patient plans to change to hospice services - Continue Fentanyl patch 12 mcg Q3D; Roxanol as needed (4) Coronary artery disease: - STABLE (5) Acute kidney injury: - Superimposed on CKD III; Likely pre-renal from poor oral intake - will hold further labs (6) Rheumatoid arthritis: - H/O Remicade - recently D/C'd - Chronic Prednisone 5 mg HS - was initially started on Solu-Medrol 40 mg IV daily for stress dosing given initial hypotension but since his BP is much improved can continue home dosing (7) Type II diabetes mellitus: - A1c 6.7 - BSGs stable even without adequate intake; hold oral agents and SSI if necessary - Given age, nearly normal A1c, and progressive decline in oral intake it would be safe to ultimately D/C his oral anti-diabetics and symptoms of hypoglycemia may present discomfort over the possibility of maybe slightly higher sugar readings which I doubt will occur (8) Neuropathy: - Gabapentin likely can resume tomorrow and to promote comfort (9) Severe protein-calorie malnutrition: - Severe weight loss in setting of progressive Stage IV Lung CA and now significant dysphagia - Will allow comfort feeds; states he likes Ensure in the morning and will order this - ultimately this will be an ongoing issue but if he enjoys protein shakes then we will accomodate (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 Comfort feeds and trials of textures/consistency to see what works the best for him however would not implement any restriction if he requests certain foods; pending arrangements patient would be suitable for discharge Subjective Reports doing okay today. He denies any pain or respiratory distress. He does endorse a lot of coughing with attempts at eating today. Also states he only had a few bites of each food. He met with the hospice agency today. Plans are to go to [facility] tomorrow on hospice. Review of Systems Constitutional: + fatigue; no fever and no chills Ear, Nose, Mouth, Throat: + dysphagia; no sore throat Respiratory: + cough (With attempts at eating); no dyspnea Cardiovascular: no chest pain Gastrointestinal: no abdominal pain, no nausea and no vomiting Genitourinary: no dysuria Physical Exam Constitutional: + frail appearing; no acute distress and not ill appearing Eyes: + anicteric sclerae Neck: trachea midline Respiratory: normal respiratory effort Musculoskeletal: Head/Neck/Chest: normocephalic and head atraumatic Skin: no rashes, warm and dry Neurologic: moves all extremities Psychiatric: A+Ox3, euthymic affect Results & Data Vital Signs (Past 12 Hours) Vital Signs Temp Pulse Resp BP BP Pulse Ox 09/18/19 15:18 36.7 C 65 16 117/70 96 09/18/19 11:38 36.8 C 67 16 135/62 100 09/18/19 07:23 36.3 C L 67 20 143/80 H 97 PG Care Time/CCT Total # of Minutes Spent Total Time Spent with Patient: Total time spent is greater than 50% in coordination of care (as documented) at patient's floor/unit and/or counseling patient: (1) Dysphagia Dysphagia type: unspecified Qualified Code(s): R13.10 - Dysphagia, unspecified (2) RLL pneumonia Aspiration pneumonia type: due to regurgitated food Pneumonia type: aspiration pneumonia Qualified Code(s): J69.0 - Pneumonitis due to inhalation of food and vomit (3) Squamous cell carcinoma of lung, stage IV Laterality: unspecified laterality Qualified Code(s): C34.90 - Malignant neoplasm of unspecified part of unspecified bronchus or lung (4) Coronary artery disease Coronary Disease-Associated Artery/Lesion type: [place] artery [place] vs. transplanted heart: [place] heart Associated angina: without angina Qualified Code(s): I25.10 - Atherosclerotic heart disease of [place] coronary artery without angina pectoris (5) Rheumatoid arthritis Rheumatoid arthritis location: unspecified site Rheumatoid factor presence: with rheumatoid factor Qualified Code(s): M05.9 - Rheumatoid arthritis with rheumatoid factor, unspecified (6) Type II diabetes mellitus Diabetes mellitus exterminator helper insulin use: with penitentiary use Diabetes mellitus complication status: without complication Qualified Code(s): E11.9 - Type 2 diabetes mellitus without complications; Z79.4 - [facility] (current) use of insulin
[2019-09-18] MEDS: predniSONE 5 MG TAB PO SCH ×2 (21:06→21:22)
[2019-09-19] MEDS: PIPERACILLIN/TAZOBACTAM 3.375 GM in DEXTROSE 5% 100 ML IV SCH (00:38)
[2019-09-19] MEDS: CHECK FENTANYL PATCH PLACEMENT SCH ×2 (00:39→08:56)
[2019-09-19 07:22] VITALS: O2SAT 100
[2019-09-19] MEDS: NYSTATIN SUSP 500,000 U/5 ML UDC PO SCH ×2 (08:56→12:27)
[2019-09-19] MEDS ORDERED: AMOXICILLIN/CLAVULANATE SUSP 250MG/5ML 75ML BOTTLE PO SCH (09:30)
[2019-09-19 11:11] VITALS: TEMP 98.1
[2019-09-19] MEDS: fentaNYL 12 MCG/HR TDSY TD SCH (15:04)
[2019-09-19 15:44] VITALS: BP 142/73; PULSE 54
--- NOTE | 2019-09-19 18:05 | Discharge Summary ---
Date of Service September 19, 2019 Admission HPI Per Admitting Provider This is an 84 yo M with PMHx of squamous cell lung carcinoma of the RLL, diagnosed Sep 2018, currently on chemotherapy with Keytruda for recurrence of his cancer, and follows with Dr. Ramirez. A EBUS was recommended, so was recently seen by Dr. Arcos on 08/05/19 where he was evaluated and it was decided that he would need a CT guided biopsy. The patient has not yet underwent CT-guided biopsy. He has also been referred for palliative radiation to help with pain management. Patient had his first round of Keytruda approximately 3 weeks ago, his next scheduled session is 09/18/2019. Other PMHx includes RA, CKD, CAD, DM type II and history of MO. He presents today with worsening shortness of breath. Patient notes that this is been going on for a few days. He reports dysphasia as well, feeling of food getting stuck in his esophagus, and has choked on this, and needs his to slap him on the back. He also notes that this has caused him to dry heaves/vomit several times within the past 2 days. He is unsure if he aspirated, but has not been able to eat or drink much at all today. He does typically not wear any supplemental O2. He has been having difficulty with minimal ADLs, walking, and sits most of the time. He reports his worst pain rated as an 8/10 is at the base of his spine and typically nothing alleviates this. He also reports a right upper abdomen/right rib cage sided pain which is constantly a 4/10, s/p lobectomy approximately 1 year ago. He denies any fevers or chills. Only at bedside patient's BP = 77/44, on repeat check and smaller cuff it is 69/42. Started on IVF NSS 250 mL bolus followed by 125 mL/h continuously WBC equal 12.02 Principal Diagnosis Dysphagia; Lung Cancer Discharge Exam Constitutional + frail appearing; no acute distress and not ill appearing Eyes + anicteric sclerae Neck trachea midline Respiratory normal respiratory effort Auscultation: + crackles Cardiovascular Rate/Rhythm: regular rate and regular rhythm Gastrointestinal (Abdomen) Inspection/Auscultation: normal bowel sounds Percussion/Palpation: abdomen soft; abdomen nontender Musculoskeletal Head/Neck/Chest: normocephalic and head atraumatic Skin no rashes, warm and dry Neurologic moves all extremities Psychiatric A+Ox3, euthymic affect Orientation: alert and oriented x 3 Affect: + flat affect Mood: + depressed mood and + irritable mood Discharge Data Allergies Allergy/AdvReac Type Severity Reaction Status Date / Time metformin [From Glucophage] AdvReac Intermediate Diarrhea Verified 08/14/19 09:37 Consultations 09/12/19 18:01 Consult Gastroenterology Routine 09/12/19 20:12 Consult Case Management - Discharge Planning Routine Consult Oncology Routine Consult Palliative Care Routine Ordered Studies 09/12/19 14:22 CT angio chest PE protocol Stat CT head/brain wo con Stat 09/12/19 14:52 CT thoracic spine wo con Stat 09/13/19 09:33 FL video swallow Routine 09/13/19 10:12 FL barium swallow Routine 09/13/19 15:28 MR brain wo con Routine Hospital Course (1) Dysphagia: - It is uncertain what quickly exacerbated his dysphagia - at this time video swallow shows aspiration with all consistencies - Ultimate plan is to go to [facility] on hospice - planning on comfort feeds and can trial different textures/consistencies to promote safest swallowing situation however discussed that ultimately if he wants to eat something then have it - states he loves chocolate pudding, chocolate Ensure, [place] candy bars, etc. -- Patient and family are aware of ongoing aspiration in setting of eating again - Treated with Zosyn in-house - discussed doing Augmentin to finish course however having too much difficulty with swallowing and was discussed with him today to stop further antibiotics - Palliative care followed -- D/C'd majority of home medications as non-essential; did give recommendations to continue Gabapentin and Prednisone if does not cause distress/discomfort (2) RLL pneumonia: - This seems related to aspiration; Zosyn therapy utilized while admitted - On 09/16 had acute respiratory distress and tachycardia - CXR with worsening volume overload and congestive change; significant asymmetric infiltrates in R lung with is significantly changed from previous imaging-question of pulmonary edema vs infectious etiology; moderate R pleural effusion - Lasix 40 mg IV x 1 dose given- HR improved and respiratory status improved - no further intervention is needed at this time and no on hospice therapy - Given his Keytruda - concern for pneumonitis? - Will continue prednisone 5 mg nightly if he can tolerate swallowing (3) Squamous cell carcinoma of lung, stage IV: - Dx Sep 2018 and S/P RLL Lobectomy and Partial Resection of 2 Ribs now with recurrence - Was on Keytruda -- Dr. Ramirez followed and patient plans to change to hospice services - Continue Fentanyl patch 12 mcg Q3D; Roxanol as needed (4) Coronary artery disease: - STABLE (5) Acute kidney injury: - Superimposed on CKD III; Likely pre-renal from poor oral intake - will hold further labs (6) Rheumatoid arthritis: - H/O Remicade - recently D/C'd - Chronic Prednisone 5 mg HS - was initially started on Solu-Medrol 40 mg IV daily for stress dosing given initial hypotension but since his BP is much improved can continue home dosing if able to swallow (7) Type II diabetes mellitus: - A1c 6.7 - Given age, nearly normal A1c, and progressive decline in oral intake, and hospice care it would be safe to ultimately D/C his oral anti-diabetics as sympt oms of hypoglycemia may present discomfort over the possibility of slightly higher sugar readings which I doubt will occur (8) Neuropathy: - Gabapentin likely can resume tomorrow and to promote comfort (9) Severe protein-calorie malnutrition: - Severe weight loss in setting of progressive Stage IV Lung CA and now significant dysphagia - Will allow comfort feeds; states he likes Ensure in the morning and will order this - ultimately this will be an ongoing issue but if he enjoys protein shakes then we will accomodate (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: - NOTED Total Time Total Time Spent Total Time Spent (In Minutes): Greater than 30 minutes Discharge Plan Discharge Items Patient Disposition: Hospice - Medical Facility Reason For Visit: RLL PNEUMONIA,DYSPNEA,SCLC Discharge Diagnosis: Lung Cancer; Dysphagia Activity: Resume your previous activity Non-emergency contact: Primary Care Provider Call non-emergency contact if: your pain is not controlled and your pain is worsening Follow-up/Referrals: Chacho Beyer MD [Primary Care Provider] - Diet: Regular Diet Comment: Comfort feeds - can trial different textures/consistencies Addtl Attending Provider Instructions: Lung Cancer/Dysphagia/Pneumonia: - You were admitted due to difficulty swallowing and unfortunately all types of food are going down the wrong pipe. We are treating you for a pneumonia likely from getting food down into the lungs. - At this time you have decided to go onto hospice services. We will stop further antibiotics as this was not tolerated well this morning and as discussed this ultimately this will not fix the swallowing difficulties - You can eat/drink as you want or not at all if this gives you discomfort. No restrictions with eating or drinking and you may want to try different textures or consistencies of food to see if this helps prevent coughing - At this time, the home medications you used to take can be stopped. Would consider taking the Prednisone 5 mg daily if it doesn't cause discomfort when swallowing as some people's body gets used to being on steroids for long periods of time. The only other one that might be helpful is the gabapentin at night to help with neuropathy (numbness/tingling) but again if this isn't bothering you then this can be stopped as well. - Would stop your sugar medications as your A1c is 6.7 and having a low sugar can cause more discomfort then having higher sugars which your sugar has been stable Mr. Bhatia, it was a pleasure to meet you and your family. Tell all your jokes at [place] :) Pending Studies at Discharge: No Stand-Alone Forms: My [facility] Skilled Items Patient informed of condition?: Yes DNR: Yes Discharge Level of Care: Other Communicable Disease: No Discharge Prognosis: Stable Lines: None Urinary Catheter: No Medications and DC Order Prescriptions: New morphine concentrate 20 mg/mL syringe 5 mg PO Q3H PRN (Reason: Pain or Distress) Qty: 6 RF: 0 Continued prednisone 5 mg Tablet 5 mg PO HS RF: 0 albuterol sulfate [ProAir HFA] 90 mcg/actuation Hfa Aerosol Inhaler 2 puff INHALATION Q6H PRN (Reason: Wheezing) RF: 0 gabapentin 300 mg capsule 900 mg PO HS RF: 0 lidocaine [Lidoderm] 5 % Adhesive Patch,Medicated 1 patch TOPICAL DAILY PRN (Reason: Pain) RF: 0 Changed docusate sodium 100 mg Capsule 100 mg PO BID PRN (Reason: Constipation) Qty: 0 RF: 0 Discontinued allopurinol 300 mg Tablet 300 mg PO QAM RF: 0 aspirin [Aspir-81] 81 mg Tablet,Delayed Release (Dr/Ec) 81 mg PO HS RF: 0 Calcium 600 + D(3) 600 mg calcium- 200 unit Capsule 1 tab PO QAM RF: 0 omega-3 fatty acids-fish oil [Fish Oil] 360-1,200 mg Capsule 1 cap PO BID RF: 0 folic acid 400 mcg Tablet 400 mcg PO QAM RF: 0 metoprolol tartrate 50 mg Tablet 25 mg PO BID RF: 0 multivitamin [Multiple Vitamins] Tablet 1 tab PO QAM RF: 0 cholecalciferol (vitamin D3) 2,000 unit Capsule 2,000 units PO HS RF: 0 acetaminophen [Tylenol Extra Strength] 500 mg Tablet 1,000 mg PO Q6H PRN (Reason: Pain) RF: 0 simvastatin 40 mg tablet 40 mg PO HS RF: 0 Keytruda 25 mg/mL Solution 0 mg IV UD RF: 0 Januvia 100 mg tablet 100 mg PO QAM RF: 0 Discharge Orders: Discharge Order (Routine); Ordered 09/19/19 Ordered By: Dipti Louise Admission Data Admit Date/Time: 09/12/19 17:20 Attending Provider: James Velázquez Admit Provider: Eron Schroeder Primary Care Provider: Chacho Beyer Other Providers: Dar Hogan ; Richie Ramirez ; Carly Asif ; Candler[place]va Other Interventions: Discharge Summary Assessment (RN) Last Done: 09/19/19 14:54 DC Date/Time DO NOT enter until pt leaves facility: 09/19/19 15:48 Supervising Physician Co-Signing Physician Notes Attending note: patient seen and examined with Dipti Louise PA-C. I agree with her discharge summary. I personally reviewed the labs and imaging findings. Patient is ready for discharge, he is a little down and depressed, says "I am leaving to " still with dysphagia, struggling to swallow no shortness of breath at rest - Dysphagia: aspirating on all consistencies given his stage IV cancer and hospice status, will allow to eat and drink for comfort still not eating much - Stage IV squamous cell lung CA: transition to hospice at [facility] for full details see the d/c summary
== END 2019-09-19 15:48 | disposition hospice, inpatient (51) | DRG 177 ==
LOC: ED 13:35 → 4W 17:20 → SUATTDRO 17:20 → 4W 19:08
DX: N17.9 Acute kidney failure, unspecified; I25.10 Atherosclerotic heart disease of native coronary artery without angina pectoris; E11.40 Type 2 diabetes mellitus with diabetic neuropathy, unspecified; I12.9 Hypertensive chronic kidney disease with stage 1 through stage 4 chronic kidney disease, or unspecified chronic kidney disease; E78.5 Hyperlipidemia, unspecified; J69.0 Pneumonitis due to inhalation of food and vomit; Z51.5 Encounter for palliative care; I25.2 Old myocardial infarction; M10.9 Gout, unspecified; M06.9 Rheumatoid arthritis, unspecified; M62.84 Sarcopenia; R13.10 Dysphagia, unspecified; Z95.5 Presence of coronary angioplasty implant and graft; Z79.84 Long term (current) use of oral hypoglycemic drugs; G89.3 Neoplasm related pain (acute) (chronic); Z87.891 Personal history of nicotine dependence; E43 Unspecified severe protein-calorie malnutrition; E11.22 Type 2 diabetes mellitus with diabetic chronic kidney disease; C34.91 Malignant neoplasm of unspecified part of right bronchus or lung; Z85.51 Personal history of malignant neoplasm of bladder; I65.29 Occlusion and stenosis of unspecified carotid artery; N18.3 Chronic kidney disease, stage 3 (moderate)